=== PATIENT | female | born 1935 | race Caucasian/White ===

== ENCOUNTER → 2016-08-12 | Outpatient (CLI) | payer MEDICARE, MEDICAID ==
[2016-08-12 11:06] LABS: PROTHROMBIN TIME 38.2 SEC (11.4-15.4)
== END ==
LOC: OD 10:07
PROVIDERS: ATTEND Specialist
DX: I48.0 Paroxysmal atrial fibrillation (principal); Z79.01 Long term (current) use of anticoagulants
CPT/HCPCS: 36415; 85610

== ENCOUNTER → 2016-09-17 | Outpatient (CLI) | payer MEDICARE, MEDICAID ==
[2016-09-17 17:21] LABS: PROTHROMBIN TIME 18.2 SEC (11.4-15.4)
== END ==
LOC: OD 15:59
PROVIDERS: ATTEND Specialist
DX: I48.0 Paroxysmal atrial fibrillation (principal); Z79.01 Long term (current) use of anticoagulants
CPT/HCPCS: 36415; 85610

== ENCOUNTER → 2016-09-23 | Outpatient (CLI) | payer MEDICARE, MEDICAID ==
[2016-09-23 12:07] LABS: PROTHROMBIN TIME 26.5 SEC (11.4-15.4)
== END ==
LOC: OD 10:38
PROVIDERS: ATTEND Specialist
DX: I48.0 Paroxysmal atrial fibrillation (principal); Z79.01 Long term (current) use of anticoagulants
CPT/HCPCS: 36415; 85610

== ENCOUNTER 2016-10-10 10:32 | Emergency (ER) | payer MEDICARE, MEDICAID ==
--- NOTE | 2016-10-10 11:19 | ER Document Report ---
ED Medical Screen (RME) - General Chief Complaint: Pain All Over Stated Complaint: FLU SYMPTOMS Mode of Arrival: Wheelchair Information source: Patient Notes: Patient presents complaining of flulike symptoms with nasal congestion. Patient also complains of abdominal pain for the past week. Nausea with no vomiting or diarrhea. No cough, no fever. Pt does complain of chills hx; pacemaker, hypertension I have greeted and performed a rapid initial assessment of this patient. A comprehensive ED assessment and evaluation of the patient, analysis of test results and completion of the medical decision making process will be conducted by additional ED providers. TRAVEL OUTSIDE OF THE [place] IN LAST 30 DAYS: No - Related Data Allergies/Adverse Reactions: Penicillins Allergy (Mild, Verified 10/10/16 11:09) Hives Past Medical History - Social History Chew tobacco use (# tins/day): No Frequency of alcohol use: None Drug Abuse: None - Past Medical History Cardiac Medical History: Reports: Hx Coronary Artery Disease, Hx Hypertension Denies: Hx Heart Attack Pulmonary Medical History: Reports: Hx Asthma, Hx COPD Denies: Hx Bronchitis, Hx Pneumonia Neurological Medical History: Denies: Hx Cerebrovascular Accident, Hx Seizures Renal/ Medical History: Denies: Hx Peritoneal Dialysis Musculoskeltal Medical History: Reports Hx Arthritis Past Surgical History: Reports: Hx Cardiac Surgery - paced, Hx Orthopedic Surgery - cervical fusion, Hx Pacemaker - Immunizations Hx Diphtheria, Pertussis, Tetanus Vaccination: No Physical Exam - Vital signs Vitals: Temp Pulse Resp BP Pulse Ox 98.2 F 63 18 145/59 H 98 10/10/16 10:38 10/10/16 10:38 10/10/16 10:38 10/10/16 10:38 10/10/16 10:38 - Abdominal Tenderness: Tender - Upper abdomen Course - Vital Signs Vital signs: Temp Pulse Resp BP Pulse Ox 98.2 F 63 18 145/59 H 98 10/10/16 10:38 10/10/16 10:38 10/10/16 10:38 10/10/16 10:38 10/10/16 10:38
[2016-10-10 11:45] LABS: ABSOLUTE EOSINOPHILS # (AUTO) 0.1 10^3/uL (0.0-0.6); ABSOLUTE MONOCYTES (AUTO) 0.6 10^3/uL (0.1-1.4); ABSOLUTE NEUT (AUTO) 4.8 10^3/uL (1.7-8.2); BASOPHILS % (AUTO) 0.5 % (0-2); EOSINOPHILS % (AUTO) 1.4 % (0-6); HEMATOCRIT 38.6 % (36.0-47.0); HEMOGLOBIN 12.7 g/dL (12.0-15.5); HGB HCT DIFFERENCE -0.5; LYMPHOCYTES % (AUTO) 26.1 % (13-45); MEAN CORPUSCULAR HEMOGLOBIN 27.2 pg (27.0-33.4); MEAN CORPUSCULAR HGB CONC 32.9 g/dL (32.0-36.0); MEAN CORPUSCULAR VOLUME 83 fl (80-97); MONOCYTES % (AUTO) 7.6 % (3-13); RED BLOOD COUNT 4.67 10^6/uL (3.72-5.28); RED CELL DISTRIBUTION WIDTH 16.1 % (11.5-14.0); SEGMENTED NEUTROPHILS % (AUTO) 64.4 % (42-78); WHITE BLOOD COUNT 7.5 10^3/uL (4.0-10.5)
[2016-10-10 12:14] LABS: ALANINE AMINOTRANSFERASE 37 U/L (9-52); ALBUMIN 4.4 g/dL (3.5-5.0); ALKALINE PHOSPHATASE 102 U/L (38-126); ANION GAP 14 (5-19); ASPARTATE AMINO TRANSFERASE 24 U/L (14-36); BILIRUBIN,DIRECT 0.1 mg/dL (0.0-0.4); BILIRUBIN,TOTAL 0.6 mg/dL (0.2-1.3); BLOOD UREA NITROGEN 20 mg/dL (7-20); CALCIUM 10.4 mg/dL (8.4-10.2); CARBON DIOXIDE 28 mmol/L (22-30); CHLORIDE 100 mmol/L (98-107); CREATINE KINASE 89 U/L (30-135); CREATININE RESULT 0.84 mg/dL (0.52-1.25); GLUCOSE 118 mg/dL (75-110); LIPASE 51.6 U/L (23-300); POTASSIUM 4.4 mmol/L (3.6-5.0); SODIUM 141.7 mmol/L (137-145); TOTAL PROTEIN 7.4 g/dL (6.3-8.2)
[2016-10-10 12:24] LABS: APPEARANCE,URINE SLIGHTLY-CLOUDY; BILIRUBIN,URINE NEGATIVE (NEGATIVE); GLUCOSE, URINE NEGATIVE (NEGATIVE); KETONES,URINE NEGATIVE (NEGATIVE); LEUKOCYTE ESTERASE,URINE SMALL (NEGATIVE); NITRITE,URINE NEGATIVE (NEGATIVE); PROTEIN,URINE 30 mg/dL (NEGATIVE); URINE SPECIFIC GRAVITY 1.013; UROBILINOGEN,URINE NEGATIVE mg/dL (<2.0)
[2016-10-10 12:33] LABS: TROPONIN I < 0.012 ng/mL
--- NOTE | 2016-10-10 13:17 | EKG REPORT ---
SEVERITY:- ABNORMAL ECG - ATRIAL-PACED RHYTHM ABNORMAL S T, CONSIDER ISCHEMIA, DIFFUSE LEADS : Confirmed by: Ari Garcia MD 10-Oct-2016 13:17:15
[2016-10-10] MEDS ORDERED: NORMAL SALINE 1000 ML 1,000 ML IV ONE (14:46)
[2016-10-10] MEDS ORDERED: MAG HYDROX/AL HYDROX/SIMETH SUSP 30 ML UDCUP PO ONE (14:46)
[2016-10-10] MEDS ORDERED: LIDOCAINE 2% VISCOUS SOLN 20 ML UDCUP PO ONE (14:46)
[2016-10-10] MEDS ORDERED: METOCLOPRAMIDE HCL ORAL SOLN 10 MG/10 ML UDCUP PO ONE (14:46)
--- NOTE | 2016-10-10 14:58 | ER Document Report ---
ED GI/ - General Chief Complaint: Pain All Over Stated Complaint: FLU SYMPTOMS Mode of Arrival: Wheelchair Notes: Patient is an 81-year-old female, past medical history hypertension, GERD, presents with 3 days of epigastric pain, nausea and body aches. She is drinking , but not eating as much as normal. She got her flu shot this year. She denies vomiting, chest pain, shortness of breath, back pain, urinary symptoms, diarrhea, constipation, headache or neurologic symptoms. TRAVEL OUTSIDE OF THE [place] IN LAST 30 DAYS: No - Related Data Allergies/Adverse Reactions: Penicillins Allergy (Mild, Verified 10/10/16 11:09) Hives Past Medical History - General Information source: Patient - Social History Smoking Status: Never Smoker Chew tobacco use (# tins/day): No Frequency of alcohol use: None Drug Abuse: None Family History: Reviewed & Not Pertinent Patient has suicidal ideation: No Patient has homicidal ideation: No - Past Medical History Cardiac Medical History: Reports: Hx Coronary Artery Disease, Hx Hypertension Denies: Hx Heart Attack Pulmonary Medical History: Reports: Hx Asthma, Hx COPD Denies: Hx Bronchitis, Hx Pneumonia Neurological Medical History: Denies: Hx Cerebrovascular Accident, Hx Seizures Renal/ Medical History: Denies: Hx Peritoneal Dialysis Musculoskeltal Medical History: Reports Hx Arthritis Past Surgical History: Reports: Hx Cardiac Surgery - paced, Hx Orthopedic Surgery - cervical fusion, Hx Pacemaker - Immunizations Hx Diphtheria, Pertussis, Tetanus Vaccination: No Hx Pneumococcal Vaccination: 07/21/07 Review of Systems - Review of Systems Notes: REVIEW OF SYSTEMS: CONSTITUTIONAL: -fevers, -chills EENT: -eye pain, -difficulty swallowing, -nasal congestion CARDIOVASCULAR:-chest pain, -syncope. RESPIRATORY: -cough, -SOB GASTROINTESTINAL: +epigastric abdominal pain, +nausea, -vomiting, -diarrhea GENITOURINARY: -dysuria, -hematuria MUSCULOSKELETAL: -back pain, -neck pain SKIN: -rash or skin lesions. HEMATOLOGIC: -easy bruising or bleeding. LYMPHATIC: -swollen, enlarged glands. NEUROLOGICAL: -altered mental status or loss of consciousness, -headache, - neurologic symptoms PSYCHIATRIC: -anxiety, -depression. ALL OTHER SYSTEMS REVIEWED AND NEGATIVE. Physical Exam - Vital signs Vitals: Temp Pulse Resp BP Pulse Ox 98.2 F 63 18 145/59 H 98 10/10/16 10:38 10/10/16 10:38 10/10/16 10:38 10/10/16 10:38 10/10/16 10:38 - Notes Notes: PHYSICAL EXAMINATION: GENERAL: Well-appearing, well-nourished and in no acute distress. HEAD: Atraumatic, normocephalic. EYES: Pupils equal round and reactive to light, extraocular movements intact, sclera anicteric, conjunctiva are normal. ENT: nares patent, oropharynx clear without exudates. Moist mucous membranes. NECK: Normal range of motion, supple without lymphadenopathy LUNGS: Breath sounds clear to auscultation bilaterally and equal. No wheezes rales or rhonchi. HEART: Regular rate and rhythm without murmurs ABDOMEN: Mild epigastric tenderness, Soft, normoactive bowel sounds. No guarding, no rebound. No masses appreciated. EXTREMITIES: Normal range of motion, no pitting or edema. No cyanosis. NEUROLOGICAL: Cranial nerves grossly intact. Normal speech, normal gait. Normal sensory, motor, and reflex exams. PSYCH: Normal mood, normal affect. SKIN: Warm, Dry, normal turgor, no rashes or lesions noted. Course - Re-evaluation Re-evalutation: Patient appears very well. Mild epigastric tenderness, but labs are unremarkable, including normal lipase and troponin. EKG is unchanged. Considered AAA and mesenteric ischemia, but patient is very well-appearing and blood pressures are normal. After GI cocktail, patient is drinking water without any nausea, vomiting or abdominal pain. Instructed her to drink plenty of fluid and follow-up with her primary care physician. Given strict return precautions and she understands. - Vital Signs Vital signs: Temp Pulse Resp BP Pulse Ox 98.2 F 63 18 145/59 H 98 10/10/16 10:38 10/10/16 10:38 10/10/16 10:38 10/10/16 10:38 10/10/16 10:38 - Laboratory Result Diagrams: 10/10/16 11:20 10/10/16 11:20 Laboratory results interpreted by me: 10/10/16 10/10/16 10/10/16 11:20 11:20 12:05 RDW 16.1 H Glucose 118 H Calcium 10.4 H Urine Protein 30 H Ur Leukocyte Esterase SMALL H Urine Ascorbic Acid 40 H - Diagnostic Test Radiology reviewed: Image reviewed, Reports reviewed Radiology results interpreted by me: Acute abdominal series: NAD - EKG Interpretation by Me EKG shows normal: Sinus rhythm, [place], Intervals, QRS Complexes, ST-T Waves When compared to previous EKG there are: No significant change Additional EKG results interpreted by me: Inferior T-wave changes, similar to prior EKG Discharge - Discharge Clinical Impression: Epigastric pain Condition: Stable Disposition: HOME, SELF-CARE Additional Instructions: ABDOMINAL PAIN: There are many causes of abdominal pain. Pain can mean a serious problem requiring surgery (such as appendicitis). It can also be an innocent problem that goes away on its own (such as a viral infection). Often, time must pass to determine the cause of pain. The physician does not feel that hospitalization is necessary, at present. Things may change within the next 24 hours. Call the doctor or come back for re- examination if any problems occur, such as: (1) Pain that becomes more severe, steady, or becomes concentrated in one specific area. Also, pain that is more severe with movement or coughing. (2) Vomiting that persists or becomes more frequent. (3) Blood in the vomitus, urine, or bowel movements. Blood in the stool may have a tarry or black appearance. (4) Shaking chills or fever greater than 100 degrees F. (5) The abdomen becomes more distended or swollen. (6) Bowel movements cease. (7) Failure to improve as expected. NORMAL EXAM AND WORKUP: At this time, your examination and workup show no significant abnormality. No significant abnormal physical findings are noted. All laboratory, EKG, and imaging (x-ray, CT scans, ultrasound) studies that were ordered show no significant abnormality. Although your examination and all studies that were ordered showed no significant abnormal finding, there are no examinations and no studies that are 100% accurate. There is always the possibility that some abnormality could exist and not be detected with physical examination or within the limits and capabilities of laboratory and other studies. You should return or follow up as you were instructed on your visit today for further evaluation if your symptoms do not resolve. ANTINAUSEA MEDICATION: You have been given a medication to suppress nausea and vomiting. This type of medication can be given as a shot, pill, or suppository. It will usually last for many hours. Pills and shots usually last six to eight hours, suppositories last about 12 hours. For the typical illness, only one or two doses of the medication may be necessary. Mild lightheadedness may occur. This type of medicine can cause drowsiness. Do not drive or operate dangerous machinery while under its influence. Do not mix with alcohol. See your doctor at once if you have muscle spasms or tightness, or uncontrollable motions (particularly of the neck, mouth, or jaw). Persistent vomiting or severe lightheadedness should also be evaluated by the physician. FOLLOW-UP CARE: If you have been referred to a physician for follow-up care, call the physician s office for an appointment as you were instructed or within the next two days. If you experience worsening or a significant change in your symptoms, notify the physician immediately or return to the Emergency Department at any time for re-evaluation. Gastritis You have an inflammation of the stomach called gastritis. This commonly causes upper abdominal pain, nausea, and vomiting. In severe cases, bleeding of the stomach lining can occur. Gastritis can be caused by bacteria or viruses , alcohol, or stomach-irritating drugs. Begin with sips of clear liquids. Take increasing amounts of fluid over the first 24 hours. Then start small amounts of bland foods (such as dry toast , applesauce, mashed potato). Gradually resume your usual diet. You should take antacids every two hours until the pain has subsided. Acid -suppressing drugs may be prescribed as well. Avoid aspirin, caffeine, tobacco , and alcohol. If the abdominal pain worsens, or there is evidence of major bleeding in the stomach (such as black, tarry stool, bloody or black vomit, or lightheadedness), you should return immediately. Call the doctor if you aren't improved in 24 to 36 hours. Prescriptions: Famotidine [Pepcid 20 mg Tablet] 20 mg PO BID #20 tablet
[2016-10-10 15:50] VITALS: BP 164/72
== END 2016-10-10 15:30 | disposition home or self-care (01) ==
LOC: ER 10:32
DX: R10.13 Epigastric pain (principal); I10 Essential (primary) hypertension; R11.0 Nausea; I25.10 Atherosclerotic heart disease of native coronary artery without angina pectoris; J44.9 Chronic obstructive pulmonary disease, unspecified; Z88.0 Allergy status to penicillin; Z87.19 Personal history of other diseases of the digestive system; Z95.0 Presence of cardiac pacemaker
CPT/HCPCS: 93005; 99284; 36415; 82553; 82550; 83690; 85025; 80053; 81001; 84484; 74022; 93010; J3490; A9270

== ENCOUNTER 2016-10-17 16:22 | Emergency (ER) | payer MEDICARE, MEDICAID ==
[2016-10-17 18:32] LABS: APPEARANCE,URINE CLEAR; BILIRUBIN,URINE NEGATIVE (NEGATIVE); GLUCOSE, URINE NEGATIVE (NEGATIVE); KETONES,URINE NEGATIVE (NEGATIVE); LEUKOCYTE ESTERASE,URINE NEGATIVE (NEGATIVE); NITRITE,URINE NEGATIVE (NEGATIVE); PROTEIN,URINE NEGATIVE (NEGATIVE); URINE SPECIFIC GRAVITY 1.009; UROBILINOGEN,URINE NEGATIVE mg/dL (<2.0)
[2016-10-17 18:48] LABS: ABSOLUTE EOSINOPHILS # (AUTO) 0.1 10^3/uL (0.0-0.6); ABSOLUTE LYMPHOCYTES (AUTO) 1.4 10^3/uL (0.5-4.7); ABSOLUTE MONOCYTES (AUTO) 0.5 10^3/uL (0.1-1.4); ABSOLUTE NEUT (AUTO) 3.4 10^3/uL (1.7-8.2); BASOPHILS % (AUTO) 0.6 % (0-2); EOSINOPHILS % (AUTO) 1.7 % (0-6); HEMATOCRIT 37.7 % (36.0-47.0); HEMOGLOBIN 12.5 g/dL (12.0-15.5); HGB HCT DIFFERENCE -0.2; LYMPHOCYTES % (AUTO) 26.4 % (13-45); MEAN CORPUSCULAR HEMOGLOBIN 27.4 pg (27.0-33.4); MEAN CORPUSCULAR HGB CONC 33.2 g/dL (32.0-36.0); MEAN CORPUSCULAR VOLUME 83 fl (80-97); RED BLOOD COUNT 4.56 10^6/uL (3.72-5.28); SEGMENTED NEUTROPHILS % (AUTO) 62.3 % (42-78); WHITE BLOOD COUNT 5.5 10^3/uL (4.0-10.5)
[2016-10-17] MEDS ORDERED: METOCLOPRAMIDE HCL ORAL SOLN 10 MG/10 ML UDCUP PO ONE (18:49)
[2016-10-17] MEDS ORDERED: LIDOCAINE 2% VISCOUS SOLN 20 ML UDCUP PO ONE (18:49)
[2016-10-17] MEDS ORDERED: MAG HYDROX/AL HYDROX/SIMETH SUSP 30 ML UDCUP PO ONE (18:49)
--- NOTE | 2016-10-17 18:50 | ER Document Report ---
ED General - General Chief Complaint: Abdominal Pain Stated Complaint: ABDOMINAL PAIN Notes: Patient is an 81-year-old female who presents with 3 weeks of epigastric abdominal pain. Pain is described as a constant, burning, aching pain. Eating seems to worsen the pain. Nothing improves the pain. She was seen approximately one week ago in the emergency department for the same complaint and has seen her primary care doctor. She was referred back to the emergency department by her primary care physician today due to becoming lightheaded when standing although vitals sent with the patient did not indicate true orthostasis that she had a consistent heart rate in all positions. Patient denies any history of similar symptoms in the past. She denies any melena, hematochezia, vomiting or hemoptysis. TRAVEL OUTSIDE OF THE [place] IN LAST 30 DAYS: No - Related Data Allergies/Adverse Reactions: Penicillins Allergy (Mild, Verified 10/17/16 18:21) Hives celecoxib Allergy (Verified 10/17/16 18:21) Past Medical History - General Information source: Patient - Social History Smoking Status: Never Smoker Frequency of alcohol use: None Drug Abuse: None Lives with: Family Family History: Reviewed & Not Pertinent - Past Medical History Cardiac Medical History: Reports: Hx Coronary Artery Disease, Hx Hypertension Denies: Hx Heart Attack Pulmonary Medical History: Reports: Hx Asthma, Hx COPD Denies: Hx Bronchitis, Hx Pneumonia Neurological Medical History: Denies: Hx Cerebrovascular Accident, Hx Seizures Renal/ Medical History: Denies: Hx Peritoneal Dialysis Musculoskeltal Medical History: Reports Hx Arthritis Past Surgical History: Reports: Hx Cardiac Surgery - paced, Hx Orthopedic Surgery - cervical fusion, Hx Pacemaker - Immunizations Hx Diphtheria, Pertussis, Tetanus Vaccination: No Hx Pneumococcal Vaccination: 07/21/07 Review of Systems - Review of Systems Notes: Constitutional: Negative for fever. HENT: Negative for sore throat. Eyes: Negative for visual changes. Cardiovascular: Negative for chest pain. Respiratory: Negative for shortness of breath. Gastrointestinal: Positive for abdominal pain, negative for vomiting or diarrhea. Genitourinary: Negative for dysuria. Musculoskeletal: Negative for back pain. Skin: Negative for rash. Neurological: Negative for headaches, weakness or numbness. 10 point ROS negative except as marked above and in HPI. Physical Exam - Vital signs Vitals: Resp Pulse Ox 13 97 10/17/16 17:06 10/17/16 17:06 Interpretation: Normal Notes: PHYSICAL EXAMINATION: GENERAL: Well-appearing, well-nourished and in no acute distress. HEAD: Atraumatic, normocephalic. EYES: Pupils equal round and reactive to light, extraocular movements intact, sclera anicteric, conjunctiva are normal. ENT: nares patent, oropharynx clear without exudates. Moist mucous membranes. NECK: Normal range of motion, supple without lymphadenopathy LUNGS: Breath sounds clear to auscultation bilaterally and equal. No wheezes rales or rhonchi. HEART: Regular rate and rhythm without murmurs ABDOMEN: Soft, mild epigastric pain on palpation, normoactive bowel sounds. No guarding, no rebound. No masses appreciated. EXTREMITIES: Normal range of motion, no pitting or edema. No cyanosis. NEUROLOGICAL: No focal neurological deficits. Moves all extremities spontaneously and on command. PSYCH: Normal mood, normal affect. SKIN: Warm, Dry, normal turgor, no rashes or lesions noted. Course - Re-evaluation Re-evalutation: 10/17/16 18:49 Patient presents with intermittent epigastric abdominal pain for the past several weeks. She continues to have symptomatic orthostasis when standing likely secondary to decreased oral intake in the setting of epigastric discomfort. She has no focal right upper quadrant tenderness or clinical history to suggest acute biliary pathology, hepatitis or acute pancreatitis. On exam she is focally tender only in the epigastrium I believe her presentation is likely most consistent with ongoing gastric or duodenal irritation given her clinical history. A CT scan of the abdomen and pelvis which will be obtained to exclude a more concerning alternative pathology including ileus, bowel obstruction, less likely mesenteric ischemia given clinical history is normal, will plan for discharge with GI follow-up for formal endoscopy and H. pylori testing 10/17/16 21:09 CT scan of the abdomen and pelvis is unremarkable. Patient's pain is overall improved at this time.At this time will discharge with return precautions and follow-up recommendations. Verbal discharge instructions given a the bedside and opportunity for questions given. Medication warnings reviewed. Patient is in agreement with this plan and has verbalized understanding of return precautions and the need for primary care follow-up in the next 24-72 hours. - Vital Signs Vital signs: Temp Pulse Resp BP Pulse Ox 18 156/56 H 94 10/17/16 21:12 10/17/16 21:12 10/17/16 21:12 - Laboratory Result Diagrams: 10/17/16 17:15 10/17/16 17:15 Laboratory results interpreted by me: 10/17/16 10/17/16 10/17/16 17:15 17:15 18:19 RDW 16.0 H BUN 22 H Glucose 155 H Urine Ascorbic Acid 40 H Discharge - Discharge Clinical Impression: Epigastric pain Condition: Good Disposition: HOME, SELF-CARE Additional Instructions: You will need to follow-up with a GI specialist for your complaints and likely have an endoscopy done to better evaluate the cause of your pain which I believe is likely coming from your stomach or upper intestine. Your primary care doctor should also consider testing for H. pylori infection. Your CT scan and labs are all normal here today. Return if you worsening pain, chest pain, shortness of breath, persistent vomiting, or pass out. Please also return if you have any additional symptoms that are concerning to you. Referrals: CHANTELL HUNTER MD [Primary Care Provider] - Follow up tomorrow ORESTES ROME MD [ACTIVE STAFF] - Follow up in 3-5 days
[2016-10-17 18:56] LABS: ALANINE AMINOTRANSFERASE 32 U/L (9-52); ALBUMIN 4.3 g/dL (3.5-5.0); ALKALINE PHOSPHATASE 97 U/L (38-126); ANION GAP 13 (5-19); ASPARTATE AMINO TRANSFERASE 30 U/L (14-36); BILIRUBIN,DIRECT 0.3 mg/dL (0.0-0.4); BILIRUBIN,TOTAL 0.5 mg/dL (0.2-1.3); BLOOD UREA NITROGEN 22 mg/dL (7-20); CALCIUM 9.7 mg/dL (8.4-10.2); CARBON DIOXIDE 27 mmol/L (22-30); CHLORIDE 98 mmol/L (98-107); CREATININE RESULT 0.76 mg/dL (0.52-1.25); GLUCOSE 155 mg/dL (75-110); LIPASE 49.9 U/L (23-300); POTASSIUM 4.6 mmol/L (3.6-5.0); SODIUM 137.8 mmol/L (137-145); TOTAL PROTEIN 7.4 g/dL (6.3-8.2)
[2016-10-17 21:20] VITALS: BP 156/56
== END 2016-10-17 21:21 | disposition home or self-care (01) ==
LOC: ER 16:22
DX: R10.13 Epigastric pain (principal)
CPT/HCPCS: 99284; 36415; 83690; 85025; 80053; 81001; 74177; J3490; A9270

== ENCOUNTER → 2016-10-18 | Outpatient (CLI) | payer MEDICARE, MEDICAID | LOC: OD 09:28 | PROVIDERS: ATTEND Family Medicine | DX: R10.816 Epigastric abdominal tenderness (principal) | CPT/HCPCS: 36415; 86677 ==

== ENCOUNTER → 2016-10-30 | Outpatient (CLI) | payer MEDICARE, MEDICAID ==
[2016-10-30 10:09] LABS: PROTHROMBIN TIME 43.7 SEC (11.4-15.4)
[2016-10-30 10:38] LABS: ALANINE AMINOTRANSFERASE 28 U/L (9-52); ALBUMIN 4.3 g/dL (3.5-5.0); ALKALINE PHOSPHATASE 90 U/L (38-126); ANION GAP 14 (5-19); ASPARTATE AMINO TRANSFERASE 21 U/L (14-36); BILIRUBIN,DIRECT 0.2 mg/dL (0.0-0.4); BILIRUBIN,TOTAL 0.7 mg/dL (0.2-1.3); BLOOD UREA NITROGEN 20 mg/dL (7-20); CALCIUM 9.8 mg/dL (8.4-10.2); CARBON DIOXIDE 26 mmol/L (22-30); CHLORIDE 101 mmol/L (98-107); GLUCOSE 106 mg/dL (75-110); POTASSIUM 4.8 mmol/L (3.6-5.0); SODIUM 141.2 mmol/L (137-145); TOTAL PROTEIN 7.1 g/dL (6.3-8.2)
== END ==
LOC: OD 08:46
PROVIDERS: ATTEND Internal Medicine
DX: Z79.01 Long term (current) use of anticoagulants (principal); I48.0 Paroxysmal atrial fibrillation; E53.9 Vitamin B deficiency, unspecified; M19.90 Unspecified osteoarthritis, unspecified site; J44.9 Chronic obstructive pulmonary disease, unspecified; I27.2 Other secondary pulmonary hypertension; I36.9 Nonrheumatic tricuspid valve disorder, unspecified; E66.3 Overweight; Z01.810 Encounter for preprocedural cardiovascular examination
CPT/HCPCS: 36415; 80053; 85610

== ENCOUNTER → 2016-11-29 | Outpatient (CLI) | payer MEDICARE, MEDICAID ==
[2016-11-29 16:46] LABS: PROTHROMBIN TIME 42.3 SEC (11.4-15.4)
== END ==
LOC: OD 15:03
PROVIDERS: ATTEND Specialist
DX: Z79.01 Long term (current) use of anticoagulants (principal); I48.0 Paroxysmal atrial fibrillation
CPT/HCPCS: 36415; 85610

== ENCOUNTER → 2016-12-09 | Outpatient (CLI) | payer MEDICARE, MEDICAID ==
[2016-12-09 11:32] LABS: PROTHROMBIN TIME 16.7 SEC (11.4-15.4)
== END ==
LOC: OD 10:32
PROVIDERS: ATTEND Specialist
DX: I48.0 Paroxysmal atrial fibrillation (principal); Z79.01 Long term (current) use of anticoagulants
CPT/HCPCS: 36415; 85610

== ENCOUNTER → 2016-12-24 | Outpatient (CLI) | payer MEDICARE, MEDICAID ==
[2016-12-24 11:22] LABS: PARTIAL THROMBOPLASTIN TIME 27.3 SEC (23.5-35.8); PROTHROMBIN TIME 13.1 SEC (11.4-15.4)
== END ==
LOC: OD 10:03
PROVIDERS: ATTEND Physician Assistant
DX: Z79.01 Long term (current) use of anticoagulants (principal); Z79.02 Long term (current) use of antithrombotics/antiplatelets
CPT/HCPCS: 36415; 85610; 85730

== ENCOUNTER → 2017-01-01 | Outpatient (CLI) | payer MEDICARE, MEDICAID ==
[2017-01-01 10:29] LABS: ABSOLUTE EOSINOPHILS # (AUTO) 0.2 10^3/uL (0.0-0.6); ABSOLUTE LYMPHOCYTES (AUTO) 1.6 10^3/uL (0.5-4.7); ABSOLUTE MONOCYTES (AUTO) 0.5 10^3/uL (0.1-1.4); ABSOLUTE NEUT (AUTO) 2.6 10^3/uL (1.7-8.2); BASOPHILS % (AUTO) 0.5 % (0-2); EOSINOPHILS % (AUTO) 3.6 % (0-6); HEMATOCRIT 34.7 % (36.0-47.0); HEMOGLOBIN 11.2 g/dL (12.0-15.5); HGB HCT DIFFERENCE -1.1; LYMPHOCYTES % (AUTO) 31.9 % (13-45); MEAN CORPUSCULAR HEMOGLOBIN 28.3 pg (27.0-33.4); MEAN CORPUSCULAR HGB CONC 32.2 g/dL (32.0-36.0); MEAN CORPUSCULAR VOLUME 88 fl (80-97); MONOCYTES % (AUTO) 10.2 % (3-13); RED BLOOD COUNT 3.94 10^6/uL (3.72-5.28); RED CELL DISTRIBUTION WIDTH 16.4 % (11.5-14.0); SEGMENTED NEUTROPHILS % (AUTO) 53.8 % (42-78); WHITE BLOOD COUNT 4.9 10^3/uL (4.0-10.5)
[2017-01-01 10:31] LABS: PROTHROMBIN TIME 15.4 SEC (11.4-15.4)
[2017-01-01 11:03] LABS: ALANINE AMINOTRANSFERASE 25 U/L (9-52); ALBUMIN 4.1 g/dL (3.5-5.0); ALKALINE PHOSPHATASE 98 U/L (38-126); ANION GAP 10 (5-19); ASPARTATE AMINO TRANSFERASE 20 U/L (14-36); BILIRUBIN,DIRECT 0.2 mg/dL (0.0-0.4); BILIRUBIN,TOTAL 0.5 mg/dL (0.2-1.3); BLOOD UREA NITROGEN 21 mg/dL (7-20); CALCIUM 9.2 mg/dL (8.4-10.2); CARBON DIOXIDE 27 mmol/L (22-30); CHLORIDE 102 mmol/L (98-107); CREATININE RESULT 0.75 mg/dL (0.52-1.25); GLUCOSE 91 mg/dL (75-110); POTASSIUM 4.7 mmol/L (3.6-5.0); SODIUM 138.9 mmol/L (137-145); TOTAL PROTEIN 7.2 g/dL (6.3-8.2)
== END ==
LOC: OD 09:09
PROVIDERS: ATTEND Family Medicine
DX: I48.0 Paroxysmal atrial fibrillation (principal); R73.01 Impaired fasting glucose; Z79.01 Long term (current) use of anticoagulants; Z79.899 Other long term (current) drug therapy
CPT/HCPCS: 36415; 80048; 80076; 83036; 85025; 85610

== ENCOUNTER → 2017-01-08 | Outpatient (CLI) | payer MEDICARE, MEDICAID ==
--- NOTE | 2017-01-08 12:24 | RADIOLOGY REPORT (SQ) ---
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 Images revi ewed with lung, soft tissue and bone windows. Reconstructed coronal and sagittal MPR images reviewed . All images stored on PACS. All CT scanners at this facility use dose modulation, iterative reconstruction, and/or weight based d osing when appropriate to reduce radiation dose to as low as reasonably achievable (ALARA). [facility]: Dose Right [facility]: CareDose [facility]: Dose Right [facility]: Teradose 4D [facility]: [employer] RADIATION DOSE: Up-to-date CT equipment and radiation dose reduction techniques were employed. CTDIv ol: 14.1 mGy. DLP: 392 mGy-cm. mGy. LIMITATIONS: None. FINDINGS: SEGMENTATION: Normal. No transitional anatomy. ALIGNMENT: Normal. VERTEBRAL BODIES: There is a chronic L1 upper endplate depression with about 25% loss of height. Bon e cement post kyphoplasty. This is similar compared to CT exam 05/28/2016. DISCS: Study performed without intrathecal contrast. T11-12 is unremarkable. Minimal posterior disc bulging at T12-L1 without central or foraminal encroachment. Minimal posterior disc bulging and facet and ligament hypertrophy at L1-2 without significant central or foraminal encroachment. Minimal posterior disc bulging at L2-3 without significant central or foraminal encroachment. Mild diffuse posterior disc bulging is present at L3-4 with moderate bilateral facet and ligament hyp ertrophy. No central stenosis. Mild right foraminal narrowing, moderate left foraminal narrowing At L4-5, patient is post bilateral laminectomy with bone graft material. Slight asymmetric rightward thecal sac flattening from posterior granulation tissue. There is moderate to high-grade right fora brady narrowing similar compared to myelogram 05/28/2016. Mild left foraminal narrowing without exiti ng left L4 nerve root impingement. At L5-S1, no significant central or foraminal encroachment is present. PEDICLES, TRANSVERSE PROCESSES: No fractures. No dislocation. No acute findings. FACETS, POSTERIOR ELEMENTS: Post bilateral laminectomy at L4-5 with bone graft material. Asymmetric rightward posterior granulation soft tissue mildly flattens the posterior rightward thecal sac, simil ar compared to myelogram 05/28/2016 HARDWARE: None in the spine. VISUALIZED RIBS: No fractures. SOFT TISSUES: No significant or acute finding in adjacent soft tissues. OTHER: No other significant finding. IMPRESSION: Similar appearance of the lumbar spine compared to prior post myelogram images 6. Right-sided L4-5 foraminal stenosis is present. Prior kyphoplasty with bone cement at L1. TECHNICAL DOCUMENTATION: JOB ID: [id number] Quality ID # [id number]: Final reports with documentation of one or more dose reduction techniques (e.g., Au tomated exposure control, adjustment of the mA and/or kV according to patient size, use of iterative reconstruction technique) 2010 [employer]- All Rights Reserved
== END ==
LOC: RAD 09:59
PROVIDERS: ATTEND Physician Assistant
DX: M51.37 Other intervertebral disc degeneration, lumbosacral region (principal); M51.26 Other intervertebral disc displacement, lumbar region
CPT/HCPCS: 72131

== ENCOUNTER → 2017-01-14 | Outpatient (CLI) | payer MEDICARE, MEDICAID ==
--- NOTE | 2017-01-14 09:43 | RADIOLOGY REPORT (SQ) ---
EXAM DESCRIPTION: TIBIA FIBULA RIGHT COMPLETED DATE/TIME: 01/14/2017 9:14 am REASON FOR STUDY: PAIN IN RT FOOT AND RT LOWER LEG M79.671 PAIN IN RIGHT FOOT M79.661 PAIN IN RIGH T LOWER LEG COMPARISON: 03/29/2013 NUMBER OF VIEWS: Two views. TECHNIQUE: Two radiographic images acquired of the right tibia and fibula to include the knee and an kle in at least one projection. LIMITATIONS: None. FINDINGS: MINERALIZATION: Osteopenic BONES: No acute fracture or dislocation. No worrisome bone lesions. SOFT TISSUES: No obvious swelling or foreign body. OTHER: No other significant finding. IMPRESSION: NEGATIVE STUDY OF THE RIGHT TIBIA AND FIBULA. NO RADIOGRAPHIC EVIDENCE OF ACUTE INJURY. TECHNICAL DOCUMENTATION: JOB ID: [id number] [employer]- All Rights Reserved
--- NOTE | 2017-01-14 09:44 | RADIOLOGY REPORT (SQ) ---
EXAM DESCRIPTION: FOOT RIGHT COMPLETE COMPLETED DATE/TIME: 01/14/2017 9:14 am REASON FOR STUDY: PAIN IN RT FOOT AND RT LOWER LEG M79.671 PAIN IN RIGHT FOOT M79.661 PAIN IN RIGH T LOWER LEG COMPARISON: 03/29/2013, 06/01/2010, 10/22/2007 NUMBER OF VIEWS: Three views. TECHNIQUE: AP, lateral and oblique radiographic images acquired of the right foot. LIMITATIONS: None. FINDINGS: MINERALIZATION: Osteopenic BONES: No acute fracture or dislocation. No worrisome bone lesions. Small dorsal and plantar calcan eal spurs JOINTS: No effusions. SOFT TISSUES: No soft tissue swelling. No foreign body. OTHER: No other significant finding. IMPRESSION: NEGATIVE STUDY OF THE RIGHT FOOT. NO RADIOGRAPHIC EVIDENCE OF ACUTE INJURY. TECHNICAL DOCUMENTATION: JOB ID: [id number] [email or web address]- All Rights Reserved
== END ==
LOC: OD 08:29
PROVIDERS: ATTEND Family Medicine
DX: M79.671 Pain in right foot (principal); M79.661 Pain in right lower leg

== ENCOUNTER → 2017-01-16 | Outpatient (CLI) | payer MEDICARE, MEDICAID ==
[2017-01-16 09:56] LABS: PROTHROMBIN TIME 17.8 SEC (11.4-15.4)
== END ==
LOC: OD 08:36
PROVIDERS: ATTEND Specialist
DX: I48.0 Paroxysmal atrial fibrillation (principal); Z79.01 Long term (current) use of anticoagulants
CPT/HCPCS: 36415; 85610

== ENCOUNTER → 2017-01-27 | Outpatient (CLI) | payer MEDICARE, MEDICAID ==
[2017-01-27 12:49] LABS: PARTIAL THROMBOPLASTIN TIME 30.4 SEC (23.5-35.8); PROTHROMBIN TIME 13.7 SEC (11.4-15.4)
== END ==
LOC: OD 10:40
PROVIDERS: ATTEND Physician Assistant Medical
DX: Z79.01 Long term (current) use of anticoagulants (principal); Z51.81 Encounter for therapeutic drug level monitoring
CPT/HCPCS: 36415; 85610; 85730

== ENCOUNTER → 2017-02-11 | Outpatient (CLI) | payer MEDICARE, MEDICAID ==
--- NOTE | 2017-02-11 12:38 | RADIOLOGY REPORT (SQ) ---
EXAM DESCRIPTION: CHEST PA/LATERAL COMPLETED DATE/TIME: 02/11/2017 12:30 pm REASON FOR STUDY: ACUTE BRONCHITIS, UNSPECIFIED J20.9 ACUTE BRONCHITIS, UNSPECIFIED COMPARISON: 01/12/2016. NUMBER OF VIEWS: Two view. TECHNIQUE: Frontal and lateral radiographic views of the chest acquired. LIMITATIONS: None. FINDINGS: LUNGS AND PLEURA: Stable mild chronic pleural and parenchymal scarring. No infiltrates, m asses or pneumothorax. No pleural effusion. Attenuated blood vessels and flattened jaron-diaphragms. MEDIASTINUM AND HILAR STRUCTURES: No masses. No contour abnormalities. HEART AND VASCULAR STRUCTURES: Heart normal in size and contour. No evidence for failure. BONES: No acute findings. Previous kyphoplasty. HARDWARE: Pacemaker. Hardware in the cervical spine. OTHER: No other significant finding. IMPRESSION: COPD. MILD CHRONIC SCARRING. NO ACUTE RADIOGRAPHIC FINDING IN THE CHEST. TECHNICAL DOCUMENTATION: JOB ID: [id number] [employer]- All Rights Reserved
== END ==
LOC: OD 12:16
PROVIDERS: ATTEND Family Medicine
DX: J20.9 Acute bronchitis, unspecified (principal)
CPT/HCPCS: 71020

== ENCOUNTER → 2017-02-11 | Outpatient (CLI) | payer MEDICARE, MEDICAID ==
[2017-02-11 12:40] LABS: ABSOLUTE EOSINOPHILS # (AUTO) 0.1 10^3/uL (0.0-0.6); ABSOLUTE LYMPHOCYTES (AUTO) 1.8 10^3/uL (0.5-4.7); ABSOLUTE MONOCYTES (AUTO) 0.8 10^3/uL (0.1-1.4); ABSOLUTE NEUT (AUTO) 3.5 10^3/uL (1.7-8.2); BASOPHILS % (AUTO) 0.7 % (0-2); EOSINOPHILS % (AUTO) 2.3 % (0-6); HEMATOCRIT 33.6 % (36.0-47.0); HEMOGLOBIN 11.3 g/dL (12.0-15.5); HGB HCT DIFFERENCE 0.3; LYMPHOCYTES % (AUTO) 29.1 % (13-45); MEAN CORPUSCULAR HEMOGLOBIN 29.2 pg (27.0-33.4); MEAN CORPUSCULAR HGB CONC 33.7 g/dL (32.0-36.0); MEAN CORPUSCULAR VOLUME 87 fl (80-97); MONOCYTES % (AUTO) 12.1 % (3-13); RED BLOOD COUNT 3.88 10^6/uL (3.72-5.28); RED CELL DISTRIBUTION WIDTH 15.1 % (11.5-14.0); SEGMENTED NEUTROPHILS % (AUTO) 55.8 % (42-78); WHITE BLOOD COUNT 6.2 10^3/uL (4.0-10.5)
[2017-02-11 12:45] LABS: PROTHROMBIN TIME 13.1 SEC (11.4-15.4)
== END ==
LOC: OD 11:57
PROVIDERS: ATTEND Specialist
DX: Z79.01 Long term (current) use of anticoagulants (principal); I48.0 Paroxysmal atrial fibrillation; J20.9 Acute bronchitis, unspecified
CPT/HCPCS: 36415; 71020; 85025; 85610; 87070; 87077; 87186; 87205

== ENCOUNTER → 2017-03-06 | Outpatient (CLI) | payer MEDICARE, MEDICAID ==
[2017-03-06 12:04] LABS: PROTHROMBIN TIME 30.1 SEC (11.4-15.4)
== END ==
LOC: OD 10:35
PROVIDERS: ATTEND Specialist
DX: Z79.01 Long term (current) use of anticoagulants (principal); I48.0 Paroxysmal atrial fibrillation
CPT/HCPCS: 36415; 85610

== ENCOUNTER → 2017-04-10 | Outpatient (CLI) | payer MEDICARE, MEDICAID ==
[2017-04-10 16:01] LABS: PROTHROMBIN TIME 33.3 SEC (11.4-15.4)
== END ==
LOC: OD 14:48
PROVIDERS: ATTEND Specialist
DX: I48.0 Paroxysmal atrial fibrillation (principal); Z79.01 Long term (current) use of anticoagulants
CPT/HCPCS: 36415; 85610

== ENCOUNTER → 2017-04-25 | Outpatient (CLI) | payer MEDICARE, MEDICAID | LOC: OD 15:58 | PROVIDERS: ATTEND Specialist | DX: I48.0 Paroxysmal atrial fibrillation (principal); Z79.01 Long term (current) use of anticoagulants | CPT/HCPCS: 36415; 85610 ==

== ENCOUNTER → 2017-05-13 | Outpatient (CLI) | payer MEDICARE, MEDICAID ==
[2017-05-13 17:01] LABS: PROTHROMBIN TIME 15.2 SEC (11.4-15.4)
== END ==
LOC: OD 15:29
PROVIDERS: ATTEND Physician Assistant
DX: Z51.81 Encounter for therapeutic drug level monitoring (principal); Z79.01 Long term (current) use of anticoagulants
CPT/HCPCS: 36415; 85610; 85730

== ENCOUNTER → 2017-06-30 | Outpatient (CLI) | payer MEDICARE, MEDICAID ==
[2017-06-30 10:09] LABS: PROTHROMBIN TIME 29.5 SEC (11.4-15.4)
[2017-06-30 10:27] LABS: ALANINE AMINOTRANSFERASE 31 U/L (9-52); ALBUMIN 3.8 g/dL (3.5-5.0); ALKALINE PHOSPHATASE 77 U/L (38-126); ASPARTATE AMINO TRANSFERASE 20 U/L (14-36); BILIRUBIN,DIRECT 0.2 mg/dL (0.0-0.4); BILIRUBIN,TOTAL 0.4 mg/dL (0.2-1.3); CHOLESTEROL 170.16 mg/dL (0-200); Direct HDL 57 mg/dL (>40); TOTAL PROTEIN 6.2 g/dL (6.3-8.2); TRIGLYCERIDES 143 mg/dL (<150)
[2017-06-30 10:38] LABS: DIRECT LDL 76 mg/dL (<100)
== END ==
LOC: OD 09:33
PROVIDERS: ATTEND Specialist
DX: Z79.01 Long term (current) use of anticoagulants (principal); I48.0 Paroxysmal atrial fibrillation; E78.5 Hyperlipidemia, unspecified; Z95.0 Presence of cardiac pacemaker; I36.9 Nonrheumatic tricuspid valve disorder, unspecified; E53.9 Vitamin B deficiency, unspecified; E66.3 Overweight; I27.20 Pulmonary hypertension, unspecified; J44.9 Chronic obstructive pulmonary disease, unspecified; J45.909 Unspecified asthma, uncomplicated; M19.90 Unspecified osteoarthritis, unspecified site
CPT/HCPCS: 36415; 80061; 80076; 85610

== ENCOUNTER → 2017-07-09 | Outpatient (CLI) | payer MEDICARE, MEDICAID ==
--- NOTE | 2017-07-09 18:42 | WOMENS IMAGING REPORT ---
EXAM DESCRIPTION: 3D SCREENING MAMMO BILAT COMPLETED DATE/TIME: 07/09/2017 9:53 am REASON FOR STUDY: ROUTINE SCREENING; Z12.31 Z12.31 ENCNTR SCREEN MAMMOGRAM FOR MALIGNANT NEOPLASM O F AKIKO COMPARISON: Multiple since 2009 TECHNIQUE: Standard craniocaudal and mediolateral oblique views of each breast recorded using digita l acquisition and breast tomosynthesis. LIMITATIONS: None. FINDINGS: Findings present which are benign by mammographic criteria. No suspicious masses, calcifi cations or architectural distortion. Pertinent benign findings: Stable benign bilateral breast parenchymal and vascular calcifications. Read with the assistance of CAD. .[facility] - R2 Cenova Version 1.3 .[facility] Imaging - R2 Cenova Version 1.3 .[facility] Imaging - R2 Cenova Version 2.4 .[facility] [place]2 Cenova Version 2.4 .[facility] - R2 Tie Presser Version 9.2 Benign mammographic findings may include one or more of the following: Smooth masses, popcorn/rim/co arse calcifications, asymmetries, post-procedure changes, and lesions with long-standing stability. IMPRESSION: BENIGN MAMMOGRAPHIC FINDINGS. BIRADS 2 BREAST DENSITY: c. The breasts are heterogeneously dense, which may obscure small masses. BIRAD: 2 BENIGN FINDING(S) RECOMMENDATION: RECOMMENDATION: ROUTINE SCREENING Please continue yearly bilateral screening tomosynthesis in June 2018 COMMENT: The patient has been notified of the results by letter per SA requirements. Additional no tification policies are in place for contacting patient with suspicious or incomplete findings. Quality ID #[id number]: The [employer] recommends an annual screening mammogram for women aged 40 years or over. This facility utilizes a reminder system to ensure that all patients receive reminder letters, and/or direct phone calls for appointments. This includes reminders for routine scr eening mammograms, diagnostic mammograms, or other Breast Imaging Interventions when appropriate. Th is patient will be placed in the appropriate reminder system. The [employer] (ACR) has developed recommendations for screening MRI of the breast s in certain patient populations, to be used in conjunction with mammography. Breast MRI surveillanc e may be appropriate for women with more than 20% lifetime risk of developing breast cancer as deter mined by genetic testing, significant family history of the disease, or history of mantle radiation f or Hodgkins Disease. ACR Practice Guidelines 2008. DBT Technology DBT is a type of tomographic mammography. With conventional mammography, overlapping breast tissue ma y make lesions difficult to detect, even with good compression. DBT uses an x-ray tube that rotates a round the breast, taking images at different angles. These images are then combined to create thin sl ices of the breast that the radiologist can view as a 3D reconstruction. The Hologic unit can perform full-field digital mammograms (2D imaging); or DBT (3D imaging); or both, in a combination mode that quickly performs both the mammogram and the tomosynthesis scan while the breast is still compressed. PQRS 6045F: Fluoroscopic imaging is not utilized for breast tomosynthesis. TECHNICAL DOCUMENTATION: FINDING NUMBER: (1) ASSESSMENT: (1) JOB ID: [id number] [employer]- All Rights Reserved
== END ==
LOC: WI 09:32
PROVIDERS: ATTEND Family Medicine
DX: Z12.31 Encounter for screening mammogram for malignant neoplasm of breast (principal); M81.0 Age-related osteoporosis without current pathological fracture
CPT/HCPCS: 77063; G0202; 77067

== ENCOUNTER → 2017-07-28 | Outpatient (CLI) | payer MEDICARE, MEDICAID ==
[2017-07-28 15:15] LABS: PROTHROMBIN TIME 13.9 SEC (11.4-15.4)
[2017-07-28 15:16] LABS: PARTIAL THROMBOPLASTIN TIME 33.1 SEC (23.5-35.8)
== END ==
LOC: OD 14:33
PROVIDERS: ATTEND Physician Assistant
DX: Z51.81 Encounter for therapeutic drug level monitoring (principal); Z79.01 Long term (current) use of anticoagulants
CPT/HCPCS: 36415; 85610; 85730

== ENCOUNTER → 2017-08-25 | Outpatient (CLI) | payer MEDICARE, MEDICAID ==
[2017-08-25 14:04] LABS: ABSOLUTE EOSINOPHILS # (AUTO) 0.2 10^3/uL (0.0-0.6); ABSOLUTE LYMPHOCYTES (AUTO) 1.9 10^3/uL (0.5-4.7); ABSOLUTE MONOCYTES (AUTO) 0.5 10^3/uL (0.1-1.4); ABSOLUTE NEUT (AUTO) 2.7 10^3/uL (1.7-8.2); BASOPHILS % (AUTO) 0.5 % (0-2); EOSINOPHILS % (AUTO) 3.6 % (0-6); HEMATOCRIT 33.6 % (36.0-47.0); HEMOGLOBIN 11.3 g/dL (12.0-15.5); LYMPHOCYTES % (AUTO) 36.3 % (13-45); MEAN CORPUSCULAR HEMOGLOBIN 27.6 pg (27.0-33.4); MEAN CORPUSCULAR HGB CONC 33.5 g/dL (32.0-36.0); MEAN CORPUSCULAR VOLUME 83 fl (80-97); MONOCYTES % (AUTO) 8.7 % (3-13); PLATELET COUNT 202 10^3/uL (150-450); RED BLOOD COUNT 4.08 10^6/uL (3.72-5.28); SEGMENTED NEUTROPHILS % (AUTO) 50.9 % (42-78); TOTAL CELLS COUNTED % (AUTO) 100 %; WHITE BLOOD COUNT 5.3 10^3/uL (4.0-10.5)
[2017-08-25 14:11] LABS: INTERNATIONAL RATION (INR) 2.63; PROTHROMBIN TIME 29.4 SEC (11.4-15.4)
[2017-08-25 14:16] LABS: ALANINE AMINOTRANSFERASE 31 U/L (9-52); ALBUMIN 3.7 g/dL (3.5-5.0); ALKALINE PHOSPHATASE 63 U/L (38-126); ANION GAP 9 (5-19); ASPARTATE AMINO TRANSFERASE 20 U/L (14-36); BILIRUBIN,DIRECT 0.3 mg/dL (0.0-0.4); BILIRUBIN,TOTAL 0.4 mg/dL (0.2-1.3); BLOOD UREA NITROGEN 22 mg/dL (7-20); CALCIUM 9.7 mg/dL (8.4-10.2); CARBON DIOXIDE 27 mmol/L (22-30); CHLORIDE 101 mmol/L (98-107); GLUCOSE 120 mg/dL (75-110); POTASSIUM 4.3 mmol/L (3.6-5.0); SODIUM 136.8 mmol/L (137-145); TOTAL PROTEIN 5.9 g/dL (6.3-8.2)
== END ==
LOC: OD 12:47
PROVIDERS: ATTEND Family Medicine
DX: I48.0 Paroxysmal atrial fibrillation (principal); Z79.01 Long term (current) use of anticoagulants; R73.01 Impaired fasting glucose; Z79.899 Other long term (current) drug therapy
CPT/HCPCS: 36415; 80053; 83036; 85025; 85610

== ENCOUNTER → 2017-09-22 | Outpatient (CLI) | payer MEDICARE, MEDICAID ==
[2017-09-22 15:40] LABS: INTERNATIONAL RATION (INR) 1.05; PARTIAL THROMBOPLASTIN TIME 28.9 SEC (23.5-35.8); PROTHROMBIN TIME 14.4 SEC (11.4-15.4)
== END ==
LOC: OD 14:59
PROVIDERS: ATTEND Pain Medicine Interventional Pain Medicine
DX: R79.1 Abnormal coagulation profile (principal); Z79.01 Long term (current) use of anticoagulants
CPT/HCPCS: 36415; 85610; 85730

== ENCOUNTER → 2017-10-13 | Outpatient (CLI) | payer MEDICARE, MEDICAID ==
[2017-10-13 15:21] LABS: INTERNATIONAL RATION (INR) 1.87; PROTHROMBIN TIME 22.6 SEC (11.4-15.4)
== END ==
LOC: OD 14:27
PROVIDERS: ATTEND Specialist
DX: I48.0 Paroxysmal atrial fibrillation (principal); Z79.01 Long term (current) use of anticoagulants
CPT/HCPCS: 36415; 85610

== ENCOUNTER → 2017-10-21 | Outpatient (CLI) | payer MEDICARE, MEDICAID ==
[2017-10-21 14:48] LABS: INTERNATIONAL RATION (INR) 2.75; PROTHROMBIN TIME 30.5 SEC (11.4-15.4)
== END ==
LOC: OD 13:27
PROVIDERS: ATTEND Specialist
DX: I48.0 Paroxysmal atrial fibrillation (principal); Z79.01 Long term (current) use of anticoagulants
CPT/HCPCS: 36415; 85610

== ENCOUNTER 2017-11-03 21:07 | Inpatient (IN) | payer MEDICARE, MEDICAID ==
[2017-11-03] MEDS ORDERED: ONDANSETRON HCL INJ/PF 4 MG/2 ML SDV IV ONE (21:37)
[2017-11-03] MEDS ORDERED: NORMAL SALINE 1000 ML 500 ML IV ONE (21:37)
[2017-11-03] MEDS ORDERED: ALBUTEROL SULFATE 0.083% NEB 2.5 MG/3 ML AMPUL NEB ONE (21:37)
[2017-11-03 21:42] LABS: ABSOLUTE LYMPHOCYTES (AUTO) 2.1 10^3/uL (0.5-4.7); ABSOLUTE MONOCYTES (AUTO) 0.9 10^3/uL (0.1-1.4); ABSOLUTE NEUT (AUTO) 8.7 10^3/uL (1.7-8.2); BASOPHILS % (AUTO) 0.3 % (0-2); EOSINOPHILS % (AUTO) 0.1 % (0-6); HEMATOCRIT 37.4 % (36.0-47.0); HEMOGLOBIN 12.4 g/dL (12.0-15.5); LYMPHOCYTES % (AUTO) 17.9 % (13-45); MEAN CORPUSCULAR HGB CONC 33.2 g/dL (32.0-36.0); MEAN CORPUSCULAR VOLUME 85 fl (80-97); MONOCYTES % (AUTO) 7.3 % (3-13); PLATELET COUNT 252 10^3/uL (150-450); RED BLOOD COUNT 4.42 10^6/uL (3.72-5.28); RED CELL DISTRIBUTION WIDTH 17.2 % (11.5-14.0); SEGMENTED NEUTROPHILS % (AUTO) 74.4 % (42-78); TOTAL CELLS COUNTED % (AUTO) 100 %; WHITE BLOOD COUNT 11.7 10^3/uL (4.0-10.5)
--- NOTE | 2017-11-03 21:44 | ER Document Report ---
ED General - General Chief Complaint: Respiratory Distress Stated Complaint: RESPIRATORY DISTRESS Time Seen by Provider: 11/03/17 21:35 Cannot obtain history due to: Unstable vital signs Notes: Patient is an 82 year old female with a past medical history of COPD and CHF who presents in acute respiratory distress. History is somewhat limited secondary to the patient's work of breathing as well as somnolence. Per EMS the patient was found to be saturating 71% on room air when they first arrived. She had coarse wheezing in all lung finley and was in overt respiratory distress. She was placed on CPAP with continuous in-line nebulizers and transported to the hospital. Patient herself has difficulty providing any additional meaningful history at time of initial assessment. Family that arrives to the bedside does state the patient has been sick for the past 24 hours with associated nausea, vomiting and diarrhea as well as cough and apparent shortness of breath. They state that the patient did not want EMS to be contacted but she appeared to be coming increasingly lethargic and garcia so they contacted EMS. TRAVEL OUTSIDE OF THE [place] IN LAST 30 DAYS: No - Related Data Allergies/Adverse Reactions: Penicillins Allergy (Mild, Verified 11/03/17 21:59) Hives celecoxib Allergy (Verified 11/03/17 21:59) Past Medical History - General Information source: Patient, Relative, Emergency Med Personnel Cannot obtain history due to: Unstable vital signs - Social History Smoking Status: Former Smoker Frequency of alcohol use: None Drug Abuse: None Lives with: Family Family History: Reviewed & Not Pertinent - Past Medical History Cardiac Medical History: Reports: Hx Coronary Artery Disease, Hx Hypertension Denies: Hx Heart Attack Pulmonary Medical History: Reports: Hx Asthma, Hx COPD Denies: Hx Bronchitis, Hx Pneumonia Neurological Medical History: Denies: Hx Cerebrovascular Accident, Hx Seizures Renal/ Medical History: Denies: Hx Peritoneal Dialysis Musculoskeltal Medical History: Reports Hx Arthritis Past Surgical History: Reports: Hx Cardiac Surgery - paced, Hx Orthopedic Surgery - cervical fusion, Hx Pacemaker - Immunizations Hx Diphtheria, Pertussis, Tetanus Vaccination: No Hx Pneumococcal Vaccination: 07/21/07 Review of Systems - Review of Systems Notes: Constitutional: Positive for fever. HENT: Negative for sore throat. Eyes: Negative for visual changes. Cardiovascular: Negative for chest pain. Respiratory: Positive for shortness of breath. Gastrointestinal: Positive for vomiting and diarrhea Genitourinary: Negative for dysuria. Musculoskeletal: Negative for back pain. Skin: Negative for rash. Neurological: Negative for headaches, weakness or numbness. 10 point ROS negative except as marked above and in HPI. Physical Exam - Vital signs Vitals: Temp Pulse Ox 99.7 F 92 11/03/17 21:10 11/03/17 21:10 Interpretation: Hypoxic, Tachypneic Notes: PHYSICAL EXAMINATION: GENERAL: Appears unwell, in moderate respiratory distress, somewhat somnolent HEAD: Atraumatic, normocephalic. EYES: Pupils equal round and reactive to light, extraocular movements intact, sclera anicteric, conjunctiva are normal. ENT: nares patent, oropharynx clear without exudates. Moderately dry mucous membranes. NECK: Normal range of motion, supple without lymphadenopathy LUNGS: Breathing approximately 28 times per minute, scattered wheezing in all lung finley, good air movement on BiPAP. HEART: Regular rate and rhythm without murmurs ABDOMEN: Soft, nontender, normoactive bowel sounds. No guarding, no rebound. No masses appreciated. EXTREMITIES: Normal range of motion, trace edema in the bilateral lower extremities that is equal and symmetric NEUROLOGICAL: No focal neurological deficits. Moves all extremities spontaneously and on command. PSYCH: Somewhat somnolent SKIN: Warm, Dry, normal turgor, no rashes or lesions noted. Course - Re-evaluation Re-evalutation: 11/03/17 21:42 Please note initial documentation is delayed secondary to the acuity of this patient's presentation. In summary, patient presents in respiratory distress, tachypnea, somewhat lethargic but does awaken and answer questions appropriately. Patient was apparently saturating 71% on room air when she was found by EMS and does not usually use supplemental oxygenation. Upon arrival a pleural ultrasound was performed that did not show any evidence of pulmonary edema. IVC is collapsible. No evidence of a pericardial effusion. Stat portable chest x-ray was obtained. 2 points of IV access were established. Patient has received 125 mgof Solu-Medrol prior to arrival. She has also been on continuous nebulizers via bipap and we will continue here. Patient has also had nausea, vomiting, and diarrhea for the past 1 week. She does appear clinically dehydrated on examination. No evidence of volume overload. Will provide 500 cc of fluid IV. Will also begin 2 g magnesium rapidly infused over 20 minutes for respiratory protocol. Will reassess recently. 11/03/17 21:51 Chest x-ray does show a right middle and lower lobe pneumonia. IV levofloxacin has been started. Blood cultures will likewise be obtained. Patient's work of breathing remains much improved on BiPAP. Will continue to reassess frequently. 11/03/17 22:14 Patient continues to be overall much improved on BiPAP, heart rate has stabilized into the low 60s paced rhythm, saturating 96-97% on 60% FiO2 on BiPAP. Continues him on nebulizers are ongoing. I have discussed the results of her studies with the patient and her family at length and they are agreeable to admission. I will contact Dr. Jean 11/03/17 23:21 Patient's work of breathing continues to be improved. Dr. Jean has accepted the patient for admission. - Vital Signs Vital signs: Temp Pulse Resp BP Pulse Ox 98.2 F 64 18 145/54 H 98 11/04/17 01:22 11/04/17 02:27 11/04/17 02:27 11/04/17 01:22 11/04/17 02:27 - Laboratory Result Diagrams: 11/03/17 21:14 11/03/17 21:14 Laboratory results interpreted by me: 11/03/17 11/03/17 11/03/17 21:14 21:14 21:14 WBC 11.7 H RDW 17.2 H Absolute Neutrophils 8.7 H Sodium 135.2 L Glucose 176 H NT-Pro-B Natriuret Pep 6390 H - Diagnostic Test Radiology reviewed: Image reviewed, Reports reviewed Radiology results interpreted by me: 11/03/17 23:22 Chest x-ray: Right lower lobe pneumonia - EKG Interpretation by Me Additional EKG results interpreted by me: 11/03/17 23:22 Atrially p[address] rhythm. No ST elevations or depressions. QTC 420. Rate 60. Critical Care Note - Critical Care Note Total time excluding time spent on procedures (mins): 45 Comments: Critical care time spent obtaining history from patient or surrogate, discussions with consultants, development of treatment plan with patient or surrogate, evaluation of patient's response to treatment, examination of patient , ordering and performing treatments and interventions, ordering and review of laboratory studies, re-evaluation of patient's condition, ordering and review of radiographic studies and review of old charts Discharge - Discharge Clinical Impression: Respiratory distress, COPD exacerbation Right lower lobe pneumonia Qualifiers: Pneumonia type: due to unspecified organism Qualified Code(s): J18.1 - Lobar pneumonia, unspecified organism Sepsis Qualifiers: Sepsis type: sepsis due to unspecified organism Qualified Code(s): A41.9 - Sepsis, unspecified organism Condition: Fair Disposition: ADMITTED INPATIENT Admitting Provider: Hospitalist Unit Admitted: [facility]
--- NOTE | 2017-11-03 21:45 | RADIOLOGY REPORT (SQ) ---
EXAM DESCRIPTION: CHEST SINGLE VIEW COMPLETED DATE/TIME: 11/03/2017 9:28 pm REASON FOR STUDY: Shortness of breath COMPARISON: 02/11/2017 EXAM PARAMETERS: NUMBER OF VIEWS: One view. TECHNIQUE: Single frontal radiographic view of the chest acquired. RADIATION DOSE: NA LIMITATIONS: None. FINDINGS: LUNGS AND PLEURA: Fairly dense opacification is present in the right mid and lower lung. MEDIASTINUM AND HILAR STRUCTURES: No masses. Contour normal. HEART AND VASCULAR STRUCTURES: Heart normal in size. Normal vasculature. BONES: No acute findings. HARDWARE: Pacemaker. OTHER: No other significant finding. IMPRESSION: Right lower lobe or middle lobe pneumonia. TECHNICAL DOCUMENTATION: JOB ID: [id number] [employer]- All Rights Reserved Reading location - IP/workstation name: [email or web address]
[2017-11-03 21:46] LABS: VENOUS BLOOD HCO3 25.2 mmol/L (20-32); VENOUS BLOOD PCO2 42.8 mmHg (35-63); VENOUS BLOOD PH 7.39 (7.30-7.42)
[2017-11-03] MEDS: MAGNESIUM SULFATE/D5W 1 GM/100 ML RTUPB IV SCH ×2 (21:47→22:17)
[2017-11-03] MEDS ORDERED: LEVOFLOXACIN 750 MG/D5W RTU 750 MG/150 ML RTUPB IV ONE (21:50)
[2017-11-03 21:51] LABS: ALANINE AMINOTRANSFERASE 32 U/L (9-52); ALBUMIN 3.9 g/dL (3.5-5.0); ALKALINE PHOSPHATASE 81 U/L (38-126); ANION GAP 9 (5-19); ASPARTATE AMINO TRANSFERASE 22 U/L (14-36); BILIRUBIN,DIRECT 0.1 mg/dL (0.0-0.4); BILIRUBIN,TOTAL 1.1 mg/dL (0.2-1.3); BLOOD UREA NITROGEN 20 mg/dL (7-20); CALCIUM 9.3 mg/dL (8.4-10.2); CARBON DIOXIDE 28 mmol/L (22-30); CHLORIDE 98 mmol/L (98-107); GLUCOSE 176 mg/dL (75-110); LIPASE 27.2 U/L (23-300); POTASSIUM 4.1 mmol/L (3.6-5.0); SODIUM 135.2 mmol/L (137-145); TOTAL PROTEIN 6.6 g/dL (6.3-8.2)
[2017-11-03 22:03] LABS: TROPONIN I 0.023 ng/mL
[2017-11-03] MEDS ORDERED: DEXTROSE 50%-WATER 25 GM/50 ML DISP.SYRIN IV PRN ×2 (23:47)
[2017-11-03] MEDS ORDERED: INSULIN LISPRO 100 UNIT/ML 3 ML VIAL SUBCUT PRN (23:47)
[2017-11-03] MEDS ORDERED: DEXTROSE 40% GEL 15 GM TUBE PO PRN ×2 (23:47)
[2017-11-03] MEDS ORDERED: GLUCAGON,HUMAN RECOMB 1 MG INJ IM PRN (23:47)
[2017-11-04] MEDS ORDERED: METOPROLOL TARTRATE 100 MG TABLET PO ONE (00:15)
[2017-11-04] MEDS: LEVALBUTEROL HCL NEB 1.25 MG/3 ML AMPUL NEB SCH ×4 (02:09→20:02)
[2017-11-04] MEDS: IPRATROPIUM BROMIDE 0.02% NEB 0.5 MG/2.5 ML AMPUL NEB SCH ×4 (02:10→20:02)
--- NOTE | 2017-11-04 06:03 | PDOC H&P ---
History of Present Illness Admission Date/PCP: 11/03/17 23:50 Patient complains of: Shortness of breath History of Present Illness: SULLY ESCALANTE is a 82 year old female with a past medical history of COPD, chronic bronchitis, coronary artery disease status post permanent pacemaker, congestive heart failure and an ejection fraction. Patient presents with 7 days of nausea vomiting diarrhea, and nonproductive cough. Family calls EMS for exceptional shortness of breath 24 hours ago but patient declined EMS services. Patient progressive symptoms with lethargy and oxygen saturations in the 70s she was brought to the emergency room where she receives continuous albuterol and Atrovent, ketamine and BiPAP. Workup reveals leukocytosis, BNP of 6000, chest x-ray with right middle lobe infiltrate. She started on empiric antibiotics and for the hospitalist for admission. Patient remains in respiratory distress on BiPAP unable to provide history denies pain. Past Medical History Cardiac Medical History: Reports: Coronary Artery Disease, Hyperlipidema, Hypertension Denies: Myocardial Infarction Pulmonary Medical History: Reports: Asthma, Chronic Obstructive Pulmonary Disease (COPD) Denies: Bronchitis, Pneumonia Neurological Medical History: Denies: Seizures GI Medical History: Reports: Gastroesophageal Reflux Disease Musculoskeltal Medical History: Reports: Arthritis Hematology: Denies: Anemia Past Surgical History Past Surgical History: Reports: Orthopedic Surgery - cervical fusion, Pacemaker Social History Information Source: Emergency Med Personnel, [facility] Records Lives with: Family Smoking Status: Former Smoker Frequency of Alcohol Use: None - Advance Directive Resuscitation Status: Full Code Family History Family History: Other - Unobtainable Parental Family History Reviewed: Yes - Unobtainable Children Family History Reviewed: Yes - Unobtainable Sibling(s) Family History Reviewed.: Yes - Unobtainable Medication/Allergy Home Medications: Amlodipine Besylate [Norvasc 10 mg Tablet] 10 mg PO DAILY 08/05/12 Aspirin [Aspirin 81 mg Chewable Tablet] 81 mg PO DAILY 08/05/12 Atorvastatin Calcium [Lipitor 40 mg Tablet] 40 mg PO QHS 08/05/12 Cholecalciferol (Vitamin D3) [Vitamin D3] 1,000 unit PO DAILY 08/05/12 Clonidine HCl [Catapres 0.1 mg Tablet] 0.1 mg PO TID 08/05/12 Cyanocobalamin (Vitamin B-12) [Vitamin B-12] 2,000 mcg PO DAILY 08/05/12 Docusate Sodium [Colace 100 mg Capsule] 100 mg PO DAILY 08/05/12 Lisinopril [Prinivil 40 mg Tablet] 40 mg PO BID 08/05/12 Metoprolol Tartrate [Lopressor 100 Mg Tablet] 100 mg PO BID 08/05/12 Cameron-3 Fatty Acids [Fish Oil] 300 mg PO BID 08/05/12 Omeprazole [Prilosec 40 mg Capsule] 40 mg PO DAILY 08/05/12 Sotalol HCl [Betapace] 120 mg PO BID 08/05/12 Tiotropium [place] [Spiriva Handihaler 18 mcg/dose (30 Dose)] 1 cap IH DAILY Valsartan [Diovan] 320 mg PO DAILY 08/05/12 Warfarin Sodium [Coumadin 2 Mg Tablet] 2 mg PO DAILY 08/05/12 Diphenhydramine HCl [Benadryl 50 mg Capsule] 1 cap PO Q6 PRN 5 Days capsule Epinephrine [Epipen 2-James] 0.3 mg IM ASDIR PRN #1 pkg 11/06/14 Famotidine [Pepcid 20 mg Tablet] 20 mg PO DAILY 5 Days tablet 11/06/14 Pregabalin [Lyrica 75 mg Capsule] 1 tab PO TID 05/28/16 Famotidine [Pepcid 20 mg Tablet] 20 mg PO BID #20 tablet 10/10/16 Allergies/Adverse Reactions: Penicillins Allergy (Mild, Verified 11/03/17 21:59) Hives celecoxib Allergy (Verified 11/03/17 21:59) Review of Systems ROS unobtainable: Due to mental status - Respiratory distress on BiPAP Physical Exam Vital Signs: Temp Pulse Resp BP Pulse Ox 98.3 F 66 15 158/55 H 97 11/04/17 03:53 11/04/17 03:53 11/04/17 04:20 11/04/17 03:53 11/04/17 04:20 Intake & Output 11/02/17 11/03/17 11/04/17 11:59 11:59 11:59 Weight 76.6 kg General appearance: PRESENT: hard of hearing, severe distress, well-developed, well-nourished. ABSENT: no acute distress Head exam: PRESENT: atraumatic, normocephalic Eye exam: PRESENT: conjunctiva pink, EOMI, PERRLA. ABSENT: scleral icterus Ear exam: PRESENT: normal external ear exam Mouth exam: PRESENT: dry mucosa, tongue midline Neck exam: ABSENT: carotid bruit, JVD, lymphadenopathy, thyromegaly Respiratory exam: PRESENT: accessory muscle use, crackles, decreased breath sounds, prolonged expiratory phas, retraction, symmetrical, tachypnea. ABSENT: chest wall tenderness, clear to auscultation [place], stridor Cardiovascular exam: PRESENT: RRR. ABSENT: diastolic murmur, rubs, systolic murmur Pulses: PRESENT: normal dorsalis pedis pul Vascular exam: PRESENT: normal capillary refill GI/Abdominal exam: PRESENT: normal bowel sounds, soft. ABSENT: distended, guarding, mass, organolmegaly, rebound, tenderness Rectal exam: PRESENT: deferred Extremities exam: PRESENT: full ROM. ABSENT: calf tenderness, clubbing, pedal edema Neurological exam: PRESENT: alert, awake, oriented to person, CN II-XII grossly intact Psychiatric exam: PRESENT: appropriate affect, normal mood. ABSENT: homicidal ideation, suicidal ideation Skin exam: PRESENT: dry, intact, warm. ABSENT: cyanosis, rash Results Impressions: Chest X-Ray 11/03/17 21:15 IMPRESSION: Right lower lobe or middle lobe pneumonia. Assessment & Plan - Diagnosis (1) COPD exacerbation Is this a current diagnosis for this admission?: Yes Plan: Telemetry bed admission, flutter valve, incentive spirometry, albuterol and Atrovent, steroids. Supplemental oxygen (2) Respiratory distress Is this a current diagnosis for this admission?: Yes Plan: Secondary to pneumonia, follow-up imaging as needed, continue BiPAP in addition to #1 (3) Right lower lobe pneumonia Qualifiers: Pneumonia type: due to unspecified organism Qualified Code(s): J18.1 - Lobar pneumonia, unspecified organism Is this a current diagnosis for this admission?: Yes Plan: No history of aspiration, follow-up pneumonia care set, follow-up CBC and blood culture (4) Sepsis Qualifiers: Sepsis type: sepsis due to unspecified organism Qualified Code(s): A41.9 - Sepsis, unspecified organism Is this a current diagnosis for this admission?: Yes Plan: Secondary to pneumonia, follow-up CBC blood culture, supportive care pressors as needed - Time Time Spent: 50 to 70 Minutes - Inpatient Certification Medical Necessity: Need Close Monitoring Due to Risk of Patient Decompensation
[2017-11-04 06:30] LABS: ABSOLUTE LYMPHOCYTES (AUTO) 0.7 10^3/uL (0.5-4.7); ABSOLUTE MONOCYTES (AUTO) 0.2 10^3/uL (0.1-1.4); ABSOLUTE NEUT (AUTO) 6.5 10^3/uL (1.7-8.2); HEMATOCRIT 32.3 % (36.0-47.0); HEMOGLOBIN 10.8 g/dL (12.0-15.5); LYMPHOCYTES % (AUTO) 9.9 % (13-45); MEAN CORPUSCULAR HGB CONC 33.3 g/dL (32.0-36.0); MEAN CORPUSCULAR VOLUME 84 fl (80-97); MONOCYTES % (AUTO) 2.2 % (3-13); PLATELET COUNT 180 10^3/uL (150-450); RED BLOOD COUNT 3.84 10^6/uL (3.72-5.28); RED CELL DISTRIBUTION WIDTH 17.2 % (11.5-14.0); SEGMENTED NEUTROPHILS % (AUTO) 87.9 % (42-78); TOTAL CELLS COUNTED % (AUTO) 100 %; WHITE BLOOD COUNT 7.4 10^3/uL (4.0-10.5)
[2017-11-04 06:39] LABS: INTERNATIONAL RATION (INR) 2.34; PROTHROMBIN TIME 26.8 SEC (11.4-15.4)
[2017-11-04 06:51] LABS: ANION GAP 9 (5-19); BLOOD UREA NITROGEN 23 mg/dL (7-20); CALCIUM 8.7 mg/dL (8.4-10.2); CARBON DIOXIDE 27 mmol/L (22-30); CHLORIDE 102 mmol/L (98-107); GLUCOSE 148 mg/dL (75-110); POTASSIUM 4.2 mmol/L (3.6-5.0); SODIUM 137.9 mmol/L (137-145)
--- NOTE | 2017-11-04 09:25 | EKG REPORT ---
SEVERITY:- ABNORMAL ECG - ATRIAL-PACED RHYTHM MINIMAL ST DEPRESSION, LATERAL LEADS : Confirmed by: Carter Rodriguez 04-Nov-2017 09:24:26
[2017-11-04] MEDS ORDERED: CLONIDINE HCL 0.1 MG TABLET PO SCH (10:00)
[2017-11-04] MEDS ORDERED: METOPROLOL TARTRATE 100 MG TABLET PO SCH (10:00)
[2017-11-04] MEDS ORDERED: COPPER PO SCH (11:45)
[2017-11-04] MEDS ORDERED: (PENDING PHARMACY ID) (Valsartan [Diovan] 320 MG) PO SCH (11:45)
[2017-11-04] MEDS ORDERED: SOTALOL HCL 120 MG PO SCH (11:45)
[2017-11-04] MEDS ORDERED: ZINC PO SCH (11:45)
[2017-11-04] MEDS ORDERED: LUT PO SCH (11:45)
[2017-11-04] MEDS ORDERED: VIT C PO SCH (11:45)
[2017-11-04] MEDS ORDERED: VIT E AC PO SCH (11:45)
[2017-11-04] MEDS ORDERED: [UNRECOGNIZED DRUG - OTHER] PO SCH (11:45)
[2017-11-04] MEDS: AMLODIPINE BESYLATE 10 MG TABLET PO SCH (11:50)
[2017-11-04] MEDS: DOCUSATE SODIUM 100 MG CAPSULE PO SCH (11:50)
[2017-11-04] MEDS: ASPIRIN 81 MG TABLET, CHEWABLE PO SCH (11:50)
[2017-11-04] MEDS: FAMOTIDINE 20 MG TABLET PO SCH ×2 (11:51→17:30)
[2017-11-04] MEDS ORDERED: LISINOPRIL 10 MG TABLET PO ONE (14:00)
[2017-11-04] MEDS ORDERED: GABAPENTIN 300 MG CAPSULE PO ONE (14:00)
[2017-11-04] MEDS ORDERED: CHOLECALCIFEROL (D3) 1,000 UNIT TABLET PO ONE (14:00)
[2017-11-04] MEDS ORDERED: VALSARTAN 160 MG TABLET PO ONE (14:00)
[2017-11-04] MEDS ORDERED: TIOTROPIUM BROMIDE DPI 5 CAP/KIT (18 MCG/CAP) IH ONE (14:00)
[2017-11-04] MEDS ORDERED: OMEGA-3 ACID ETHYL ESTERS 1 GM CAPSULE PO ONE (14:00)
[2017-11-04] MEDS ORDERED: CYANOCOBALAMIN (VITAMIN B-12) 1,000 MCG TABLET PO ONE (14:00)
--- NOTE | 2017-11-04 16:06 | PDOC PROGRESS REPORT ---
Subjective Progress Note for:: 11/04/17 Subjective:: Patient is an 82-year-old female with a known history of COPD, CHF unknown ejection fraction was admitted with acute hypoxemic respiratory failure Patient was diagnosed of pneumonia and COPD acute exacerbation on admission She was placed on BiPAP support antibiotics , nebs were initiated Overnight patient's condition improved greatly; this morning she was found extremely comfortable and could be taken off BiPAP and placed on nasal cannula Reason For Visit: CHF COPD AND EXACERBATION, PNEUMONIA Physical Exam Vital Signs: Temp Pulse Resp BP Pulse Ox 97.7 F 60 19 148/53 H 98 11/04/17 11:35 11/04/17 14:15 11/04/17 14:15 11/04/17 11:35 11/04/17 14:15 Intake & Output 11/03/17 11/04/17 11/05/17 00:59 00:59 00:59 Intake Total 210 Balance 210 Weight 76.6 kg General appearance: PRESENT: no acute distress, well-developed, well-nourished Head exam: PRESENT: atraumatic, normocephalic Eye exam: PRESENT: conjunctiva pink, EOMI, PERRLA. ABSENT: scleral icterus Neck exam: ABSENT: carotid bruit, JVD, lymphadenopathy, thyromegaly Respiratory exam: PRESENT: decreased breath sounds. ABSENT: accessory muscle use, rales, wheezes Cardiovascular exam: PRESENT: systolic murmur - 3/6, other - Regular rhythm. ABSENT: gallop, rubs Pulses: PRESENT: normal dorsalis pedis pul Vascular exam: PRESENT: normal capillary refill GI/Abdominal exam: PRESENT: normal bowel sounds, soft. ABSENT: distended, guarding, mass, organolmegaly, rebound, tenderness Musculoskeletal exam: ABSENT: ambulatory, deformity, dislocation, full ROM, normal inspection, tenderness, other Neurological exam: PRESENT: alert, awake, oriented to person, oriented to place , oriented to time, oriented to situation, CN II-XII grossly intact. ABSENT: motor sensory deficit Psychiatric exam: PRESENT: appropriate affect, normal mood Results Laboratory Results: 11/04/17 05:39 11/04/17 05:39 11/04/17 11/04/17 05:39 05:39 WBC 7.4 RBC 3.84 Hgb 10.8 L Hct 32.3 L MCV 84 MCH 28.0 MCHC 33.3 RDW 17.2 H Plt Count 180 Seg Neutrophils % 87.9 H Lymphocytes % 9.9 L Monocytes % 2.2 L Eosinophils % 0.0 Basophils % 0.0 Absolute Neutrophils 6.5 Absolute Lymphocytes 0.7 Absolute Monocytes 0.2 Absolute Eosinophils 0.0 Absolute Basophils 0.0 Sodium 137.9 Potassium 4.2 Chloride 102 Carbon Dioxide 27 Anion Gap 9 BUN 23 H Creatinine 0.69 Est GFR ( Amer) > 60 Est GFR (Non-Af Amer) > 60 Glucose 148 H Calcium 8.7 11/04/17 14:36 Troponin I 0.016 Impressions: Chest X-Ray 11/03/17 21:15 IMPRESSION: Right lower lobe or middle lobe pneumonia. Assessment & Plan - Diagnosis (1) COPD exacerbation Is this a current diagnosis for this admission?: Yes Plan: continue nebs , O2 supplementation (2) Right lower lobe pneumonia Qualifiers: Pneumonia type: due to unspecified organism Qualified Code(s): J18.1 - Lobar pneumonia, unspecified organism Is this a current diagnosis for this admission?: Yes Plan: Chest x-ray shows a very dense infiltrate in the right middle lung right lower lobe CT of the chest will be performed to evaluate further The patient's antibiotics were switched to doxycycline and ceftriaxone as Levaquin interferes with both Coumadin and sotalol (3) History of CHF (congestive heart failure) Is this a current diagnosis for this admission?: Yes Plan: BNP is elevated but there is no suggestion by on the chest x-ray of fluid overload We will obtain an echocardiogram reevaluate patient's needs (4) Chronic anticoagulation Is this a current diagnosis for this admission?: Yes Plan: With Coumadin Patient is adequately anticoagulated with an INR over 2 Continue her present management - Time Time Spent with patient: 25-34 minutes
[2017-11-04] MEDS: DOXYCYCLINE HYCLATE 100 MG TABLET PO SCH (17:29)
[2017-11-04] MEDS: WARFARIN SODIUM 2 MG TABLET PO SCH (17:30)
[2017-11-04] MEDS ORDERED: (PENDING PHARMACY ID) (Warfarin Sodium 2 MG) PO SCH (18:00)
[2017-11-04] MEDS: CEFTRIAXONE SODIUM 1,000 MG in NORMAL SALINE 100 ML IV SCH (18:42)
[2017-11-04] MEDS: METOPROLOL TARTRATE 100 MG TABLET PO SCH (21:29)
[2017-11-04] MEDS: ATORVASTATIN CALCIUM 40 MG TABLET PO SCH (21:30)
[2017-11-04] MEDS: HEPARIN SOD (PORCINE) 5,000 UNIT/ML 1 ML SYRINGE SUBCUT SCH (21:31)
--- NOTE | 2017-11-04 21:58 | RADIOLOGY REPORT (SQ) ---
EXAM DESCRIPTION: CT CHEST WITHOUT COMPLETED DATE/TIME: 11/04/2017 8:00 pm REASON FOR STUDY: dense infiltrate rt lung ? mass COMPARISON: Chest x-ray 11/03/2017 TECHNIQUE: CT scan performed of the chest without intravenous contrast. Images reviewed with lung, soft tissue and bone windows. Reconstructed coronal and sagittal MPR images reviewed. All images st ored on PACS. All CT scanners at this facility use dose modulation, iterative reconstruction, and/or weight based d osing when appropriate to reduce radiation dose to as low as reasonably achievable (ALARA). [facility]: Dose Right [facility]: CareDose [facility]: Dose Right [facility]: Teradose 4D [facility]: Smart Technologies RADIATION DOSE: CT Rad equipment meets quality standard of care and radiation dose reduction techniq ues were employed. CTDIvol: 9.1 mGy. DLP: 361 mGy-cm. mGy. LIMITATIONS: No technical limitations. FINDINGS: LUNGS AND PLEURA: The pleural/parenchymal scarring in the apices. Moderate right pleural effusion. Atelectasis in the right lower lobe. Masslike opacification in the right lower lobe with a questionable 15 mm nodule on image 31 with 2 adjacent smaller nodules. . HILAR AND MEDIASTINAL STRUCTURES: There is the appearance of soft tissue around the right hilum that becomes confluent with the lower lobe opacification. Tracheal and bronchial calcifications are exten sive. HEART AND VASCULAR STRUCTURES: No aneurysm. No pericardial effusion. UPPER ABDOMEN: No significant findings. Limited exam. THYROID AND OTHER SOFT TISSUES: No masses. No adenopathy. BONES: Kyphoplasty changes are present in the upper lumbar spine. HARDWARE: None in the chest. OTHER: No other significant findings. IMPRESSION: 1. Right hilar mass with the appearance of a 15 mm right lower lobe mass and 2 adjacent smaller nodules. There is some degree of atelectasis in the right lower lobe. There is a moderate right pleural effusion. 2. Tracheobronchial calcifications. These can be seen with long-term warfarin therapy. TECHNICAL DOCUMENTATION: JOB ID: [id number] Quality ID # [id number]: Final reports with documentation of one or more dose reduction techniques (e.g., Au tomated exposure control, adjustment of the mA and/or kV according to patient size, use of iterative reconstruction technique) 2010 [employer]- All Rights Reserved Reading location - IP/workstation name: [email or web address]
[2017-11-04] MEDS ORDERED: LEVOFLOXACIN 750 MG/D5W RTU 750 MG/150 ML RTUPB IV SCH (22:00)
[2017-11-05] MEDS: LEVALBUTEROL HCL NEB 1.25 MG/3 ML AMPUL NEB SCH ×4 (01:46→19:40)
[2017-11-05] MEDS: IPRATROPIUM BROMIDE 0.02% NEB 0.5 MG/2.5 ML AMPUL NEB SCH ×4 (01:47→19:40)
[2017-11-05 03:16] LABS: INTERNATIONAL RATION (INR) 2.33; PROTHROMBIN TIME 26.6 SEC (11.4-15.4)
[2017-11-05 03:17] LABS: ANION GAP 9 (5-19); BLOOD UREA NITROGEN 33 mg/dL (7-20); CALCIUM 8.7 mg/dL (8.4-10.2); CARBON DIOXIDE 25 mmol/L (22-30); CHLORIDE 100 mmol/L (98-107); GLUCOSE 136 mg/dL (75-110); POTASSIUM 4.1 mmol/L (3.6-5.0); SODIUM 133.9 mmol/L (137-145)
[2017-11-05] MEDS: LANSOPRAZOLE 30 MG TAB.RAP.DR PO SCH (05:33)
[2017-11-05] MEDS: DOXYCYCLINE HYCLATE 100 MG TABLET PO SCH ×2 (05:34→17:49)
[2017-11-05] MEDS: HEPARIN SOD (PORCINE) 5,000 UNIT/ML 1 ML SYRINGE SUBCUT SCH ×2 (05:35→14:06)
[2017-11-05] MEDS: METOPROLOL TARTRATE 100 MG TABLET PO SCH ×2 (07:49→22:26)
[2017-11-05] MEDS: AMLODIPINE BESYLATE 10 MG TABLET PO SCH (07:50)
[2017-11-05] MEDS ORDERED: LISINOPRIL 10 MG TABLET PO SCH ×2 (08:00→10:00)
[2017-11-05] MEDS ORDERED: VALSARTAN 160 MG TABLET PO SCH ×2 (08:00→10:00)
[2017-11-05] MEDS ORDERED: CLONIDINE HCL 0.1 MG TABLET PO SCH ×2 (08:00→10:00)
[2017-11-05] MEDS ORDERED: AMLODIPINE BESYLATE 10 MG TABLET PO ONE (08:15)
[2017-11-05] MEDS ORDERED: METOPROLOL TARTRATE 100 MG TABLET PO ONE (08:15)
[2017-11-05] MEDS: CHOLECALCIFEROL (D3) 1,000 UNIT TABLET PO SCH (09:18)
[2017-11-05] MEDS: OMEGA-3 ACID ETHYL ESTERS 1 GM CAPSULE PO SCH (09:18)
[2017-11-05] MEDS: CYANOCOBALAMIN (VITAMIN B-12) 1,000 MCG TABLET PO SCH (09:18)
[2017-11-05] MEDS: DOCUSATE SODIUM 100 MG CAPSULE PO SCH (09:18)
[2017-11-05] MEDS: ASPIRIN 81 MG TABLET, CHEWABLE PO SCH (09:18)
[2017-11-05] MEDS: FAMOTIDINE 20 MG TABLET PO SCH ×2 (09:18→17:49)
[2017-11-05] MEDS: TIOTROPIUM BROMIDE DPI 5 CAP/KIT (18 MCG/CAP) IH SCH (09:19)
--- NOTE | 2017-11-05 09:44 | EKG REPORT ---
SEVERITY:- NORMAL ECG - SINUS RHYTHM : Confirmed by: Carter Rodriguez 05-Nov-2017 09:44:07
[2017-11-05] MEDS ORDERED: CEFTRIAXONE 1 GM/D5W RTU 1 GM/50 ML RTUPB IV SCH (10:00)
[2017-11-05] MEDS ORDERED: (PENDING PHARMACY ID) (Cholecalciferol (Vitamin D3) [Vitamin D3] 2,000 UNIT) PO SCH (10:00)
[2017-11-05] MEDS ORDERED: (PENDING PHARMACY ID) (Omega-3 Fatty Acids/Fish Oil [Fish Oil 1,000 Mg Capsule] 1,000 MG) PO SCH (10:00)
[2017-11-05] MEDS ORDERED: GABAPENTIN 300 MG CAPSULE PO SCH (10:00)
[2017-11-05] MEDS ORDERED: ASPIRIN 81 MG TABLET, ENT COATED PO SCH (10:00)
--- NOTE | 2017-11-05 17:04 | CONSULTATION REPORT E ---
Consultation Report NAME: SULLY ESCALANTE : 1935 AGE: 82Y DATE: 11/05/2017 ROOM: 330 A TO: DEJUAN RODNEY M.D. FROM: DEIRDRE MATHEWS M.D. Requesting Physician REFERRING PHYSICIAN: Melody Nolasco M.D. REASON FOR REFERRAL: Lung mass. HISTORY OF PRESENT ILLNESS: The patient is an 82-year-old who was admitted into the hospital with complaints of cough, chest pain. She states she was doing well until about a week ago when she developed right-sided chest pain with cough productive of yellowish phlegm. PAST MEDICAL HISTORY: She has a past medical history of COPD. She was being followed by a conduit installer in [place]. History of CHF. FAMILY HISTORY: Father had prostate cancer. She had a sister with lymphoma. SOCIAL HISTORY: She smoked cigarettes for about 2 or 3 years in her 40s. REVIEW OF SYSTEMS: Her weight has been stable. No significant weight loss. She thinks she is actually gaining weight. No abdominal pain. No blood in her stools. PHYSICAL EXAMINATION: GENERAL: On exam she is an elderly woman. She is not acutely ill looking and she actually looks younger than her stated age. NECK: No supraclavicular adenopathy. CHEST: Good air entry bilaterally. Slightly reduced on the right lower lung zone. ABDOMEN: Soft, liver and spleen not palpably enlarged. EXTREMITIES: No edema. LABORATORY DATA: White count is 11.7, hemoglobin 12.4, platelet count 252. PT 26.6, INR of 2.3. Sodium 137, calcium 8.7. IMAGING STUDIES: Chest x-ray; right lower lobe or middle lobe pneumonia. CT scan of the lungs; right hilar mass with appearance of a 15 mm right lower lobe mass and 2 adjacent smaller nodules, some degree of atelectasis right lower lobe, moderate right pleural effusion. IMPRESSION AND PLAN: The patient is an 82-year-old who was admitted into the hospital with possible pneumonia. Her CT scan of the chest done without contrast shows a right hilar mass with additional confluence 2 additional small nodules with right pleural effusion. I explained to her that this was suspicious for malignancy, however, a biopsy is needed to help confirm the diagnosis and also to the type, if it is indeed cancer. I will await findings from her bronchoscopy. Interventional radiology will be asked to see if this is amenable to CT guided biopsy as well. I explained that after the diagnosis has been established I will be able to explain further to her the treatment options and overall prognosis. I thank you for this consultation and allowing me to be a part of her care. DICTATING PHYSICIAN: DEJUAN RODNEY M.D. [id number] PHY#: [id number] ID: [id number] JOB#: [id number] ACCT: [id number] cc:DEJUAN RODNEY M.D. >
[2017-11-05] MEDS: CEFTRIAXONE SODIUM 1,000 MG in NORMAL SALINE 100 ML IV SCH (17:49)
[2017-11-05] MEDS: ACETAMINOPHEN 325 MG TABLET PO PRN (17:51)
--- NOTE | 2017-11-05 18:37 | PDOC PROGRESS REPORT ---
Subjective Progress Note for:: 11/05/17 Subjective:: Patient is clinically improved Still complaining of some discomfort in the chest which is oxygenating adequately with nasal cannula No fever no chills CT of the chest was performed and is suspicious for mass in the right lower lobe and right hilum There is a small right pleural effusion Reason For Visit: CHF COPD AND EXACERBATION, PNEUMONIA Physical Exam Vital Signs: Temp Pulse Resp BP Pulse Ox 98.6 F 72 16 147/58 H 96 11/05/17 15:51 11/05/17 15:51 11/05/17 15:51 11/05/17 15:51 11/05/17 15:51 Intake & Output 11/04/17 11/05/17 11/06/17 00:59 00:59 00:59 Intake Total 1885 1174 Output Total 800 1200 Balance 1085 -26 Weight 76.6 kg 77.2 kg General appearance: PRESENT: no acute distress, well-developed, well-nourished Head exam: PRESENT: atraumatic, normocephalic Eye exam: PRESENT: conjunctiva pink, EOMI, PERRLA. ABSENT: scleral icterus Neck exam: ABSENT: carotid bruit, JVD, lymphadenopathy, thyromegaly Respiratory exam: PRESENT: decreased breath sounds. ABSENT: accessory muscle use, rales, wheezes Cardiovascular exam: PRESENT: systolic murmur - 3/6, other - Regular rhythm. ABSENT: gallop, rubs Pulses: PRESENT: normal dorsalis pedis pul Vascular exam: PRESENT: normal capillary refill GI/Abdominal exam: PRESENT: normal bowel sounds, soft. ABSENT: distended, guarding, mass, organolmegaly, rebound, tenderness Musculoskeletal exam: ABSENT: ambulatory, deformity, dislocation, full ROM, normal inspection, tenderness, other Neurological exam: PRESENT: alert, awake, oriented to person, oriented to place , oriented to time, oriented to situation, CN II-XII grossly intact. ABSENT: motor sensory deficit Results Laboratory Results: 11/04/17 05:39 11/05/17 02:44 11/05/17 02:44 Sodium 133.9 L Potassium 4.1 Chloride 100 Carbon Dioxide 25 Anion Gap 9 BUN 33 H Creatinine 0.98 Est GFR ( Amer) > 60 Est GFR (Non-Af Amer) 54 L Glucose 136 H Calcium 8.7 04/11/04/17 11/05/17 14:36 20:35 02:44 Troponin I 0.016 0.012 < 0.012 Impressions: Chest X-Ray 11/03/17 21:15 IMPRESSION: Right lower lobe or middle lobe pneumonia. Chest CT 11/04/17 16:16 IMPRESSION: 1. Right hilar mass with the appearance of a 15 mm right lower lobe mass and 2 adjacent smaller nodules. There is some degree of atelectasis in the right lower lobe. There is a moderate right pleural effusion. 2. Tracheobronchial calcifications. These can be seen with long-term warfarin therapy. Assessment & Plan - Diagnosis (1) COPD exacerbation Is this a current diagnosis for this admission?: Yes (2) Right lower lobe pneumonia Qualifiers: Pneumonia type: due to unspecified organism Qualified Code(s): J18.1 - Lobar pneumonia, unspecified organism Is this a current diagnosis for this admission?: Yes Plan: Continue present antibiotic coverage (3) History of CHF (congestive heart failure) Is this a current diagnosis for this admission?: Yes (4) Chronic anticoagulation Is this a current diagnosis for this admission?: Yes Plan: We will hold Coumadin (5) Mass of right lung Is this a current diagnosis for this admission?: Yes Plan: Discussed case with Dr. Solo and Dr. Vazquez who will consult Informed patient of necessity for her to undergo further testing. - Time Time Spent with patient: 25-34 minutes
--- NOTE | 2017-11-05 19:42 | XCELERA REPORT ---
[address] [address] Transthoracic Echocardiogram Report Name: SULLY ESCALANTE Age: 82 yrs Gender: Female : 1935 Patient Status: Inpatient Patient Location: [address] [place] [address] Study Date: 11/05/2017 11:23 AM Height: 61 in Weight: 168 lb BSA: 1.8 m2 Procedure: A complete two-dimensional transthoracic echocardiogram was performed (2D, M-mode, spectral and color flow Doppler). The study was technically difficult with many images being suboptimal in quality. Reason For Study: CHF Ordering Physician: ELIJAH ENG Performed By: Debbie Chery Interpretation Summary The study was technically difficult with many images being suboptimal in quality. The left ventricular ejection fraction is normal. There is mild concentric left ventricular hypertrophy. Doppler measurements suggest pseudonormalized left ventricular relaxation, which is associated with grade II/IV or mild to moderate diastolic dysfunction The left ventricle is grossly normal size. Wall motion cannot be accurately commented on, but no definite regional wall motion abnormalities noted. The right ventricular systolic function is normal. The right ventricle is mildly dilated. The right atrium is borderline dilated. Borderline left atrial enlargement. There is a mild amount of mitral regurgitation There is no mitral valve stenosis. There is mild to moderate aortic stenosis There is a peak gradient of 27, mean 15 mm of Hg. No aortic regurgitation is present. There is a mild amount of tricuspid regurgitation There is moderate pulmonary hypertension by echo Right ventricular systolic pressure is estimated to be elevated at 40- 50mmHg. The aortic root is not well visualized but is probably normal size. The inferior vena cava was not well visualized Minimal pericardial effusion. MMode/2D Measurements & Calculations RVDd: 3.2 cm LVIDd: 4.2 cm FS: 32.1 % Ao root diam: 2.2 cm IVSd: 1.0 cm LVIDs: 2.8 cm EDV(Teich): 76.9 ml LVPWd: 1.1 cm ESV(Teich): 30.2 ml Ao root area: 3.8 cm2 EF(Teich): 60.7 % LA dimension: 3.5 cm LVOT diam: 1.9 cm LVOT area: 2.8 cm2 Doppler Measurements & Calculations MV E max matthew: MV P1/2t max matthew: Ao V2 max: LV V1 max P.8 cm/sec 134.3 cm/sec 260.6 cm/sec 6.0 mmHg MV A max matthew: MV P1/2t: 64.7 msec Ao max PG: LV V1 mean P.4 cm/sec MVA(P1/2t): 3.4 cm2 27.2 mmHg 3.0 mmHg MV E/A: 1.6 MV dec slope: Ao V2 mean: LV V1 max: 608.2 cm/sec2 177.0 cm/sec 122.9 cm/sec MV dec time: 0.21 secAo mean PG: LV V1 mean: 14.9 mmHg 78.2 cm/sec Ao V2 VTI: LV V1 VTI: 59.1 cm 30.8 cm GIL(I,D): 1.4 cm2 GIL(V,D): 1.3 cm2 SV(LVOT): 84.9 ml PA V2 max: TR max matthew: 51.7 cm/sec 332.6 cm/sec PA max P.1 mmHg TR max P.2 mmHg Left Ventricle The left ventricle is grossly normal size. There is mild concentric left ventricular hypertrophy. The left ventricular ejection fraction is normal. Doppler measurements suggest pseudonormalized left ventricular relaxation, which is associated with grade II/IV or mild to moderate diastolic dysfunction. Wall motion cannot be accurately commented on, but no definite regional wall motion abnormalities noted. Right Ventricle The right ventricle is mildly dilated. There is normal right ventricular wall thickness. The right ventricular systolic function is normal. Atria The right atrium is borderline dilated. Borderline left atrial enlargement. Interarterial septum not well visualized and not well dopplered. Cannot comment on ASD/PFO presence. Mitral Valve There is moderate mitral annular calcification. There is no mitral valve stenosis. There is a mild amount of mitral regurgitation. Aortic Valve The aortic valve is moderately calcified. There is mild to moderate aortic stenosis. There is a peak gradient of 27, mean 15 mm of Hg. No aortic regurgitation is present. Tricuspid Valve The tricuspid valve is not well visualized, but is grossly normal. There is no tricuspid stenosis. There is a mild amount of tricuspid regurgitation. There is moderate pulmonary hypertension by echo. Right ventricular systolic pressure is estimated to be elevated at 40-50mmHg. Pulmonic Valve The pulmonic valve is not well visualized. Great Vessels The aortic root is not well visualized but is probably normal size. The inferior vena cava was not well visualized. Effusions Minimal pericardial effusion. : ELIJAH ENG > Carter Rodriguez
[2017-11-05] MEDS: ATORVASTATIN CALCIUM 40 MG TABLET PO SCH (22:26)
[2017-11-05] MEDS: SOTALOL HCL 120 MG PO SCH (22:27)
[2017-11-06] MEDS: LEVALBUTEROL HCL NEB 1.25 MG/3 ML AMPUL NEB SCH ×4 (01:34→20:21)
[2017-11-06] MEDS: IPRATROPIUM BROMIDE 0.02% NEB 0.5 MG/2.5 ML AMPUL NEB SCH ×4 (01:34→20:21)
[2017-11-06] MEDS: GUAIFENESIN SYRP 200 MG/10 ML UDC PO PRN (05:12)
[2017-11-06] MEDS: LANSOPRAZOLE 30 MG TAB.RAP.DR PO SCH (05:13)
[2017-11-06] MEDS: PREGABALIN 100 MG CAPSULE PO SCH ×3 (05:13→22:06)
[2017-11-06] MEDS: DOXYCYCLINE HYCLATE 100 MG TABLET PO SCH ×2 (05:13→17:39)
[2017-11-06] MEDS ORDERED: PROMETHAZINE HCL INJ 25 MG/1 ML VIAL ONE (06:32)
[2017-11-06] MEDS: PROMETHAZINE HCL INJ 25 MG/1 ML VIAL IV PRN (06:40)
[2017-11-06 06:54] LABS: ANION GAP 9 (5-19); BLOOD UREA NITROGEN 20 mg/dL (7-20); CALCIUM 8.8 mg/dL (8.4-10.2); CARBON DIOXIDE 29 mmol/L (22-30); CHLORIDE 102 mmol/L (98-107); GLUCOSE 112 mg/dL (75-110); POTASSIUM 3.8 mmol/L (3.6-5.0); SODIUM 139.9 mmol/L (137-145)
[2017-11-06] MEDS: LISINOPRIL 10 MG TABLET PO SCH (09:37)
[2017-11-06] MEDS: OMEGA-3 ACID ETHYL ESTERS 1 GM CAPSULE PO SCH (09:38)
[2017-11-06] MEDS: FAMOTIDINE 20 MG TABLET PO SCH ×2 (09:38→17:39)
[2017-11-06] MEDS: VALSARTAN 160 MG TABLET PO SCH (09:38)
[2017-11-06] MEDS: CHOLECALCIFEROL (D3) 1,000 UNIT TABLET PO SCH (09:38)
[2017-11-06] MEDS: DOCUSATE SODIUM 100 MG CAPSULE PO SCH (09:39)
[2017-11-06] MEDS: METOPROLOL TARTRATE 100 MG TABLET PO SCH ×2 (09:39→22:07)
[2017-11-06] MEDS: AMLODIPINE BESYLATE 10 MG TABLET PO SCH (09:39)
[2017-11-06] MEDS: HYDRALAZINE HCL 25 MG TABLET PO SCH ×2 (09:39→14:29)
[2017-11-06] MEDS: CYANOCOBALAMIN (VITAMIN B-12) 1,000 MCG TABLET PO SCH (09:39)
[2017-11-06] MEDS: TIOTROPIUM BROMIDE DPI 5 CAP/KIT (18 MCG/CAP) IH SCH (09:40)
[2017-11-06] MEDS: SOTALOL HCL 120 MG PO SCH ×2 (09:40→23:06)
--- NOTE | 2017-11-06 15:34 | PDOC PROGRESS REPORT ---
Subjective Progress Note for:: 11/06/17 Subjective:: Patient is somewhat anxious and her blood pressures been elevated but she has had no respiratory distress no fever no chills She is alert awake Reason For Visit: CHF COPD AND EXACERBATION, PNEUMONIA Physical Exam Vital Signs: Temp Pulse Resp BP Pulse Ox 99.2 F 72 16 181/54 H 97 11/06/17 07:52 11/06/17 14:06 11/06/17 14:06 11/06/17 07:52 11/06/17 14:06 Intake & Output 11/05/17 11/06/17 11/07/17 00:59 00:59 00:59 Intake Total 1885 1174 5 Output Total 800 1200 Balance 1085 -26 5 Weight 76.6 kg 77.2 kg General appearance: PRESENT: no acute distress, well-developed, well-nourished Head exam: PRESENT: atraumatic, normocephalic Eye exam: PRESENT: conjunctiva pink, EOMI, PERRLA. ABSENT: scleral icterus Neck exam: ABSENT: carotid bruit, JVD, lymphadenopathy, thyromegaly Respiratory exam: PRESENT: decreased breath sounds. ABSENT: accessory muscle use, rales, wheezes Cardiovascular exam: PRESENT: systolic murmur - 3/6, other - Regular rhythm. ABSENT: gallop, rubs Pulses: PRESENT: normal dorsalis pedis pul Vascular exam: PRESENT: normal capillary refill GI/Abdominal exam: PRESENT: normal bowel sounds, soft. ABSENT: distended, guarding, mass, organolmegaly, rebound, tenderness Musculoskeletal exam: ABSENT: ambulatory, deformity, dislocation, full ROM, normal inspection, tenderness, other Neurological exam: PRESENT: alert, awake, oriented to person, oriented to place , oriented to time, oriented to situation, CN II-XII grossly intact. ABSENT: motor sensory deficit Results Laboratory Results: 11/04/17 05:39 11/06/17 06:30 11/05/17 11/06/17 18:36 06:30 Sodium 139.9 Potassium 3.8 Chloride 102 Carbon Dioxide 29 Anion Gap 9 BUN 20 Creatinine 0.63 Est GFR ( Amer) > 60 Est GFR (Non-Af Amer) > 60 Glucose 112 H Calcium 8.8 Stool for White Cells NO WBCs SEEN 11/04/17 11/04/17 11/05/17 14:36 20:35 02:44 Troponin I 0.016 0.012 < 0.012 Impressions: Chest X-Ray 11/03/17 21:15 IMPRESSION: Right lower lobe or middle lobe pneumonia. Chest CT 11/04/17 16:16 IMPRESSION: 1. Right hilar mass with the appearance of a 15 mm right lower lobe mass and 2 adjacent smaller nodules. There is some degree of atelectasis in the right lower lobe. There is a moderate right pleural effusion. 2. Tracheobronchial calcifications. These can be seen with long-term warfarin therapy. Assessment & Plan - Diagnosis (1) COPD exacerbation Is this a current diagnosis for this admission?: Yes Plan: Continue the present management Continue nebs (2) Right lower lobe pneumonia Qualifiers: Pneumonia type: due to unspecified organism Qualified Code(s): J18.1 - Lobar pneumonia, unspecified organism Is this a current diagnosis for this admission?: Yes Plan: Likely postobstructive pneumonia Continue antibiotics White blood count has improved Patient's oxygenation is adequate (3) History of CHF (congestive heart failure) Is this a current diagnosis for this admission?: Yes Plan: Acute on chronic diastolic CHF with preserved left ventricular function Echocardiogram was performed on 11/05/2017 Showing normal left ventricular function Moderate diastolic dysfunction Moderate moderate pulmonary Hypertension BNP was elevated over 6000 We will give patient 20 mg of IV Lasix (4) Chronic anticoagulation Is this a current diagnosis for this admission?: Yes Plan: Coumadin is on hold We will administer FFP in a.m. if needed prior to thoracentesis (5) Mass of right lung Is this a current diagnosis for this admission?: Yes Plan: 15 mm right hilar mass with [address] Solo was consulted and Bronchoscopy will be performed on Friday for tissue diagnosis (6) Pleural effusion, right Is this a current diagnosis for this admission?: Yes Plan: For thoracentesis in a.m. by Dr. Solo We will recheck PT/INR in a.m. FFP if needed (7) Uncontrolled hypertension Is this a current diagnosis for this admission?: Yes Plan: Increase hydralazine Lasix IV - Time Time Spent with patient: 25-34 minutes
[2017-11-06] MEDS ORDERED: FUROSEMIDE INJ/PF 20 MG/2 ML SDV IV ONE (16:15)
[2017-11-06] MEDS: HYDRALAZINE HCL 50 MG TABLET PO SCH (17:40)
[2017-11-06] MEDS: CEFTRIAXONE SODIUM 1,000 MG in NORMAL SALINE 100 ML IV SCH (17:40)
[2017-11-06] MEDS ORDERED: ZOLPIDEM TARTRATE 5 MG TABLET PO PRN (18:55)
[2017-11-06] MEDS: ATORVASTATIN CALCIUM 40 MG TABLET PO SCH (22:06)
[2017-11-06] MEDS: ACETAMINOPHEN 325 MG TABLET PO PRN (22:08)
[2017-11-07] MEDS: IPRATROPIUM BROMIDE 0.02% NEB 0.5 MG/2.5 ML AMPUL NEB SCH ×4 (01:46→20:35)
[2017-11-07] MEDS: LEVALBUTEROL HCL NEB 1.25 MG/3 ML AMPUL NEB SCH ×4 (01:46→20:35)
[2017-11-07] MEDS: PREGABALIN 100 MG CAPSULE PO SCH ×3 (05:48→21:44)
[2017-11-07] MEDS: LANSOPRAZOLE 30 MG TAB.RAP.DR PO SCH (05:49)
[2017-11-07] MEDS: DOXYCYCLINE HYCLATE 100 MG TABLET PO SCH ×2 (05:49→18:56)
[2017-11-07 06:24] LABS: INTERNATIONAL RATION (INR) 1.44; PROTHROMBIN TIME 18.3 SEC (11.4-15.4)
[2017-11-07] MEDS ORDERED: PHYTONADIONE INJ 10 MG/1 ML AMPULE SUBCUT ONE (09:01)
[2017-11-07] MEDS: CHOLECALCIFEROL (D3) 1,000 UNIT TABLET PO SCH (09:43)
[2017-11-07] MEDS: FAMOTIDINE 20 MG TABLET PO SCH ×2 (09:43→18:55)
[2017-11-07] MEDS: OMEGA-3 ACID ETHYL ESTERS 1 GM CAPSULE PO SCH (09:43)
[2017-11-07] MEDS: DOCUSATE SODIUM 100 MG CAPSULE PO SCH (09:43)
[2017-11-07] MEDS: CYANOCOBALAMIN (VITAMIN B-12) 1,000 MCG TABLET PO SCH (09:43)
[2017-11-07] MEDS: AMLODIPINE BESYLATE 10 MG TABLET PO SCH (09:45)
[2017-11-07] MEDS: METOPROLOL TARTRATE 100 MG TABLET PO SCH ×2 (09:45→21:34)
[2017-11-07] MEDS: LISINOPRIL 10 MG TABLET PO SCH (09:45)
[2017-11-07] MEDS: HYDRALAZINE HCL 50 MG TABLET PO SCH ×2 (09:46→15:24)
[2017-11-07] MEDS: VALSARTAN 160 MG TABLET PO SCH (09:46)
[2017-11-07] MEDS: SOTALOL HCL 120 MG PO SCH ×2 (09:48→21:44)
[2017-11-07] MEDS: TIOTROPIUM BROMIDE DPI 5 CAP/KIT (18 MCG/CAP) IH SCH (09:49)
[2017-11-07] MEDS: PROMETHAZINE HCL INJ 25 MG/1 ML VIAL IV PRN (09:59)
[2017-11-07] MEDS ORDERED: LIDOCAINE 1% INJ-PF (10 MG/ML) 30 ML SDV ONE (10:36)
--- NOTE | 2017-11-07 11:35 | RADIOLOGY REPORT (SQ) ---
EXAM DESCRIPTION: CHEST SINGLE VIEW COMPLETED DATE/TIME: 11/07/2017 11:23 am REASON FOR STUDY: S/P RT THORACENTESIS COMPARISON: 11/03/2017. EXAM PARAMETERS: NUMBER OF VIEWS: One view. TECHNIQUE: Single frontal radiographic view of the chest acquired. RADIATION DOSE: NA LIMITATIONS: None. FINDINGS: LUNGS AND PLEURA: No pneumothorax following thoracentesis. Improved aeration in the right lung. MEDIASTINUM AND HILAR STRUCTURES: No masses. Contour normal. HEART AND VASCULAR STRUCTURES: Heart normal in size. Normal vasculature. BONES: No acute findings. HARDWARE: Pacemaker. Hardware in the cervical spine. OTHER: No other significant finding. IMPRESSION: NO PNEUMOTHORAX FOLLOWING THORACENTESIS. IMPROVED AERATION IN THE RIGHT LUNG. TECHNICAL DOCUMENTATION: JOB ID: [id number] [employer]- All Rights Reserved Reading location - IP/workstation name: [email or web address]
--- NOTE | 2017-11-07 11:51 | RADIOLOGY REPORT (SQ) ---
EXAM DESCRIPTION: U/S THORACENTESIS WITH IMAGING COMPLETED DATE/TIME: 11/07/2017 11:33 am REASON FOR STUDY: r pleural effusion COMPARISON: None. LIMITATIONS: None. PROCEDURE: Procedure, risks, benefit, and alternative explained to patient who then gave written con sent. The posterior right chest wall was marked using ultrasound guidance. A time-out was called fo r correct marking verification. Chest prepped and draped using sterile technique. Local anesthesia a chieved using 10 ml of 1% lidocaine injection. A 5fr needle/catheter set was introduced into the rig ht pleural space. Fluid was aspirated. The catheter was removed and the entry site was covered with sterile bandage. No immediate complications noted. Images acquired during the procedure were stored on PACS. FINDINGS: ENTRY SITE: Posterior right chest. FLUID VOLUME: 85 mL. FLUID ANALYSIS: Shirley colored. OTHER: Fluid sent to the lab for testing. IMPRESSION: SUCCESSFUL THORACENTESIS USING ULTRASOUND GUIDANCE. COMMENT: Patient medication list reviewed: Yes- Quality ID# [id number]:Eligible professional attests to doc umenting in the medical record they obtained, updated, or reviewed the patient's current medications. TECHNICAL DOCUMENTATION: JOB ID: [id number] [employer]- All Rights Reserved Reading location - IP/workstation name: [email or web address]
[2017-11-07 12:36] LABS: TOTAL PROTEIN 5.8 g/dL (6.3-8.2)
[2017-11-07 12:55] LABS: FLUID APPEARANCE CLOUDY; FLUID COLOR AMBER; FLUID TYPE PLEURAL
[2017-11-07 12:56] LABS: FLUID VISCOSITY LIQUID
--- NOTE | 2017-11-07 13:51 | RADIOLOGY REPORT (SQ) ---
EXAM DESCRIPTION: CHEST SINGLE VIEW COMPLETED DATE/TIME: 11/07/2017 1:35 pm REASON FOR STUDY: 2 HOURS S/P RT THORACENTESIS COMPARISON: 11/07/2017 EXAM PARAMETERS: NUMBER OF VIEWS: One view. TECHNIQUE: Single frontal radiographic view of the chest acquired. RADIATION DOSE: NA LIMITATIONS: None. FINDINGS: LUNGS AND PLEURA: There is no pneumothorax. No infiltrate or effusion is present. MEDIASTINUM AND HILAR STRUCTURES: No masses. Contour normal. HEART AND VASCULAR STRUCTURES: Heart normal in size. Normal vasculature. BONES: No acute findings. HARDWARE: None in the chest. OTHER: No other significant finding. IMPRESSION: No pneumothorax status post thoracentesis. TECHNICAL DOCUMENTATION: JOB ID: [id number] [employer]- All Rights Reserved Reading location - IP/workstation name: [email or web address]
--- NOTE | 2017-11-07 16:08 | RADIOLOGY REPORT (SQ) ---
EXAM DESCRIPTION: CHEST SINGLE VIEW COMPLETED DATE/TIME: 11/07/2017 4:00 pm REASON FOR STUDY: increased chest pain with cough COMPARISON: X-rays done earlier in the day, 11/07/2017. EXAM PARAMETERS: NUMBER OF VIEWS: One view. TECHNIQUE: Single frontal radiographic view of the chest acquired. RADIATION DOSE: NA LIMITATIONS: None. FINDINGS: LUNGS AND PLEURA: No opacities, masses or pneumothorax. No pleural effusion. MEDIASTINUM AND HILAR STRUCTURES: No masses. Contour normal. HEART AND VASCULAR STRUCTURES: Mild cardiomegaly. Normal vasculature. BONES: No acute findings. HARDWARE: Pacemaker. Hardware in the cervical spine. OTHER: No other significant finding. IMPRESSION: STABLE APPEARANCE. NO PNEUMOTHORAX OR OTHER ACUTE RADIOGRAPHIC FINDING IN THE CHEST. TECHNICAL DOCUMENTATION: JOB ID: [id number] [employer]- All Rights Reserved Reading location - IP/workstation name: [email or web address]
[2017-11-07] MEDS: MORPHINE SULFATE 10 MG/ML INJ IV PRN ×2 (16:27→21:44)
--- NOTE | 2017-11-07 17:44 | PDOC PROGRESS REPORT ---
Subjective Progress Note for:: 11/07/17 Subjective:: Patient underwent thoracentesis today She is quite anxious when evaluated she is complaining of pleuritic chest pain She has no fever no chills No palpitations She does not appear in distress except for the anxiety Reason For Visit: CHF COPD AND EXACERBATION, PNEUMONIA Physical Exam Vital Signs: Temp Pulse Resp BP Pulse Ox 99.0 F 63 18 146/53 H 99 11/07/17 15:57 11/07/17 15:57 11/07/17 15:57 11/07/17 15:57 11/07/17 15:57 Intake & Output 11/06/17 11/07/17 11/08/17 00:59 00:59 00:59 Intake Total 1174 1801 360 Output Total 1200 Balance -26 1801 360 Weight 77.2 kg 75.7 kg Looks extremely anxious a little pale Pupils are PERRLA extraocular motor intact Neck supple Heart regular rhythm no murmur no gallop Lungs diminished breath sounds bilaterally no rales no rhonchi Abdomen soft nontender Extremities intact Results Laboratory Results: 11/04/17 05:39 11/06/17 06:30 11/07/17 11/07/17 11/07/17 11:12 11:12 11:58 Total Protein Cancelled 5.8 L Fluid Type PLEURAL Fluid Source Fluid Color DALILA Fluid Appearance CLOUDY Fluid Viscosity LIQUID Fluid WBC 5430 Fluid RBC 52062 11/05/17 18:36 Stool - Stool - Final 11/04/17 11/04/17 11/05/17 14:36 20:35 02:44 Troponin I 0.016 0.012 < 0.012 Impressions: Chest CT 11/04/17 16:16 IMPRESSION: 1. Right hilar mass with the appearance of a 15 mm right lower lobe mass and 2 adjacent smaller nodules. There is some degree of atelectasis in the right lower lobe. There is a moderate right pleural effusion. 2. Tracheobronchial calcifications. These can be seen with long-term warfarin therapy. Chest X-Ray 11/07/17 00:00 IMPRESSION: STABLE APPEARANCE. NO PNEUMOTHORAX OR OTHER ACUTE RADIOGRAPHIC FINDING IN THE CHEST. Thoracentesis Ultrasound 11/07/17 08:58 IMPRESSION: SUCCESSFUL THORACENTESIS USING ULTRASOUND GUIDANCE. Assessment & Plan - Diagnosis (1) COPD exacerbation Is this a current diagnosis for this admission?: Yes (2) Right lower lobe pneumonia Qualifiers: Pneumonia type: due to unspecified organism Qualified Code(s): J18.1 - Lobar pneumonia, unspecified organism Is this a current diagnosis for this admission?: Yes (3) History of CHF (congestive heart failure) Is this a current diagnosis for this admission?: Yes (4) Chronic anticoagulation Is this a current diagnosis for this admission?: Yes (5) Mass of right lung Is this a current diagnosis for this admission?: Yes (6) Pleural effusion, right Is this a current diagnosis for this admission?: Yes Plan: Thoracentesis what was performed today It was a bloody effusion that is an exudate Likely malignant effusion 11/07/17 11:12 Fluid Type PLEURAL Fluid Color DALILA Fluid Appearance CLOUDY Fluid Viscosity LIQUID Fluid WBC 5430 Fluid RBC 14618 Fluid Seg Neutrophils 41 Fluid Lymphocytes 58 Fluid Monocytes 1 Cytology and cultures are pending (7) Uncontrolled hypertension Is this a current diagnosis for this admission?: Yes - Time Time Spent with patient: We ordered a repeat chest x-ray and an EKG as patient was having pleuritic chest pain We do believe that there is a component of anxiety Repeat chest x-ray does not show any pneumothorax An EKG is unchanged Reevaluate patient in a.m. Reassured patient at this time Time Spent with patient: 25-34 minutes
[2017-11-07] MEDS: WARFARIN SODIUM 2 MG TABLET PO SCH (18:44)
[2017-11-07] MEDS: CEFTRIAXONE SODIUM 1,000 MG in DEXTROSE 5%-WATER 50 ML IV SCH (18:57)
--- NOTE | 2017-11-07 21:25 | EKG REPORT ---
SEVERITY:- ABNORMAL ECG - ATRIAL-PACED RHYTHM : Confirmed by: Carter Rodriguez 07-Nov-2017 21:23:58
[2017-11-07] MEDS: ATORVASTATIN CALCIUM 40 MG TABLET PO SCH (21:44)
[2017-11-07] MEDS: GUAIFENESIN SYRP 200 MG/10 ML UDC PO PRN (21:45)
[2017-11-07] MEDS ORDERED: HYDRALAZINE HCL 50 MG TABLET PO SCH (22:00)
[2017-11-08] MEDS: IPRATROPIUM BROMIDE 0.02% NEB 0.5 MG/2.5 ML AMPUL NEB SCH ×4 (02:05→20:42)
[2017-11-08] MEDS: LEVALBUTEROL HCL NEB 1.25 MG/3 ML AMPUL NEB SCH ×4 (02:05→20:42)
[2017-11-08] MEDS: DOXYCYCLINE HYCLATE 100 MG TABLET PO SCH ×2 (05:09→18:24)
[2017-11-08] MEDS: MORPHINE SULFATE 10 MG/ML INJ IV PRN ×4 (05:09→18:22)
[2017-11-08] MEDS: LANSOPRAZOLE 30 MG TAB.RAP.DR PO SCH (05:09)
[2017-11-08] MEDS: GUAIFENESIN SYRP 200 MG/10 ML UDC PO PRN (05:09)
[2017-11-08] MEDS: PREGABALIN 100 MG CAPSULE PO SCH ×3 (05:09→21:38)
[2017-11-08 06:37] LABS: INTERNATIONAL RATION (INR) 1.02; PROTHROMBIN TIME 13.9 SEC (11.4-15.4)
[2017-11-08] MEDS: PROMETHAZINE HCL INJ 25 MG/1 ML VIAL IV PRN ×3 (06:54→21:38)
[2017-11-08] MEDS: OMEGA-3 ACID ETHYL ESTERS 1 GM CAPSULE PO SCH (09:15)
[2017-11-08] MEDS: FAMOTIDINE 20 MG TABLET PO SCH ×2 (09:16→18:24)
[2017-11-08] MEDS: DOCUSATE SODIUM 100 MG CAPSULE PO SCH (09:17)
[2017-11-08] MEDS: CYANOCOBALAMIN (VITAMIN B-12) 1,000 MCG TABLET PO SCH (09:17)
[2017-11-08] MEDS: CHOLECALCIFEROL (D3) 1,000 UNIT TABLET PO SCH (09:19)
[2017-11-08] MEDS: AMLODIPINE BESYLATE 10 MG TABLET PO SCH (09:20)
[2017-11-08] MEDS: METOPROLOL TARTRATE 100 MG TABLET PO SCH (09:20)
[2017-11-08] MEDS: LISINOPRIL 10 MG TABLET PO SCH (09:20)
[2017-11-08] MEDS: VALSARTAN 160 MG TABLET PO SCH (09:20)
[2017-11-08] MEDS: SOTALOL HCL 120 MG PO SCH ×2 (09:24→21:38)
[2017-11-08] MEDS: TIOTROPIUM BROMIDE DPI 5 CAP/KIT (18 MCG/CAP) IH SCH (09:24)
[2017-11-08] MEDS: ASPIRIN 81 MG TABLET, CHEWABLE PO SCH (09:28)
[2017-11-08] MEDS ORDERED: HYDRALAZINE HCL 50 MG TABLET PO SCH (10:00)
--- NOTE | 2017-11-08 14:02 | PDOC PROGRESS REPORT ---
Subjective Progress Note for:: 11/08/17 Subjective:: SULLY ESCALANTE is a 82 year old female with a past medical history of COPD, chronic bronchitis, coronary artery disease status post permanent pacemaker, congestive heart failure and an ejection fraction. Patient presented with 7 days of nausea vomiting diarrhea, and nonproductive cough. Upon evaluation in the ED patient was diagnosed of pneumonia COPD exacerbation and sepsis Ceftriaxone and doxycycline were initiated Chest x-ray performed on admission showed a right middle lobe and right lower lobe pneumonia Patient did not have fever or leukocytosis She had a remote history of cigarette smoking Chest CT performed following day showed right hilar mass and small right pleural effusion Oncology and pulmonary consult were obtained Patient underwent thoracentesis on 11/07; the fluid was bloody suggestive of an exudate Cytology and cultures are pending Echocardiogram was performed; it showed preserved left ventricular function and moderate diastolic dysfunction Patient's course has been uncomplicated; she was continued on IV antibiotics She is scheduled for bronchoscopy on Friday-Dr. Solo- Patient was chronically anticoagulated on Coumadin; it has been held as well as aspirin Reason For Visit: CHF COPD AND EXACERBATION, PNEUMONIA Physical Exam Vital Signs: Temp Pulse Resp BP Pulse Ox 97.3 F 65 16 132/44 H 95 11/08/17 12:18 11/08/17 12:18 11/08/17 12:18 11/08/17 12:18 11/08/17 12:18 Intake & Output 11/07/17 11/08/17 11/09/17 00:59 00:59 00:59 Intake Total 1801 790 244 Balance 1801 790 244 Weight 75.7 kg 72.3 kg Does not appear in any distress less anxious than yesterday Pupils are PERRLA extraoccular motor intact Neck supple Heart regular rhythm no murmur no gallop Lungs diminished breath sounds bilaterally no rales no rhonchi Abdomen soft nontender Extremities intact Results Laboratory Results: 11/04/17 05:39 11/06/17 06:30 11/05/17 18:36 Stool - Stool - Final 11/05/17 18:36 Stool - Stool Stool Culture - Final NO SALMONELLA, SHIGELLA, CAMPYLOBACTER, OR E.COLI 0157 RECOVERED. NEGATIVE FOR SHIGA TOXINS 1&2. 11/04/17 11/04/17 11/05/17 14:36 20:35 02:44 Troponin I 0.016 0.012 < 0.012 Impressions: Chest CT 11/04/17 16:16 IMPRESSION: 1. Right hilar mass with the appearance of a 15 mm right lower lobe mass and 2 adjacent smaller nodules. There is some degree of atelectasis in the right lower lobe. There is a moderate right pleural effusion. 2. Tracheobronchial calcifications. These can be seen with long-term warfarin therapy. Chest X-Ray 11/07/17 00:00 IMPRESSION: STABLE APPEARANCE. NO PNEUMOTHORAX OR OTHER ACUTE RADIOGRAPHIC FINDING IN THE CHEST. Thoracentesis Ultrasound 11/07/17 08:58 IMPRESSION: SUCCESSFUL THORACENTESIS USING ULTRASOUND GUIDANCE. Assessment & Plan - Diagnosis (1) COPD exacerbation Is this a current diagnosis for this admission?: Yes (2) Right lower lobe pneumonia Qualifiers: Pneumonia type: due to unspecified organism Qualified Code(s): J18.1 - Lobar pneumonia, unspecified organism Is this a current diagnosis for this admission?: Yes (3) History of CHF (congestive heart failure) Is this a current diagnosis for this admission?: Yes Plan: Chronic diastolic CHF well compensated at this time (4) Chronic anticoagulation Is this a current diagnosis for this admission?: Yes (5) Mass of right lung Is this a current diagnosis for this admission?: Yes (6) Pleural effusion, right Is this a current diagnosis for this admission?: Yes (7) Uncontrolled hypertension Is this a current diagnosis for this admission?: Yes Plan: Blood pressure is stable - Time Time Spent with patient: Continue present management Patient may be switched to doxycycline p.o. at this time Bronchoscopy to be scheduled on Friday Patient likely will be discharged after procedure if stable Time Spent with patient: 25-34 minutes
[2017-11-08] MEDS: CEFTRIAXONE SODIUM 1,000 MG in DEXTROSE 5%-WATER 50 ML IV SCH (18:26)
[2017-11-08] MEDS: ATORVASTATIN CALCIUM 40 MG TABLET PO SCH (21:38)
[2017-11-09] MEDS: LEVALBUTEROL HCL NEB 1.25 MG/3 ML AMPUL NEB SCH ×3 (02:19→13:46)
[2017-11-09] MEDS: IPRATROPIUM BROMIDE 0.02% NEB 0.5 MG/2.5 ML AMPUL NEB SCH ×3 (02:19→13:46)
[2017-11-09] MEDS: LANSOPRAZOLE 30 MG TAB.RAP.DR PO SCH (05:32)
[2017-11-09] MEDS: DOXYCYCLINE HYCLATE 100 MG TABLET PO SCH ×2 (05:32→17:18)
[2017-11-09] MEDS: PREGABALIN 100 MG CAPSULE PO SCH ×3 (05:32→22:38)
[2017-11-09] MEDS: MORPHINE SULFATE 10 MG/ML INJ IV PRN (05:32)
[2017-11-09] MEDS: PROMETHAZINE HCL INJ 25 MG/1 ML VIAL IV PRN (05:42)
[2017-11-09 05:59] LABS: PROTHROMBIN TIME 13.7 SEC (11.4-15.4)
[2017-11-09 07:16] LABS: GLUCOSE BODY FLUID 142 mg/dL (.); LDH BODY FLUID 285 IU/L (.)
[2017-11-09] MEDS: SOTALOL HCL 120 MG PO SCH ×2 (09:42→22:38)
[2017-11-09] MEDS: TIOTROPIUM BROMIDE DPI 5 CAP/KIT (18 MCG/CAP) IH SCH (09:43)
[2017-11-09] MEDS: OMEGA-3 ACID ETHYL ESTERS 1 GM CAPSULE PO SCH (09:44)
[2017-11-09] MEDS: VALSARTAN 160 MG TABLET PO SCH (09:44)
[2017-11-09] MEDS: CHOLECALCIFEROL (D3) 1,000 UNIT TABLET PO SCH (09:44)
[2017-11-09] MEDS: CYANOCOBALAMIN (VITAMIN B-12) 1,000 MCG TABLET PO SCH (09:44)
[2017-11-09] MEDS: AMLODIPINE BESYLATE 10 MG TABLET PO SCH (09:44)
[2017-11-09] MEDS: LISINOPRIL 10 MG TABLET PO SCH (09:44)
[2017-11-09] MEDS: DOCUSATE SODIUM 100 MG CAPSULE PO SCH (09:45)
[2017-11-09] MEDS: FAMOTIDINE 20 MG TABLET PO SCH ×2 (09:45→17:19)
[2017-11-09] MEDS: HYDRALAZINE HCL 25 MG TABLET PO SCH ×2 (09:46→22:38)
[2017-11-09] MEDS ORDERED: METOPROLOL TARTRATE 50 MG TABLET PO SCH (10:00)
[2017-11-09] MEDS ORDERED: BENZONATATE 100 MG CAPSULE PO PRN (14:25)
--- NOTE | 2017-11-09 16:14 | PROGRESS NOTE E ---
Progress Note NAME: SULLY ESCALANTE : 1935 AGE: 82Y DATE: 11/09/2017 ROOM: 330 SUBJECTIVE: The patient is currently lying in bed. She states that she feels overall better today. The patient denies any nausea, vomiting, diarrhea. No shortness of breath, dizziness, chest pain. No fevers, chills. The patient has been afebrile. Her blood pressures have been in the good range and the patient did not voice any other concerns at this time. REVIEW OF SYSTEMS: The rest of the review of systems negative. MEDICATIONS: Have been reviewed. OBJECTIVE: GENERAL: The patient is an 82-year-old female who is awake, alert. She oriented to person, time, place, situation. She is verbal, conversational. Does not appear to be in any acute distress. VITAL SIGNS: Temperature is 98.5, pulse 64, respirations 16, blood pressure is 134/47, oxygen saturation is 96% on room air. SKIN: Warm and dry. No rash. She is not diaphoretic. HEENT: Pupils equal, round and reactive to light and accommodation. Conjunctivae are pink. NECK: There is no evidence of JVP. CARDIOVASCULAR: Heart is regular. There is no rub. CHEST: Clear, symmetrical, unlabored. ABDOMEN: Soft, nontender, nondistended. BACK: No CVA tenderness, sacral edema. EXTREMITIES: No clubbing, cyanosis, edema. PSYCHIATRIC: Appropriate affect, pleasant mood. DIAGNOSTICS: Lab values are as follows. Hematology obtained on 11/04/2017; WBC is 7.4, hemoglobin is 10.8, hematocrit is 32.3, platelet count is 180,000. Chemistry obtained on 11/06/2017; sodium is 139, potassium 2.8, chloride is 102, carbon dioxide 29, BUN 20, creatinine 0.63, glucose 112, calcium is 8.8. LDH is 485. Total protein is 5.8. IMPRESSION AND PLAN: 1. CHRONIC OBSTRUCTIVE PULMONARY DISEASE EXACERBATION. This is resolved. 2. RIGHT LOWER LOBE PNEUMONIA. The patient continues on antibiotics, will transition to p.o. 3. CHRONIC DIASTOLIC DYSFUNCTION. The patient has no evidence of failure at this time. 4. CHRONIC ANTICOAGULATION. This is on hold for patient's bronchoscopy in the a.m. 5. RIGHT LUNG MASS. The patient is to have bronchoscopy in the a.m. 6. RIGHT PLEURAL EFFUSION. This was a small effusion that was found to be exudative. The patient is being seen by oncology as well. 7. UNCONTROLLED HYPERTENSION. Blood pressures are overall much stable. Will resume home dosage of Lopressor and eliminate TYLOR since the patient is taking an ARB. CODE STATUS: The patient is a full code. DISPOSITION: Depending on the patient's symptomatology and diagnostic findings will reevaluate in the a.m. The patient can be downgraded to a medical bed. TIME SPENT: On this follow up, including assessment and plan, physical examination, patient education, review of records, family meeting is 25 minutes. DICTATING PHYSICIAN: MARION TRAN NP [id number] PHY#: [id number] ID: [id number] JOB#: [id number] ACCT: [id number] cc: >
[2017-11-09] MEDS: CEFUROXIME 500 MG TABLET PO SCH (17:18)
[2017-11-09] MEDS: ACETAMINOPHEN 325 MG TABLET PO PRN (19:54)
[2017-11-09] MEDS ORDERED: METOPROLOL TARTRATE 100 MG TABLET PO SCH (22:00)
[2017-11-09] MEDS: METOPROLOL TARTRATE 50 MG TABLET PO SCH (22:38)
[2017-11-09] MEDS: ATORVASTATIN CALCIUM 40 MG TABLET PO SCH (22:38)
[2017-11-10] MEDS: LANSOPRAZOLE 30 MG TAB.RAP.DR PO SCH (06:47)
[2017-11-10] MEDS: PREGABALIN 100 MG CAPSULE PO SCH ×3 (06:47→21:02)
[2017-11-10] MEDS: DOXYCYCLINE HYCLATE 100 MG TABLET PO SCH ×2 (06:51→18:34)
[2017-11-10] MEDS: CEFUROXIME 500 MG TABLET PO SCH ×2 (06:51→18:34)
[2017-11-10] MEDS: SOTALOL HCL 120 MG PO SCH ×2 (10:38→21:02)
[2017-11-10] MEDS: TIOTROPIUM BROMIDE DPI 5 CAP/KIT (18 MCG/CAP) IH SCH (10:39)
[2017-11-10] MEDS ORDERED: DEXTROSE 40% GEL 15 GM TUBE PO PRN ×2 (10:40)
[2017-11-10] MEDS ORDERED: GLUCAGON,HUMAN RECOMB 1 MG INJ SUBCUT PRN (10:40)
[2017-11-10] MEDS ORDERED: DEXTROSE 50%-WATER 25 GM/50 ML DISP.SYRIN IV PRN ×2 (10:40)
[2017-11-10] MEDS: CYANOCOBALAMIN (VITAMIN B-12) 1,000 MCG TABLET PO SCH (10:44)
[2017-11-10] MEDS: FAMOTIDINE 20 MG TABLET PO SCH ×2 (10:44→18:34)
[2017-11-10] MEDS: OMEGA-3 ACID ETHYL ESTERS 1 GM CAPSULE PO SCH (10:45)
[2017-11-10] MEDS: CHOLECALCIFEROL (D3) 1,000 UNIT TABLET PO SCH (10:45)
[2017-11-10] MEDS: METOPROLOL TARTRATE 50 MG TABLET PO SCH ×2 (10:46→21:01)
[2017-11-10] MEDS: VALSARTAN 160 MG TABLET PO SCH (10:47)
[2017-11-10] MEDS: DOCUSATE SODIUM 100 MG CAPSULE PO SCH (10:47)
[2017-11-10] MEDS ORDERED: MORPHINE SULFATE 10 MG/ML INJ ONE (10:48)
[2017-11-10] MEDS: AMLODIPINE BESYLATE 10 MG TABLET PO SCH (10:48)
[2017-11-10] MEDS: HYDRALAZINE HCL 25 MG TABLET PO SCH ×2 (10:48→21:02)
[2017-11-10] MEDS: MORPHINE SULFATE 10 MG/ML INJ IV PRN ×2 (10:50→14:48)
[2017-11-10] MEDS: LEVALBUTEROL HCL NEB 1.25 MG/3 ML AMPUL NEB PRN (12:56)
--- NOTE | 2017-11-10 13:48 | RADIOLOGY REPORT (SQ) ---
EXAM DESCRIPTION: CT CHEST WITHOUT COMPLETED DATE/TIME: 11/10/2017 1:31 pm REASON FOR STUDY: f/u abnormal ct lung masses COMPARISON: 11/04/2017 TECHNIQUE: CT scan performed of the chest without intravenous contrast. Images reviewed with lung, soft tissue and bone windows. Reconstructed coronal and sagittal MPR images reviewed. All images st ored on PACS. All CT scanners at this facility use dose modulation, iterative reconstruction, and/or weight based d osing when appropriate to reduce radiation dose to as low as reasonably achievable (ALARA). [facility]: Dose Right [facility]: CareDose [facility]: Dose Right [facility]: Teradose 4D [facility]: Tiqets RADIATION DOSE: CT Rad equipment meets quality standard of care and radiation dose reduction techniq ues were employed. CTDIvol: 7.8 mGy. DLP: 272 mGy-cm. mGy. LIMITATIONS: No technical limitations. FINDINGS: LUNGS AND PLEURA: There has been improved aeration in the right lung with a residual small pleural effusion and associated bandlike parenchymal density most consistent with atelectasis. Righ t upper lobe bronchiectasis. Trace left pleural effusion. HILAR AND MEDIASTINAL STRUCTURES: 2.4 x 1.5 cm right hilar node. Slightly smaller left hilar node. HEART AND VASCULAR STRUCTURES: Cardiomegaly. Dense mitral annular calcifications. No pericardial ef fusion. Pacemaker. UPPER ABDOMEN: No significant findings. Limited exam. THYROID AND OTHER SOFT TISSUES: No masses. No adenopathy. BONES: No acute findings. HARDWARE: None in the chest. OTHER: No other significant findings. IMPRESSION: Overall improved appearance of the right lung. Residual trace bilateral pleural effusio ns and bilateral hilar adenopathy. TECHNICAL DOCUMENTATION: JOB ID: [id number] Quality ID # [id number]: Final reports with documentation of one or more dose reduction techniques (e.g., Au tomated exposure control, adjustment of the mA and/or kV according to patient size, use of iterative reconstruction technique) 2010 [employer]- All Rights Reserved Reading location - IP/workstation name: [email or web address]
[2017-11-10] MEDS ORDERED: HYDROMORPHONE HCL INJ/PF 2 MG/ML AMPULE IV PRN (16:46)
[2017-11-10] MEDS ORDERED: PROMETHAZINE HCL INJ 25 MG/1 ML VIAL IV PRN (16:47)
[2017-11-10] MEDS ORDERED: PROMETHAZINE HCL 25 MG TABLET PO PRN (17:36)
[2017-11-10] MEDS: ATORVASTATIN CALCIUM 40 MG TABLET PO SCH (21:01)
--- NOTE | 2017-11-10 21:22 | PDOC PROGRESS REPORT ---
Subjective Progress Note for:: 11/10/17 Subjective:: SULLY ESCALANTE is a 82 year old female with a past medical history of COPD, chronic bronchitis, coronary artery disease status post permanent pacemaker, congestive heart failure and an ejection fraction. Patient presented with 7 days of nausea vomiting diarrhea, and nonproductive cough. Upon evaluation in the ED patient was diagnosed of pneumonia COPD exacerbation and sepsis Ceftriaxone and doxycycline were initiated Chest x-ray performed on admission showed a right middle lobe and right lower lobe pneumonia Patient did not have fever or leukocytosis She had a remote history of cigarette smoking Chest CT performed following day showed right hilar mass and small right pleural effusion Oncology and pulmonary consult were obtained Patient underwent thoracentesis on 11/07; the fluid was bloody suggestive of an exudate Cytology and cultures are pending Echocardiogram was performed; it showed preserved left ventricular function and moderate diastolic dysfunction Patient's course has been uncomplicated; she was continued on IV antibiotics She is scheduled for bronchoscopy on Friday-Dr. Solo- Patient was chronically anticoagulated on Coumadin; it has been held as well as aspirin 11/10 Patient is still complaining at times of chest pains But in general she is she is clinically stable She has no fever no chills No wheezes CT of the chest was performed today showing improvement of the chest and bilateral hilar adenopathies Patient is scheduled for bronchoscopy tomorrow Reason For Visit: CHF COPD AND EXACERBATION, PNEUMONIA Physical Exam Vital Signs: Temp Pulse Resp BP Pulse Ox 98.3 F 64 20 167/43 H 95 11/10/17 20:02 11/10/17 20:46 11/10/17 20:02 11/10/17 20:02 11/10/17 20:02 Intake & Output 11/09/17 11/10/17 11/11/17 00:59 00:59 00:59 Intake Total 1670 1124 996 Output Total 200 Balance 1470 1124 996 Weight 72.3 kg 73.2 kg Results Laboratory Results: 11/04/17 05:39 11/06/17 06:30 11/04/17 11/04/17 11/05/17 14:36 20:35 02:44 Troponin I 0.016 0.012 < 0.012 Impressions: Chest X-Ray 11/07/17 00:00 IMPRESSION: STABLE APPEARANCE. NO PNEUMOTHORAX OR OTHER ACUTE RADIOGRAPHIC FINDING IN THE CHEST. Thoracentesis Ultrasound 11/07/17 08:58 IMPRESSION: SUCCESSFUL THORACENTESIS USING ULTRASOUND GUIDANCE. Chest CT 11/10/17 00:00 IMPRESSION: Overall improved appearance of the right lung. Residual trace bilateral pleural effusions and bilateral hilar adenopathy. Assessment & Plan - Diagnosis (1) COPD exacerbation Is this a current diagnosis for this admission?: Yes (2) Right lower lobe pneumonia Qualifiers: Pneumonia type: due to unspecified organism Qualified Code(s): J18.1 - Lobar pneumonia, unspecified organism Is this a current diagnosis for this admission?: Yes (3) History of CHF (congestive heart failure) Is this a current diagnosis for this admission?: Yes (4) Chronic anticoagulation Is this a current diagnosis for this admission?: Yes (5) Mass of right lung Is this a current diagnosis for this admission?: Yes (6) Pleural effusion, right Is this a current diagnosis for this admission?: Yes (7) Uncontrolled hypertension Is this a current diagnosis for this admission?: Yes - Time Time Spent with patient: continue present management as per Dr. Solo Patient will undergo bronchoscopy Patient may be discharged home after procedure pending pathology reports if stable resume anticoagulation after discharge Time Spent with patient: 25-34 minutes
[2017-11-11] MEDS: DOXYCYCLINE HYCLATE 100 MG TABLET PO SCH (05:01)
[2017-11-11] MEDS: LANSOPRAZOLE 30 MG TAB.RAP.DR PO SCH (05:01)
[2017-11-11] MEDS: PREGABALIN 100 MG CAPSULE PO SCH ×3 (05:01→21:28)
[2017-11-11] MEDS: CEFUROXIME 500 MG TABLET PO SCH ×2 (05:01→17:45)
[2017-11-11] MEDS: METOPROLOL TARTRATE 50 MG TABLET PO SCH ×2 (09:10→21:29)
[2017-11-11] MEDS ORDERED: LIDOCAINE 2% JELLY 30 ML TUBE ONE (09:17)
[2017-11-11] MEDS ORDERED: LIDOCAINE 2% INJ (20 MG/ML) 20 ML MDV ONE (09:17)
[2017-11-11] MEDS ORDERED: LIDOCAINE 4% INJ/PF (40 MG/ML) 5 ML AMPUL ONE (09:17)
[2017-11-11] MEDS ORDERED: ALBUTEROL SULFATE 0.083% NEB 2.5 MG/3 ML AMPUL NEB ONE ×2 (09:18→10:23)
[2017-11-11] MEDS ORDERED: NALOXONE HCL INJ/PF 0.4 MG/1 ML SDV ONE (09:18)
[2017-11-11] MEDS ORDERED: FLUMAZENIL INJ 0.5 MG/5 ML VIAL ONE (09:19)
[2017-11-11] MEDS ORDERED: EPINEPHRINE INJ 1 MG/10 ML DISP.SYRIN ONE (09:20)
[2017-11-11] MEDS: LEVALBUTEROL HCL NEB 1.25 MG/3 ML AMPUL NEB PRN (09:48)
[2017-11-11] MEDS: MIDAZOLAM 2 MG/2 ML INJ ONE ×2 (10:45→11:15)
[2017-11-11] MEDS: FENTANYL CITRATE INJ/PF 100 MCG/2 ML AMPUL ONE ×2 (11:00→11:05)
--- NOTE | 2017-11-11 12:55 | RADIOLOGY REPORT (SQ) ---
EXAM DESCRIPTION: CHEST SINGLE VIEW COMPLETED DATE/TIME: 11/11/2017 12:46 pm REASON FOR STUDY: s/p bronch COMPARISON: CT chest 11/10/2017, 11/04/2017 Chest films 11/07/2017, 11/03/2017 EXAM PARAMETERS: NUMBER OF VIEWS: One view. TECHNIQUE: Single frontal radiographic view of the chest acquired. RADIATION DOSE: NA LIMITATIONS: None. FINDINGS: LUNGS AND PLEURA: Airspace disease in the right mid lung has significantly improved compar ed to 11/03/2017. No gross pleural effusions or pneumothorax. No pulmonary edema. MEDIASTINUM AND HILAR STRUCTURES: No masses. Contour normal. HEART AND VASCULAR STRUCTURES: Stable moderate cardiomegaly. BONES: Osteoporotic without acute change HARDWARE: Right-sided pacemaker, lower cervical fusion hardware OTHER: No other significant finding. IMPRESSION: Clearing of the right-sided airspace disease compared to 11/03/2017. Stable cardiomegaly TECHNICAL DOCUMENTATION: JOB ID: [id number] [employer]- All Rights Reserved Reading location - IP/workstation name: [email or web address]
--- NOTE | 2017-11-11 13:07 | RADIOLOGY REPORT (SQ) ---
EXAM DESCRIPTION: NO CHARGE FLUORO COMPLETED DATE/TIME: 11/11/2017 12:46 pm REASON FOR STUDY: S/P BRONCH/LUNG BX COMPARISON: None. FLUOROSCOPY TIME: 1.1 minute. 7 images saved to PACS. TECHNIQUE: Intra-operative images acquired during surgical procedure to evaluate progress. NUMBER OF IMAGES: 7 images. LIMITATIONS: None. FINDINGS: Images of the chest acquired during bronchoscopy and biopsy. IMPRESSION: IMAGE(S) OBTAINED DURING PROCEDURE. COMMENT: Quality ID [id number]: Final reports for procedures using fluoroscopy that document radiation exposure indices, or exposure time and number of fluorographic images (if radiation exposure indices are not available) Please consult full operative report of the attending physician for description of the procedure. TECHNICAL DOCUMENTATION: JOB ID: [id number] [employer]- All Rights Reserved Reading location - IP/workstation name: [email or web address] <Electronically signed by ABE ORTIZ MD in [place]> 11/11/17 [id number] MTDD
--- NOTE | 2017-11-11 14:01 | PDOC PROGRESS REPORT ---
Subjective Progress Note for:: 11/11/17 Subjective:: Patient was admitted with nausea vomiting diarrhea as well as nonproductive cough and she was found to have pneumonia as well as COPD exacerbation and sepsis. Chest x-ray revealed a right middle lobe and right lower lobe pneumonia and a CT scan of the chest revealed a right hilar mass and small right pleural effusion. She is currently scheduled for a biopsy today. She also had thoracentesis done on November 07 with aspiration of bloody fluid. She has been on IV antibiotics since admission is chronically anticoagulated which is currently being held due to the dimensions. She had no complaints on my evaluation today she was willing to go for her biopsy. Next Reason For Visit: CHF COPD AND EXACERBATION, PNEUMONIA Physical Exam Vital Signs: Temp Pulse Resp BP Pulse Ox 97.7 F 63 20 148/38 H 88 L 11/11/17 12:19 11/11/17 12:19 11/11/17 12:19 11/11/17 12:19 11/11/17 12:19 Intake & Output 11/10/17 11/11/17 11/12/17 06:59 06:59 06:59 Intake Total 779 1296 800 Balance 779 1296 800 General appearance: PRESENT: no acute distress, cooperative Head exam: PRESENT: atraumatic Eye exam: PRESENT: conjunctiva pink, EOMI, PERRLA. ABSENT: scleral icterus Ear exam: PRESENT: normal external ear exam Neck exam: ABSENT: carotid bruit, JVD, lymphadenopathy, thyromegaly Respiratory exam: PRESENT: clear to auscultation [place]. ABSENT: rales, rhonchi, wheezes Pulses: PRESENT: normal dorsalis pedis pul Rectal exam: PRESENT: deferred Extremities exam: PRESENT: full ROM. ABSENT: calf tenderness, clubbing, pedal edema Musculoskeletal exam: PRESENT: ambulatory Neurological exam: PRESENT: alert, awake, oriented to person, oriented to place , oriented to time, oriented to situation, CN II-XII grossly intact. ABSENT: motor sensory deficit Psychiatric exam: PRESENT: appropriate affect, normal mood. ABSENT: homicidal ideation, suicidal ideation Skin exam: PRESENT: dry, intact, warm. ABSENT: cyanosis, rash Results Laboratory Results: 11/04/17 05:39 11/06/17 06:30 11/07/17 11:12 Pleural Fluid Gram Stain - Final 11/07/17 11:12 Pleural Fluid Body Fluid Culture - Final NO AEROBIC OR ANAEROBIC ORGANISMS RECOVERED 11/04/17 11/04/17 11/05/17 14:36 20:35 02:44 Troponin I 0.016 0.012 < 0.012 Impressions: Thoracentesis Ultrasound 11/07/17 08:58 IMPRESSION: SUCCESSFUL THORACENTESIS USING ULTRASOUND GUIDANCE. Chest CT 11/10/17 00:00 IMPRESSION: Overall improved appearance of the right lung. Residual trace bilateral pleural effusions and bilateral hilar adenopathy. Fluoroscopy 11/11/17 00:00 IMPRESSION: IMAGE(S) OBTAINED DURING PROCEDURE. Chest X-Ray 11/11/17 11:31 IMPRESSION: Clearing of the right-sided airspace disease compared to 11/03/2017. Stable cardiomegaly Assessment & Plan - Time Time Spent with patient: 15-24 minutes Medications reviewed and adjusted accordingly: Yes Anticipated discharge: Home Within: within 72 hours - Inpatient Certification Based on my medical assessment, after consideration of the patient's comorbidities, presenting symptoms, or acuity I expect that the services needed warrant INPATIENT care.: Yes Medical Necessity: Need for IV Antibiotics, Need for Surgery - Plan Summary Plan Summary: Right lower lobe pneumonia community-acquired currently on intravenous antibiotics. It is possible she may have a postobstructive pneumonia she was found to have a right hilar mass 2. Right lung mass scheduled for a biopsy today. We will follow-up on results 3. Acute COPD exacerbation currently on bronchodilators 4. Right pleural effusion status post thoracentesis follow-up with resolved 5. Hypertensive urgency. Blood pressure improved 6. Chronic anticoagulation with Coumadin currently on hold 7. History of CHF currently compensated patient is euvolemic
[2017-11-11] MEDS: OMEGA-3 ACID ETHYL ESTERS 1 GM CAPSULE PO SCH (14:14)
[2017-11-11] MEDS: FAMOTIDINE 20 MG TABLET PO SCH ×2 (14:15→17:45)
[2017-11-11] MEDS: CYANOCOBALAMIN (VITAMIN B-12) 1,000 MCG TABLET PO SCH (14:15)
[2017-11-11] MEDS: DOCUSATE SODIUM 100 MG CAPSULE PO SCH (14:15)
[2017-11-11] MEDS: CHOLECALCIFEROL (D3) 1,000 UNIT TABLET PO SCH (14:15)
[2017-11-11] MEDS: AMLODIPINE BESYLATE 10 MG TABLET PO SCH (14:16)
[2017-11-11] MEDS: TIOTROPIUM BROMIDE DPI 5 CAP/KIT (18 MCG/CAP) IH SCH (14:21)
[2017-11-11] MEDS: VALSARTAN 160 MG TABLET PO SCH (14:33)
[2017-11-11] MEDS: SOTALOL HCL 120 MG PO SCH ×2 (14:38→21:30)
[2017-11-11] MEDS: HYDRALAZINE HCL 25 MG TABLET PO SCH ×2 (14:38→21:29)
[2017-11-11 15:19] LABS: FLUID TYPE BRONCHIAL WASH
[2017-11-11 15:22] LABS: FLUID APPEARANCE TURBID; FLUID COLOR RED; FLUID VISCOSITY LIQUID
--- NOTE | 2017-11-11 19:18 | PDOC PROGRESS REPORT ---
Subjective Progress Note for:: 11/11/17 Subjective:: Denies any hemoptysisFeel okay status post bronchoscopy Reason For Visit: CHF COPD AND EXACERBATION, PNEUMONIA Physical Exam Vital Signs: Temp Pulse Resp BP Pulse Ox 98.0 F 62 18 158/49 H 82 L 11/11/17 08:37 11/11/17 11:55 11/11/17 11:55 11/11/17 11:55 11/11/17 11:55 Intake & Output 11/10/17 11/11/17 11/12/17 06:59 06:59 06:59 Intake Total 779 1296 Balance 779 1296 General appearance: PRESENT: no acute distress, cooperative, disheveled, obese, well-developed Head exam: PRESENT: atraumatic, normocephalic Eye exam: PRESENT: conjunctiva pale, EOMI. ABSENT: nystagmus, periorbital swelling, scleral icterus Mouth exam: PRESENT: moist, neck supple, tongue midline Neck exam: ABSENT: carotid bruit, JVD, lymphadenopathy, thyromegaly, tracheal deviation, tracheostomy Respiratory exam: PRESENT: decreased breath sounds, prolonged expiratory phas, rales, rhonchi, unlabored. ABSENT: retraction, stridor, tachypnea Cardiovascular exam: PRESENT: RRR, +S1, +S2. ABSENT: tachycardia Pulses: PRESENT: normal radial pulses GI/Abdominal exam: PRESENT: diminished bowel sounds, soft Extremities exam: ABSENT: calf tenderness, clubbing, full ROM, joint swelling Musculoskeletal exam: ABSENT: deformity, dislocation Neurological exam: PRESENT: alert, awake Skin exam: PRESENT: dry, warm Results Laboratory Results: 11/04/17 05:39 11/06/17 06:30 11/07/17 11:12 Pleural Fluid Gram Stain - Final 11/07/17 11:12 Pleural Fluid Body Fluid Culture - Final NO AEROBIC OR ANAEROBIC ORGANISMS RECOVERED 11/04/17 11/04/17 11/05/17 14:36 20:35 02:44 Troponin I 0.016 0.012 < 0.012 Impressions: Chest X-Ray 11/07/17 00:00 IMPRESSION: STABLE APPEARANCE. NO PNEUMOTHORAX OR OTHER ACUTE RADIOGRAPHIC FINDING IN THE CHEST. Thoracentesis Ultrasound 11/07/17 08:58 IMPRESSION: SUCCESSFUL THORACENTESIS USING ULTRASOUND GUIDANCE. Chest CT 11/10/17 00:00 IMPRESSION: Overall improved appearance of the right lung. Residual trace bilateral pleural effusions and bilateral hilar adenopathy. Assessment & Plan - Diagnosis (1) Chronic anticoagulation Is this a current diagnosis for this admission?: Yes Plan: Status post bronchoscopy resume anticoagulation (2) Mass of right lung Is this a current diagnosis for this admission?: Yes Plan: Some abnormalities noted please see bronchoscopy report (3) Pleural effusion, right Is this a current diagnosis for this admission?: Yes (4) Respiratory distress Is this a current diagnosis for this admission?: Yes Plan: Clinically Without complaints SaO2 88-93% on 2 L nasal cannula
--- NOTE | 2017-11-11 19:23 | PDOC CONSULTATION ---
Consultation Consult Date: 11/05/17 Attending physician:: ELIJAH ENG Consult reason:: Lung mass History of Present Illness Admission Date/PCP: 11/03/17 23:50 History of Present Illness: SULLY ESCALANTE is a 82 year old female Complains increasing shortness of breath and a cough that has persisted over the last 3-4 days cough is usually dry But occasionally productive of some clear phlegm she denies hemoptysis PPD status unknown she has no history of chronic lung disease as a child or adolescent she admits to exposure large amounts of smoke as a child as well as an adult.She has no significant occupational exposure to potential respiratory toxins no pets no recent travel she has occasional tightness in her chest sleeps on 3-4 pillows at 45 angle frequent PND frequent nocturnal cough admits to occasions to the recurring edema admits to snoring restless sleep nocturia 2-3 times per night unrestful sleep and excessive daytime somnolence. Past Medical History Cardiac Medical History: Reports: Coronary Artery Disease, Hyperlipidema, Hypertension Denies: Myocardial Infarction Pulmonary Medical History: Reports: Asthma, Chronic Obstructive Pulmonary Disease (COPD) Denies: Bronchitis, Pneumonia Neurological Medical History: Denies: Seizures GI Medical History: Reports: Gastroesophageal Reflux Disease Musculoskeltal Medical History: Reports: Arthritis Hematology: Denies: Anemia Past Surgical History Past Surgical History: Reports: Orthopedic Surgery - cervical fusion, Pacemaker Social History Lives with: Family Smoking Status: Former Smoker Passive smoke exposure as: Both Frequency of Alcohol Use: None Hx Prescription Drug Abuse: No Do you have pets?: No Have you had any respiratory illnesses as a child?: No Have you been exposed to any sick contacts recently?: No Have you had any recent respiratory illnesses?: No Have you travelled outside of [facility] in the past 12 months?: No - Advance Directive Resuscitation Status: Full Code Family History Family History: Other - Unobtainable Parental Family History Reviewed: Yes Children Family History Reviewed: Yes Sibling(s) Family History Reviewed.: Yes Medication/Allergy Home Medications: Albuterol Sulfate [Ventolin HFA MDI 18 GM] 1 puff IH DAILY 11/04/17 Amlodipine Besylate [Norvasc 10 mg Tablet] 10 mg PO DAILY 11/04/17 Aspirin [Ecotrin 81 mg EC Tablet] 81 mg PO DAILY 11/04/17 Atorvastatin Calcium [Lipitor 40 mg Tablet] 40 mg PO QHS 11/04/17 Docusate Sodium [Colace 100 mg Capsule] 100 mg PO DAILY 11/04/17 Lisinopril [Prinivil 40 mg Tablet] 40 mg PO DAILY 11/04/17 Metoprolol Tartrate [Lopressor 100 mg Tablet] 100 mg PO Q12 11/04/17 Sweeny-3 Fatty Acids/Fish Oil [Fish Oil 1,000 mg Capsule] 1,000 mg PO DAILY 11/04 Omeprazole 40 mg PO DAILY 11/04/17 Sotalol HCl [Sotalol AF] 120 mg PO Q12 11/04/17 Tiotropium [place] [Spiriva Handihaler 5 Cap/Kit (18 Mcg/Cap)] 1 puff IH DAILY 11/04/17 Valsartan [Diovan] 320 mg PO DAILY 11/04/17 Vit C/Vit E AC/Lut/Copper/Zinc [Preservision Lutein Softgel] 1 cap PO TID Warfarin Sodium [Coumadin 2 mg Tablet] 4 mg PO DAILY 11/04/17 Benzonatate [Tessalon Perles 100 mg Capsule] 100 mg PO Q8HP PRN 11/05/17 Cholecalciferol (Vitamin D3) [Vitamin D3 1000 Unit Tablet] 1,000 unit PO DAILY 11/05/17 Cyanocobalamin (Vitamin B-12) [Vitamin B-12] 2,500 mcg SL DAILY 11/05/17 Hydralazine HCl [Apresoline 25 mg Tablet] 25 g PO TID 11/05/17 Pregabalin [Lyrica 100 mg Capsule] 100 mg PO Q8 11/05/17 Raloxifene HCl [Evista 60 mg Tablet] 60 mg PO DAILY 11/05/17 Warfarin Sodium [Coumadin 2 mg Tablet] 6 mg PO MO@1000 11/05/17 Allergies/Adverse Reactions: Penicillins Allergy (Mild, Verified 11/03/17 21:59) Hives celecoxib Allergy (Verified 11/03/17 21:59) Physical Exam Vital Signs: Temp Pulse Resp BP Pulse Ox 98.6 F 72 16 147/58 H 96 11/05/17 15:51 11/05/17 15:51 11/05/17 15:51 11/05/17 15:51 11/05/17 15:51 Intake & Output 11/04/17 11/05/1711/06/18 06:59 06:59 06:59 Intake Total 210 1780 100 Output Total 800 Balance 210 980 100 Weight 76.6 kg 77.2 kg General appearance: PRESENT: no acute distress, cooperative, disheveled, obese Head exam: PRESENT: atraumatic, normocephalic Eye exam: PRESENT: conjunctiva pale, EOMI. ABSENT: nystagmus, periorbital swelling, scleral icterus Mouth exam: PRESENT: dry mucosa, neck supple, tongue midline Neck exam: ABSENT: carotid bruit, JVD, lymphadenopathy, thyromegaly, tracheal deviation, tracheostomy Respiratory exam: PRESENT: decreased breath sounds, prolonged expiratory phas, rales, rhonchi, unlabored. ABSENT: retraction, stridor Cardiovascular exam: PRESENT: RRR, +S1, +S2 Pulses: PRESENT: normal radial pulses GI/Abdominal exam: PRESENT: diminished bowel sounds, soft Extremities exam: ABSENT: calf tenderness, clubbing Musculoskeletal exam: ABSENT: deformity, dislocation Neurological exam: PRESENT: awake Skin exam: PRESENT: dry, warm Results Laboratory Results: 11/04/17 05:39 11/05/17 02:44 11/05/17 02:44 Sodium 133.9 L Potassium 4.1 Chloride 100 Carbon Dioxide 25 Anion Gap 9 BUN 33 H Creatinine 0.98 Est GFR ( Amer) > 60 Est GFR (Non-Af Amer) 54 L Glucose 136 H Calcium 8.7 11/04/17 11/04/17 11/05/17 14:36 20:35 02:44 Troponin I 0.016 0.012 < 0.012 Impressions: Chest X-Ray 11/03/17 21:15 IMPRESSION: Right lower lobe or middle lobe pneumonia. Chest CT 11/04/17 16:16 IMPRESSION: 1. Right hilar mass with the appearance of a 15 mm right lower lobe mass and 2 adjacent smaller nodules. There is some degree of atelectasis in the right lower lobe. There is a moderate right pleural effusion. 2. Tracheobronchial calcifications. These can be seen with long-term warfarin therapy. Assessment & Plan - Diagnosis (1) Chronic anticoagulation Is this a current diagnosis for this admission?: Yes Plan: Hold anticoagulant anticoagulation reversed for thoracentesis (2) Mass of right lung Is this a current diagnosis for this admission?: Yes Plan: Repeat CT scan post thoracentesis if necessary scheduled for fiberoptic (3) Pleural effusion, right Is this a current diagnosis for this admission?: Yes Plan: Thoracentesis (4) Respiratory distress Is this a current diagnosis for this admission?: Yes Plan: Clinically Without complaints SaO2 88-93% on 2 L nasal cannula
--- NOTE | 2017-11-11 19:25 | PDOC PROGRESS REPORT ---
Subjective Progress Note for:: 11/06/17 Subjective:: Feels about the same Reason For Visit: CHF COPD AND EXACERBATION, PNEUMONIA Physical Exam Vital Signs: Temp Pulse Resp BP Pulse Ox 99.8 F 72 20 136/49 H 95 11/06/17 19:47 11/06/17 19:47 11/06/17 19:47 11/06/17 19:47 11/06/17 19:47 Intake & Output 11/05/17 11/06/17 11/07/17 06:59 06:59 06:59 Intake Total 1780 1074 1441 Output Total 800 1200 Balance 980 -126 1441 Weight 77.2 kg General appearance: PRESENT: no acute distress, cooperative, disheveled, obese Head exam: PRESENT: atraumatic, normocephalic Eye exam: PRESENT: conjunctiva pale, EOMI. ABSENT: nystagmus, periorbital swelling, scleral icterus Mouth exam: PRESENT: dry mucosa, neck supple, tongue midline Neck exam: ABSENT: carotid bruit, JVD, lymphadenopathy, thyromegaly, tracheal deviation, tracheostomy Respiratory exam: PRESENT: decreased breath sounds, prolonged expiratory phas, rales, rhonchi, symmetrical, unlabored. ABSENT: retraction, stridor, tachypnea Cardiovascular exam: PRESENT: RRR, +S1 Pulses: PRESENT: normal radial pulses GI/Abdominal exam: PRESENT: diminished bowel sounds, soft Extremities exam: ABSENT: calf tenderness, clubbing, joint swelling Musculoskeletal exam: ABSENT: deformity, dislocation Neurological exam: PRESENT: awake Skin exam: PRESENT: dry, warm Results Laboratory Results: 11/04/17 05:39 11/06/17 06:30 11/06/17 06:30 Sodium 139.9 Potassium 3.8 Chloride 102 Carbon Dioxide 29 Anion Gap 9 BUN 20 Creatinine 0.63 Est GFR ( Amer) > 60 Est GFR (Non-Af Amer) > 60 Glucose 112 H Calcium 8.8 11/04/17 11/04/17 11/05/17 14:36 20:35 02:44 Troponin I 0.016 0.012 < 0.012 Impressions: Chest X-Ray 11/03/17 21:15 IMPRESSION: Right lower lobe or middle lobe pneumonia. Chest CT 11/04/17 16:16 IMPRESSION: 1. Right hilar mass with the appearance of a 15 mm right lower lobe mass and 2 adjacent smaller nodules. There is some degree of atelectasis in the right lower lobe. There is a moderate right pleural effusion. 2. Tracheobronchial calcifications. These can be seen with long-term warfarin therapy. Assessment & Plan - Diagnosis (1) Chronic anticoagulation Is this a current diagnosis for this admission?: Yes (2) Mass of right lung Is this a current diagnosis for this admission?: Yes Plan: Repeat CT scan post thoracentesis if necessary scheduled for fiberoptic (3) Pleural effusion, right Is this a current diagnosis for this admission?: Yes Plan: Thoracentesis (4) Respiratory distress Is this a current diagnosis for this admission?: Yes Plan: Clinically Without complaints SaO2 88-93% on 2 L nasal cannula
--- NOTE | 2017-11-11 19:27 | PDOC PROGRESS REPORT ---
Subjective Progress Note for:: 11/07/17 Reason For Visit: CHF COPD AND EXACERBATION, PNEUMONIA Physical Exam Vital Signs: Temp Pulse Resp BP Pulse Ox 97.3 F 59 L 16 147/41 H 99 11/10/17 07:23 11/10/17 07:23 11/10/17 07:23 11/10/17 07:23 11/10/17 07:23 Intake & Output 11/09/17 11/10/17 11/11/17 06:59 06:59 06:59 Intake Total 1776 779 Output Total 200 Balance 1576 779 Weight 73.2 kg General appearance: PRESENT: no acute distress, cooperative, disheveled Head exam: PRESENT: atraumatic, normocephalic Eye exam: PRESENT: conjunctiva pale, EOMI. ABSENT: nystagmus, periorbital swelling, PERRLA Mouth exam: PRESENT: moist, neck supple, tongue midline Neck exam: ABSENT: carotid bruit, JVD, lymphadenopathy, thyromegaly, tracheal deviation Respiratory exam: PRESENT: decreased breath sounds, prolonged expiratory phas, rales, rhonchi, symmetrical, unlabored. ABSENT: retraction, stridor, tachypnea Cardiovascular exam: PRESENT: RRR, +S1, +S2 Pulses: PRESENT: normal radial pulses GI/Abdominal exam: PRESENT: diminished bowel sounds, soft Extremities exam: ABSENT: calf tenderness, clubbing, joint swelling Musculoskeletal exam: ABSENT: deformity, dislocation Neurological exam: PRESENT: awake Skin exam: PRESENT: dry, warm Results Laboratory Results: 11/04/17 05:39 11/06/17 06:30 11/07/17 11:12 Pleural Fluid AFB Smear Concentration - Final 11/07/17 11:12 Pleural Fluid Acid Fast Bacilli Smear - Final 11/04/17 11/04/17 11/05/17 14:36 20:35 02:44 Troponin I 0.016 0.012 < 0.012 Impressions: Chest CT 11/04/17 16:16 IMPRESSION: 1. Right hilar mass with the appearance of a 15 mm right lower lobe mass and 2 adjacent smaller nodules. There is some degree of atelectasis in the right lower lobe. There is a moderate right pleural effusion. 2. Tracheobronchial calcifications. These can be seen with long-term warfarin therapy. Chest X-Ray 11/07/17 00:00 IMPRESSION: STABLE APPEARANCE. NO PNEUMOTHORAX OR OTHER ACUTE RADIOGRAPHIC FINDING IN THE CHEST. Thoracentesis Ultrasound 11/07/17 08:58 IMPRESSION: SUCCESSFUL THORACENTESIS USING ULTRASOUND GUIDANCE. Assessment & Plan - Diagnosis (1) Chronic anticoagulation Is this a current diagnosis for this admission?: Yes (2) Mass of right lung Is this a current diagnosis for this admission?: Yes Plan: Repeat CT scan post thoracentesis if necessary scheduled for fiberoptic (3) Pleural effusion, right Is this a current diagnosis for this admission?: Yes Plan: Thoracentesis (4) Respiratory distress Is this a current diagnosis for this admission?: Yes Plan: Clinically Without complaints SaO2 88-93% on 2 L nasal cannula
--- NOTE | 2017-11-11 19:29 | PDOC PROGRESS REPORT ---
Subjective Progress Note for:: 11/10/17 Subjective:: Awaiting for procedure Reason For Visit: CHF COPD AND EXACERBATION, PNEUMONIA Physical Exam Vital Signs: Temp Pulse Resp BP Pulse Ox 97.3 F 59 L 16 147/41 H 99 11/10/17 07:23 11/10/17 07:23 11/10/17 07:23 11/10/17 07:23 11/10/17 07:23 Intake & Output 11/09/17 11/10/17 11/11/17 06:59 06:59 06:59 Intake Total 1776 779 Output Total 200 Balance 1576 779 Weight 73.2 kg General appearance: PRESENT: no acute distress, cooperative, disheveled, obese Head exam: PRESENT: atraumatic, normocephalic Eye exam: PRESENT: conjunctiva pale, EOMI. ABSENT: nystagmus, periorbital swelling, scleral icterus Mouth exam: PRESENT: moist, neck supple Neck exam: ABSENT: carotid bruit, JVD, lymphadenopathy, thyromegaly, tracheal deviation, tracheostomy Respiratory exam: PRESENT: decreased breath sounds, prolonged expiratory phas, rales, rhonchi, unlabored. ABSENT: retraction, stridor, tachypnea Cardiovascular exam: PRESENT: RRR, +S1, +S2 Pulses: PRESENT: normal radial pulses GI/Abdominal exam: PRESENT: diminished bowel sounds Extremities exam: ABSENT: calf tenderness, clubbing, joint swelling Musculoskeletal exam: ABSENT: deformity, dislocation Neurological exam: PRESENT: awake Skin exam: PRESENT: dry, warm Results Laboratory Results: 11/04/17 05:39 11/06/17 06:30 11/07/17 11:12 Pleural Fluid AFB Smear Concentration - Final 11/07/17 11:12 Pleural Fluid Acid Fast Bacilli Smear - Final 11/04/17 11/04/17 11/05/17 14:36 20:35 02:44 Troponin I 0.016 0.012 < 0.012 Impressions: Chest CT 11/04/17 16:16 IMPRESSION: 1. Right hilar mass with the appearance of a 15 mm right lower lobe mass and 2 adjacent smaller nodules. There is some degree of atelectasis in the right lower lobe. There is a moderate right pleural effusion. 2. Tracheobronchial calcifications. These can be seen with long-term warfarin therapy. Chest X-Ray 11/07/17 00:00 IMPRESSION: STABLE APPEARANCE. NO PNEUMOTHORAX OR OTHER ACUTE RADIOGRAPHIC FINDING IN THE CHEST. Thoracentesis Ultrasound 11/07/17 08:58 IMPRESSION: SUCCESSFUL THORACENTESIS USING ULTRASOUND GUIDANCE. Assessment & Plan - Diagnosis (1) Chronic anticoagulation Is this a current diagnosis for this admission?: Yes Plan: Hold anticoagulant anticoagulation reversed for thoracentesis (2) Mass of right lung Is this a current diagnosis for this admission?: Yes (3) Pleural effusion, right Is this a current diagnosis for this admission?: Yes Plan: Thoracentesis (4) Respiratory distress Is this a current diagnosis for this admission?: Yes Plan: Clinically Without complaints SaO2 88-93% on 2 L nasal cannula
--- NOTE | 2017-11-11 19:34 | Operative Report ---
Operative Report DATE OF SURGERY: 11/11/17 Operative Report: Patient kept n.p.o. 12 hours prior to procedure taken to the endoscopy suite where she was given a nebulizer of 2% lidocaine then her posterior oropharynx was sprayed down with her cane she was given 2 mg of Versed and 25 mg fentanyl and then using a T size bronchoscope her tracheobronchial tree was explored there were no abnormalities of the vocal cords trachea there is no splaying of the [place] the left mainstem bronchus left upper lobe left lower lobe and lingula all appear to be within normal limits .there were no abnormalities of the right mainstem bronchus the right upper lobe and right bronchus intermedius there was distinct irregular narrowing of the right middle lobe bronchus as well as the bronchus leading to the subsegments of the right lower lobe. multiple transbronchial biopsies were obtained from the right lower lobe and some needle biopsy biopsies were taken from the narrowed area of the orifice to the right middle lobe .patient tolerated procedure well her postprocedure SaO2 was 90% postprocedure chest x-ray did not demonstrate any pneumothorax.Lavage fluid and tissue sent to the lab for appropriate cultures and studies PREOPERATIVE DIAGNOSIS: R lung mass POSTOPERATIVE DIAGNOSIS: same OPERATION: Fiberoptic bronchoscopy with bronchoalveolar lavage transbronchial biopsies and Alex needle biopsies SURGEON: MONIQUE PALMA ANESTHESIA: Moderate Sedation TISSUE REMOVED OR ALTERED: R lower lobe lavage ;transbronchial biopsy and Alex needle biopsy COMPLICATIONS: none ESTIMATED BLOOD LOSS: 3 cc INTRAOPERATIVE FINDINGS: narrowing R middle lobe:sub- mucosal abnormalities R lower lobe
[2017-11-11] MEDS: ATORVASTATIN CALCIUM 40 MG TABLET PO SCH (21:29)
[2017-11-12] MEDS: PREGABALIN 100 MG CAPSULE PO SCH ×3 (05:08→21:12)
[2017-11-12] MEDS: CEFUROXIME 500 MG TABLET PO SCH ×2 (05:08→17:03)
[2017-11-12] MEDS: LANSOPRAZOLE 30 MG TAB.RAP.DR PO SCH (05:08)
[2017-11-12 06:05] LABS: ABSOLUTE EOSINOPHILS # (AUTO) 0.2 10^3/uL (0.0-0.6); ABSOLUTE LYMPHOCYTES (AUTO) 1.4 10^3/uL (0.5-4.7); ABSOLUTE MONOCYTES (AUTO) 0.7 10^3/uL (0.1-1.4); BASOPHILS % (AUTO) 0.3 % (0-2); EOSINOPHILS % (AUTO) 2.1 % (0-6); HEMATOCRIT 30.7 % (36.0-47.0); HEMOGLOBIN 10.2 g/dL (12.0-15.5); LYMPHOCYTES % (AUTO) 17.1 % (13-45); MEAN CORPUSCULAR HEMOGLOBIN 27.8 pg (27.0-33.4); MEAN CORPUSCULAR HGB CONC 33.2 g/dL (32.0-36.0); MEAN CORPUSCULAR VOLUME 84 fl (80-97); MONOCYTES % (AUTO) 8.2 % (3-13); PLATELET COUNT 252 10^3/uL (150-450); RED BLOOD COUNT 3.66 10^6/uL (3.72-5.28); RED CELL DISTRIBUTION WIDTH 15.9 % (11.5-14.0); SEGMENTED NEUTROPHILS % (AUTO) 72.3 % (42-78); TOTAL CELLS COUNTED % (AUTO) 100 %; WHITE BLOOD COUNT 8.3 10^3/uL (4.0-10.5)
[2017-11-12 06:27] LABS: ANION GAP 11 (5-19); BLOOD UREA NITROGEN 14 mg/dL (7-20); CARBON DIOXIDE 30 mmol/L (22-30); CHLORIDE 100 mmol/L (98-107); GLUCOSE 102 mg/dL (75-110); POTASSIUM 4.5 mmol/L (3.6-5.0); SODIUM 140.7 mmol/L (137-145)
[2017-11-12] MEDS: LEVALBUTEROL HCL NEB 1.25 MG/3 ML AMPUL NEB PRN (09:18)
[2017-11-12] MEDS: DOCUSATE SODIUM 100 MG CAPSULE PO SCH (09:36)
[2017-11-12] MEDS: TIOTROPIUM BROMIDE DPI 5 CAP/KIT (18 MCG/CAP) IH SCH (09:36)
[2017-11-12] MEDS: VALSARTAN 160 MG TABLET PO SCH (09:36)
[2017-11-12] MEDS: OMEGA-3 ACID ETHYL ESTERS 1 GM CAPSULE PO SCH (09:37)
[2017-11-12] MEDS: CYANOCOBALAMIN (VITAMIN B-12) 1,000 MCG TABLET PO SCH (09:37)
[2017-11-12] MEDS: CHOLECALCIFEROL (D3) 1,000 UNIT TABLET PO SCH (09:37)
[2017-11-12] MEDS: HYDRALAZINE HCL 25 MG TABLET PO SCH ×2 (09:37→21:12)
[2017-11-12] MEDS: FAMOTIDINE 20 MG TABLET PO SCH ×2 (09:38→17:03)
[2017-11-12] MEDS: METOPROLOL TARTRATE 50 MG TABLET PO SCH ×2 (09:38→21:11)
[2017-11-12] MEDS: SOTALOL HCL 120 MG PO SCH ×2 (09:38→21:15)
[2017-11-12] MEDS: AMLODIPINE BESYLATE 10 MG TABLET PO SCH (09:38)
--- NOTE | 2017-11-12 15:35 | PDOC PROGRESS REPORT ---
Subjective Subjective:: Patient was admitted with nausea vomiting diarrhea as well as nonproductive cough and she was found to have pneumonia as well as COPD exacerbation and sepsis. Chest x-ray revealed a right middle lobe and right lower lobe pneumonia and a CT scan of the chest revealed a right hilar mass and small right pleural effusion. She is currently scheduled for a biopsy today. She also had thoracentesis done on November 07 with aspiration of bloody fluid. She has been on IV antibiotics since admission is chronically anticoagulated which is currently being held due to the dimensions. Reason For Visit: CHF COPD AND EXACERBATION, PNEUMONIA Physical Exam Vital Signs: Temp Pulse Resp BP Pulse Ox 98.2 F 65 18 153/47 H 94 11/12/17 11:13 11/12/17 14:00 11/12/17 11:13 11/12/17 11:13 11/12/17 11:13 Pulse Oximeter Continuous Start: 11/12/17 10: 37 Freq: RTQ4 Status: Active Document 11/12/17 11:07 TPO (Rec: 11/12/17 11:07 TPO [email or web address]) Pulse Oximetry Assessment Oxygen Saturation (92-100) 95 Oxygen Flow Rate (L/min) 4 Oxygen Delivery Method Nasal Cannula Fraction of Inspired Oxygen (FIO2) 36 Equipment Usage Initial Set Up Continuous Pulse Oximeter 24 Hour Charge Charge Now Continuous SpO2 Machine # [id number] Intake & Output 11/11/17 11/12/17 11/13/17 06:59 06:59 06:59 Intake Total 1296 2755 829 Balance 1296 2755 829 General appearance: PRESENT: no acute distress Head exam: PRESENT: atraumatic Eye exam: PRESENT: conjunctiva pink, EOMI, PERRLA. ABSENT: scleral icterus Ear exam: PRESENT: normal external ear exam Neck exam: ABSENT: carotid bruit, JVD, lymphadenopathy, thyromegaly Respiratory exam: PRESENT: clear to auscultation [place]. ABSENT: rales, rhonchi, wheezes Cardiovascular exam: PRESENT: RRR. ABSENT: diastolic murmur, rubs, systolic murmur Pulses: PRESENT: normal dorsalis pedis pul GI/Abdominal exam: PRESENT: normal bowel sounds, soft. ABSENT: distended, guarding, mass, organolmegaly, rebound, tenderness Extremities exam: PRESENT: full ROM. ABSENT: calf tenderness, clubbing, pedal edema Neurological exam: PRESENT: alert, awake, oriented to person, oriented to place , oriented to time, oriented to situation, CN II-XII grossly intact. ABSENT: motor sensory deficit Results Laboratory Results: 11/12/17 05:20 11/12/17 05:20 11/11/17 11/12/17 11/12/17 11:20 05:20 05:20 WBC 8.3 RBC 3.66 L Hgb 10.2 L Hct 30.7 L MCV 84 MCH 27.8 MCHC 33.2 RDW 15.9 H Plt Count 252 Seg Neutrophils % 72.3 Lymphocytes % 17.1 Monocytes % 8.2 Eosinophils % 2.1 Basophils % 0.3 Absolute Neutrophils 6.0 Absolute Lymphocytes 1.4 Absolute Monocytes 0.7 Absolute Eosinophils 0.2 Absolute Basophils 0.0 Sodium 140.7 Potassium 4.5 Chloride 100 Carbon Dioxide 30 Anion Gap 11 BUN 14 Creatinine 0.64 Est GFR ( Amer) > 60 Est GFR (Non-Af Amer) > 60 Glucose 102 Calcium 9.0 Fluid Type BRONCHIAL WASH Fluid Source Fluid Color RED Fluid Appearance TURBID Fluid Viscosity LIQUID Fluid WBC 2433 Fluid RBC [id number] 11/04/17 11/04/17 11/05/17 14:36 20:35 02:44 Troponin I 0.016 0.012 < 0.012 Impressions: Thoracentesis Ultrasound 11/07/17 08:58 IMPRESSION: SUCCESSFUL THORACENTESIS USING ULTRASOUND GUIDANCE. Chest CT 11/10/17 00:00 IMPRESSION: Overall improved appearance of the right lung. Residual trace bilateral pleural effusions and bilateral hilar adenopathy. Fluoroscopy 11/11/17 00:00 IMPRESSION: IMAGE(S) OBTAINED DURING PROCEDURE. Chest X-Ray 11/11/17 11:31 IMPRESSION: Clearing of the right-sided airspace disease compared to 11/03/2017. Stable cardiomegaly Assessment & Plan - Time Time Spent with patient: 15-24 minutes Medications reviewed and adjusted accordingly: Yes Anticipated discharge: Home with Homehealth - Plan Summary Plan Summary: 1.Right lower lobe pneumonia community-acquired currently on intravenous antibiotics. Post bronchoscopy revealed no mass and biopsy so is revealing no significant findings. Cytology also reveals insufficient specimen for analysis 2. Right lung mass with negative findings on bronchoscopy 3. Acute COPD exacerbation currently on bronchodilators 4. Right pleural effusion status post thoracentesis resolved 5. Hypertensive urgency. Blood pressure improved 6. Chronic anticoagulation with Coumadin restarted 7. History of CHF currently compensated patient is euvolemic.
--- NOTE | 2017-11-12 16:12 | PDOC PROGRESS REPORT ---
Subjective Progress Note for:: 11/12/17 Subjective:: Patient without complaints Reason For Visit: CHF COPD AND EXACERBATION, PNEUMONIA Physical Exam Vital Signs: Temp Pulse Resp BP Pulse Ox 98.5 F 61 22 H 149/49 H 99 11/12/17 07:50 11/12/17 09:18 11/12/17 09:18 11/12/17 07:50 11/12/17 09:18 Intake & Output 11/11/17 11/12/17 11/13/17 06:59 06:59 06:59 Intake Total 1296 2755 Balance 1296 2755 General appearance: PRESENT: no acute distress, cooperative, disheveled, obese Head exam: PRESENT: atraumatic, normocephalic Eye exam: PRESENT: conjunctiva pale, EOMI. ABSENT: nystagmus, periorbital swelling, scleral icterus Mouth exam: PRESENT: moist, neck supple, tongue midline Neck exam: ABSENT: carotid bruit, JVD, lymphadenopathy, thyromegaly, tracheal deviation, tracheostomy Respiratory exam: PRESENT: decreased breath sounds, prolonged expiratory phas, rales, rhonchi, unlabored. ABSENT: retraction, stridor Cardiovascular exam: PRESENT: RRR, +S1, +S2 Pulses: PRESENT: normal radial pulses GI/Abdominal exam: PRESENT: diminished bowel sounds, soft Extremities exam: ABSENT: calf tenderness, clubbing, joint swelling, pedal edema Musculoskeletal exam: ABSENT: deformity, dislocation Neurological exam: PRESENT: awake Skin exam: PRESENT: dry, warm Results Laboratory Results: 11/12/17 05:20 11/12/17 05:20 11/11/17 11/12/17 11/12/17 11:20 05:20 05:20 WBC 8.3 RBC 3.66 L Hgb 10.2 L Hct 30.7 L MCV 84 MCH 27.8 MCHC 33.2 RDW 15.9 H Plt Count 252 Seg Neutrophils % 72.3 Lymphocytes % 17.1 Monocytes % 8.2 Eosinophils % 2.1 Basophils % 0.3 Absolute Neutrophils 6.0 Absolute Lymphocytes 1.4 Absolute Monocytes 0.7 Absolute Eosinophils 0.2 Absolute Basophils 0.0 Sodium 140.7 Potassium 4.5 Chloride 100 Carbon Dioxide 30 Anion Gap 11 BUN 14 Creatinine 0.64 Est GFR ( Amer) > 60 Est GFR (Non-Af Amer) > 60 Glucose 102 Calcium 9.0 Fluid Type BRONCHIAL WASH Fluid Source Fluid Color RED Fluid Appearance TURBID Fluid Viscosity LIQUID Fluid WBC 2433 Fluid RBC 452104 11/07/17 11:12 Pleural Fluid Gram Stain - Final 11/07/17 11:12 Pleural Fluid Body Fluid Culture - Final NO AEROBIC OR ANAEROBIC ORGANISMS RECOVERED 11/04/17 11/04/17 11/05/17 14:36 20:35 02:44 Troponin I 0.016 0.012 < 0.012 Impressions: Thoracentesis Ultrasound 11/07/17 08:58 IMPRESSION: SUCCESSFUL THORACENTESIS USING ULTRASOUND GUIDANCE. Chest CT 11/10/17 00:00 IMPRESSION: Overall improved appearance of the right lung. Residual trace bilateral pleural effusions and bilateral hilar adenopathy. Fluoroscopy 11/11/17 00:00 IMPRESSION: IMAGE(S) OBTAINED DURING PROCEDURE. Chest X-Ray 11/11/17 11:31 IMPRESSION: Clearing of the right-sided airspace disease compared to 11/03/2017. Stable cardiomegaly Assessment & Plan - Diagnosis (1) Chronic anticoagulation Is this a current diagnosis for this admission?: Yes Plan: Hold anticoagulant anticoagulation reversed for thoracentesis (2) Mass of right lung Is this a current diagnosis for this admission?: Yes Plan: Path reports from bronchoscopy nondiagnostic for any malignancy (3) Pleural effusion, right Is this a current diagnosis for this admission?: Yes Plan: Thoracentesis (4) Respiratory distress Is this a current diagnosis for this admission?: Yes
[2017-11-12] MEDS: ATORVASTATIN CALCIUM 40 MG TABLET PO SCH (21:11)
[2017-11-13] MEDS: CEFUROXIME 500 MG TABLET PO SCH ×2 (05:07→17:14)
[2017-11-13] MEDS: PREGABALIN 100 MG CAPSULE PO SCH ×3 (05:08→21:09)
[2017-11-13] MEDS: LANSOPRAZOLE 30 MG TAB.RAP.DR PO SCH (05:08)
[2017-11-13] MEDS: CYANOCOBALAMIN (VITAMIN B-12) 1,000 MCG TABLET PO SCH (09:11)
[2017-11-13] MEDS: CHOLECALCIFEROL (D3) 1,000 UNIT TABLET PO SCH (09:11)
[2017-11-13] MEDS: HYDRALAZINE HCL 25 MG TABLET PO SCH ×2 (09:11→21:09)
[2017-11-13] MEDS: OMEGA-3 ACID ETHYL ESTERS 1 GM CAPSULE PO SCH (09:11)
[2017-11-13] MEDS: AMLODIPINE BESYLATE 10 MG TABLET PO SCH (09:12)
[2017-11-13] MEDS: METOPROLOL TARTRATE 50 MG TABLET PO SCH ×2 (09:12→21:08)
[2017-11-13] MEDS: FAMOTIDINE 20 MG TABLET PO SCH ×2 (09:12→17:14)
[2017-11-13] MEDS: TIOTROPIUM BROMIDE DPI 5 CAP/KIT (18 MCG/CAP) IH SCH (09:12)
[2017-11-13] MEDS: SOTALOL HCL 120 MG PO SCH ×2 (09:12→21:04)
[2017-11-13] MEDS: VALSARTAN 160 MG TABLET PO SCH (09:15)
[2017-11-13] MEDS: DOCUSATE SODIUM 100 MG CAPSULE PO SCH (09:24)
--- NOTE | 2017-11-13 11:18 | PDOC PROGRESS REPORT ---
Subjective Progress Note for:: 11/13/17 Subjective:: Patient feeling better Reason For Visit: CHF COPD AND EXACERBATION, PNEUMONIA Physical Exam Vital Signs: Temp Pulse Resp BP Pulse Ox 98.6 F 68 18 136/43 H 98 11/13/17 04:26 11/13/17 08:37 11/13/17 08:37 11/13/17 04:26 11/13/17 08:37 Pulse Oximeter Continuous Start: 11/12/17 10: 37 Freq: RTQ4 Status: Active Document 11/13/17 08:37 TPO (Rec: 11/13/17 08:40 TPO [email or web address]) Pulse Oximetry Assessment Oxygen Saturation (92-100) 98 Oxygen Flow Rate (L/min) 2 Oxygen Delivery Method Nasal Cannula Fraction of Inspired Oxygen (FIO2) 28 Equipment Usage Equipment in Use Continuous SpO2 Machine # 7 Intake & Output 11/12/17 11/13/17 11/14/17 06:59 06:59 06:59 Intake Total 2755 1154 Balance 2755 1154 General appearance: PRESENT: no acute distress, cooperative, disheveled, obese Head exam: PRESENT: atraumatic, normocephalic Eye exam: PRESENT: conjunctiva pale, EOMI. ABSENT: nystagmus, periorbital swelling, scleral icterus Mouth exam: PRESENT: moist, neck supple, tongue midline Neck exam: ABSENT: carotid bruit, JVD, lymphadenopathy, thyromegaly, tracheal deviation, tracheostomy Respiratory exam: PRESENT: decreased breath sounds, prolonged expiratory phas, rales, rhonchi, unlabored. ABSENT: retraction, stridor, tachypnea Cardiovascular exam: PRESENT: RRR, +S1, +S2 Pulses: PRESENT: normal radial pulses GI/Abdominal exam: PRESENT: diminished bowel sounds, soft Extremities exam: ABSENT: calf tenderness, clubbing, joint swelling Musculoskeletal exam: ABSENT: deformity, dislocation Neurological exam: PRESENT: alert, awake Psychiatric exam: PRESENT: normal mood Skin exam: PRESENT: dry, warm Results Laboratory Results: 11/12/17 05:20 11/12/17 05:20 11/04/17 11/04/17 11/05/17 14:36 20:35 02:44 Troponin I 0.016 0.012 < 0.012 Impressions: Thoracentesis Ultrasound 11/07/17 08:58 IMPRESSION: SUCCESSFUL THORACENTESIS USING ULTRASOUND GUIDANCE. Chest CT 11/10/17 00:00 IMPRESSION: Overall improved appearance of the right lung. Residual trace bilateral pleural effusions and bilateral hilar adenopathy. Fluoroscopy 11/11/17 00:00 IMPRESSION: IMAGE(S) OBTAINED DURING PROCEDURE. Chest X-Ray 11/11/17 11:31 IMPRESSION: Clearing of the right-sided airspace disease compared to 11/03/2017. Stable cardiomegaly Assessment & Plan - Diagnosis (1) Chronic anticoagulation Is this a current diagnosis for this admission?: Yes Plan: Hold anticoagulant anticoagulation reversed for thoracentesis (2) Mass of right lung Is this a current diagnosis for this admission?: Yes Plan: Path reports from bronchoscopy nondiagnostic for any malignancy (3) Pleural effusion, right Is this a current diagnosis for this admission?: Yes Plan: Thoracentesis (4) Respiratory distress Is this a current diagnosis for this admission?: Yes
--- NOTE | 2017-11-13 15:43 | PDOC PROGRESS REPORT ---
Subjective Progress Note for:: 11/13/17 Subjective:: Patient was admitted with nausea vomiting diarrhea as well as nonproductive cough and she was found to have pneumonia as well as COPD exacerbation and sepsis. Chest x-ray revealed a right middle lobe and right lower lobe pneumonia and a CT scan of the chest revealed a right hilar mass and small right pleural effusion. She is currently scheduled for a biopsy today. She also had thoracentesis done on November 07 with aspiration of bloody fluid. She has been on IV antibiotics since admission is chronically anticoagulated. Pathology report noted. Will discuss with Pulm re next options. Reason For Visit: CHF COPD AND EXACERBATION, PNEUMONIA Physical Exam Vital Signs: Temp Pulse Resp BP Pulse Ox 98.4 F 59 L 16 146/48 H 96 11/13/17 11:17 11/13/17 11:17 11/13/17 11:17 11/13/17 11:17 11/13/17 11:26 Pulse Oximeter Continuous Start: 11/12/17 10: 37 Freq: RTQ4 Status: Active Document 11/13/17 11:26 TPO (Rec: 11/13/17 11:26 TPO [email or web address]) Pulse Oximetry Assessment Oxygen Saturation (92-100) 96 Oxygen Flow Rate (L/min) 1 Oxygen Delivery Method Nasal Cannula Fraction of Inspired Oxygen (FIO2) 24 Equipment Usage Equipment in Use Continuous SpO2 Machine # 7 Intake & Output 11/12/17 11/13/17 11/14/17 06:59 06:59 06:59 Intake Total 2755 1154 300 Balance 2755 1154 300 General appearance: PRESENT: no acute distress Head exam: PRESENT: atraumatic Eye exam: PRESENT: conjunctiva pink Neck exam: ABSENT: carotid bruit, JVD, lymphadenopathy, thyromegaly Respiratory exam: PRESENT: crackles, decreased breath sounds, rales, rhonchi, unlabored. ABSENT: clear to auscultation [place], wheezes Cardiovascular exam: PRESENT: RRR. ABSENT: diastolic murmur, rubs, systolic murmur Rectal exam: PRESENT: deferred Musculoskeletal exam: PRESENT: ambulatory Neurological exam: PRESENT: alert, awake, oriented to person, oriented to place , oriented to time Results Laboratory Results: 11/12/17 05:20 11/12/17 05:20 11/11/17 11:20 Bronchial Washings Chlamydia pneumoniae (PCR) - Final 11/11/17 11:20 Bronchial Washings AFB Smear Concentration - Final 11/11/17 11:20 Bronchial Washings Acid Fast Bacilli Smear - Final 11/04/17 11/04/17 11/05/17 14:36 20:35 02:44 Troponin I 0.016 0.012 < 0.012 Impressions: Thoracentesis Ultrasound 11/07/17 08:58 IMPRESSION: SUCCESSFUL THORACENTESIS USING ULTRASOUND GUIDANCE. Chest CT 11/10/17 00:00 IMPRESSION: Overall improved appearance of the right lung. Residual trace bilateral pleural effusions and bilateral hilar adenopathy. Fluoroscopy 11/11/17 00:00 IMPRESSION: IMAGE(S) OBTAINED DURING PROCEDURE. Chest X-Ray 11/11/17 11:31 IMPRESSION: Clearing of the right-sided airspace disease compared to 11/03/2017. Stable cardiomegaly Assessment & Plan - Time Time Spent with patient: 15-24 minutes Medications reviewed and adjusted accordingly: Yes Anticipated discharge: Home Within: within 72 hours - Plan Summary Plan Summary: 1.Right lower lobe pneumonia community-acquired currently on intravenous antibiotics. Post bronchoscopy revealed no mass and biopsy so is revealing no significant findings. Cytology also reveals insufficient specimen for analysis 2. Right lung mass with negative findings on bronchoscopy 3. Acute COPD exacerbation currently on bronchodilators 4. Right pleural effusion status post thoracentesis resolved 5. Hypertensive urgency. Blood pressure improved 6. Chronic anticoagulation with Coumadin 7. History of CHF currently compensated She is euvolemic.
[2017-11-13] MEDS ORDERED: WARFARIN SODIUM 2 MG TABLET PO SCH (18:48)
[2017-11-13] MEDS: ATORVASTATIN CALCIUM 40 MG TABLET PO SCH (21:07)
[2017-11-14] MEDS: CEFUROXIME 500 MG TABLET PO SCH ×2 (05:21→18:02)
[2017-11-14] MEDS: PREGABALIN 100 MG CAPSULE PO SCH ×3 (05:21→21:05)
[2017-11-14] MEDS: LANSOPRAZOLE 30 MG TAB.RAP.DR PO SCH (05:21)
[2017-11-14 05:58] LABS: INTERNATIONAL RATION (INR) 0.97; PROTHROMBIN TIME 13.4 SEC (11.4-15.4)
[2017-11-14] MEDS: FAMOTIDINE 20 MG TABLET PO SCH ×2 (09:42→18:02)
[2017-11-14] MEDS: OMEGA-3 ACID ETHYL ESTERS 1 GM CAPSULE PO SCH (09:42)
[2017-11-14] MEDS: VALSARTAN 160 MG TABLET PO SCH (09:42)
[2017-11-14] MEDS: HYDRALAZINE HCL 25 MG TABLET PO SCH ×2 (09:43→21:05)
[2017-11-14] MEDS: CHOLECALCIFEROL (D3) 1,000 UNIT TABLET PO SCH (09:43)
[2017-11-14] MEDS: AMLODIPINE BESYLATE 10 MG TABLET PO SCH (09:43)
[2017-11-14] MEDS: METOPROLOL TARTRATE 50 MG TABLET PO SCH ×2 (09:43→21:04)
[2017-11-14] MEDS: DOCUSATE SODIUM 100 MG CAPSULE PO SCH (09:43)
[2017-11-14] MEDS: CYANOCOBALAMIN (VITAMIN B-12) 1,000 MCG TABLET PO SCH (09:43)
[2017-11-14] MEDS: SOTALOL HCL 120 MG PO SCH ×2 (09:44→21:06)
[2017-11-14] MEDS ORDERED: TOBRAMYCIN SULFATE INJ 80 MG/2 ML VIAL NEB SCH (11:00)
[2017-11-14] MEDS ORDERED: TOBRAMYCIN SULFATE NEB 40 MG/ML 30 ML NEB ONE (12:00)
[2017-11-14] MEDS: TIOTROPIUM BROMIDE DPI 5 CAP/KIT (18 MCG/CAP) IH SCH (13:09)
--- NOTE | 2017-11-14 13:23 | PDOC PROGRESS REPORT ---
Subjective Progress Note for:: 11/14/17 Subjective:: Patient was admitted with nausea vomiting diarrhea as well as nonproductive cough and she was found to have pneumonia as well as COPD exacerbation and sepsis. Chest x-ray revealed a right middle lobe and right lower lobe pneumonia and a CT scan of the chest revealed a right hilar mass and small right pleural effusion. She is currently scheduled for a biopsy today. She also had thoracentesis done on November 07 with aspiration of bloody fluid. She has been on IV antibiotics since admission is chronically anticoagulated. Pathology report noted. Plan is for her to follow up with PCP [address] Solo in 4 weeks. No plan to repeat BAL at this time Reason For Visit: CHF COPD AND EXACERBATION, PNEUMONIA Physical Exam Vital Signs: Temp Pulse Resp BP Pulse Ox 98.4 F 68 18 172/57 H 97 11/14/17 05:08 11/14/17 05:08 11/14/17 05:08 11/14/17 05:08 11/14/17 12:00 Pulse Oximeter Continuous Start: 11/12/17 10: 37 Freq: RTQ4 Status: Active Document 11/14/17 12:00 JDR (Rec: 11/14/17 12:15 JDR [email or web address]) Pulse Oximetry Assessment Oxygen Saturation (92-100) 97 Oxygen Delivery Method Room Air Fraction of Inspired Oxygen (FIO2) 21 Equipment Usage Equipment in Use Continuous SpO2 Machine # 7 Intake & Output 11/13/17 11/14/17 11/15/17 06:59 06:59 06:59 Intake Total 1154 865 Balance 1154 865 General appearance: PRESENT: no acute distress Head exam: PRESENT: atraumatic Mouth exam: PRESENT: moist, tongue midline Respiratory exam: PRESENT: crackles, decreased breath sounds, rhonchi, tachypnea , wheezes Cardiovascular exam: PRESENT: RRR. ABSENT: diastolic murmur, rubs, systolic murmur GI/Abdominal exam: PRESENT: normal bowel sounds, soft. ABSENT: distended, guarding, mass, organolmegaly, rebound, tenderness Rectal exam: PRESENT: deferred Musculoskeletal exam: PRESENT: ambulatory Psychiatric exam: PRESENT: appropriate affect, normal mood. ABSENT: homicidal ideation, suicidal ideation Results Laboratory Results: 11/12/17 05:20 11/12/17 05:20 11/11/17 11:20 Bronchial Washings Gram Stain - Final 11/11/17 11:20 Bronchial Washings Fungal Smear - Final 11/11/17 11:20 Bronchial Washings Fungal Smear - Final 11/11/17 11:20 Bronchial Washings Chlamydia pneumoniae (PCR) - Final 11/11/17 11:20 Bronchial Washings AFB Smear Concentration - Final 11/11/17 11:20 Bronchial Washings Acid Fast Bacilli Smear - Final 11/04/17 11/04/17 11/05/17 14:36 20:35 02:44 Troponin I 0.016 0.012 < 0.012 Impressions: Thoracentesis Ultrasound 11/07/17 08:58 IMPRESSION: SUCCESSFUL THORACENTESIS USING ULTRASOUND GUIDANCE. Chest CT 11/10/17 00:00 IMPRESSION: Overall improved appearance of the right lung. Residual trace bilateral pleural effusions and bilateral hilar adenopathy. Fluoroscopy 11/11/17 00:00 IMPRESSION: IMAGE(S) OBTAINED DURING PROCEDURE. Chest X-Ray 11/11/17 11:31 IMPRESSION: Clearing of the right-sided airspace disease compared to 11/03/2017. Stable cardiomegaly Assessment & Plan - Time Time Spent with patient: 15-24 minutes Medications reviewed and adjusted accordingly: Yes Anticipated discharge: Home Within: within 72 hours - Plan Summary Plan Summary: 1.Right lower lobe pneumonia community-acquired currently on Cefuroxime Day6 S/ p bronchoscopy - no mass and biopsy no significant findings. Cytology also reveals insufficient specimen for analysis No plans to repeat BAL 2. Right lung mass with negative findings on bronchoscopy 3. Acute COPD exacerbation currently on bronchodilators, no steroids 4. Right pleural effusion status post thoracentesis resolved 5. Hypertensive urgency. Blood pressure improved 6. Chronic anticoagulation with Coumadin, just restarted 11/13. Will give Lovenox bridg in interim. Anticipate DC in about 2 days 7. History of CHF currently compensated She is euvolemic.
[2017-11-14] MEDS ORDERED: WARFARIN SODIUM 3 MG TABLET PO SCH (18:00)
[2017-11-14] MEDS: TOBRAMYCIN SULFATE NEB 40 MG/ML 30 ML NEB SCH (20:30)
[2017-11-14] MEDS: ATORVASTATIN CALCIUM 40 MG TABLET PO SCH (21:05)
[2017-11-15] MEDS: LANSOPRAZOLE 30 MG TAB.RAP.DR PO SCH (05:02)
[2017-11-15] MEDS: CEFUROXIME 500 MG TABLET PO SCH ×2 (05:04→17:38)
[2017-11-15] MEDS: PREGABALIN 100 MG CAPSULE PO SCH ×3 (05:04→21:09)
[2017-11-15] MEDS: TOBRAMYCIN SULFATE NEB 40 MG/ML 30 ML NEB SCH ×2 (08:13→20:41)
[2017-11-15] MEDS: CYANOCOBALAMIN (VITAMIN B-12) 1,000 MCG TABLET PO SCH (09:33)
[2017-11-15] MEDS: CHOLECALCIFEROL (D3) 1,000 UNIT TABLET PO SCH (09:33)
[2017-11-15] MEDS: VALSARTAN 160 MG TABLET PO SCH (09:33)
[2017-11-15] MEDS: METOPROLOL TARTRATE 50 MG TABLET PO SCH ×2 (09:34→21:10)
[2017-11-15] MEDS: DOCUSATE SODIUM 100 MG CAPSULE PO SCH (09:34)
[2017-11-15] MEDS: HYDRALAZINE HCL 25 MG TABLET PO SCH ×2 (09:34→21:09)
[2017-11-15] MEDS: AMLODIPINE BESYLATE 10 MG TABLET PO SCH (09:34)
[2017-11-15] MEDS: FAMOTIDINE 20 MG TABLET PO SCH ×2 (09:35→17:38)
[2017-11-15] MEDS: OMEGA-3 ACID ETHYL ESTERS 1 GM CAPSULE PO SCH (09:35)
[2017-11-15] MEDS: TIOTROPIUM BROMIDE DPI 5 CAP/KIT (18 MCG/CAP) IH SCH (09:36)
[2017-11-15] MEDS: SOTALOL HCL 120 MG PO SCH ×2 (09:38→21:09)
--- NOTE | 2017-11-15 14:06 | PDOC PROGRESS REPORT ---
Subjective Progress Note for:: 11/15/17 Subjective:: Patient was admitted with nausea vomiting diarrhea as well as nonproductive cough and she was found to have pneumonia as well as COPD exacerbation and sepsis. Chest x-ray revealed a right middle lobe and right lower lobe pneumonia and a CT scan of the chest revealed a right hilar mass and small right pleural effusion. She is currently scheduled for a biopsy today. She also had thoracentesis done on November 07 with aspiration of bloody fluid. She has been on IV antibiotics since admission is chronically anticoagulated. Pathology report noted. Plan is for her to follow up with PCP [address] Solo in 4 weeks. No plan to repeat BAL at this time Reason For Visit: CHF COPD AND EXACERBATION, PNEUMONIA Physical Exam Vital Signs: Temp Pulse Resp BP Pulse Ox 98.2 F 60 16 136/52 H 98 11/15/17 11:00 11/15/17 11:00 11/15/17 11:00 11/15/17 11:00 11/15/17 11:00 Pulse Oximeter Continuous Start: 11/12/17 10: 37 Freq: RTQ4 Status: Active Document 11/15/17 08:15 JDR (Rec: 11/15/17 08:55 JDR [email or web address]) Pulse Oximetry Assessment Oxygen Saturation (92-100) 97 Oxygen Delivery Method Room Air Fraction of Inspired Oxygen (FIO2) 21 Equipment Usage Equipment in Use Continuous SpO2 Machine # 7 Intake & Output 11/14/17 11/15/17 11/16/17 06:59 06:59 06:59 Intake Total 865 1365 547 Balance 865 1365 547 General appearance: PRESENT: no acute distress Head exam: PRESENT: atraumatic Ear exam: PRESENT: normal external ear exam Neck exam: ABSENT: carotid bruit, JVD, lymphadenopathy, thyromegaly Respiratory exam: PRESENT: crackles, unlabored. ABSENT: accessory muscle use, chest wall tenderness, rales, tachypnea Cardiovascular exam: PRESENT: RRR. ABSENT: diastolic murmur, rubs, systolic murmur GI/Abdominal exam: PRESENT: normal bowel sounds, soft. ABSENT: distended, guarding, mass, organolmegaly, rebound, tenderness Rectal exam: PRESENT: deferred Extremities exam: PRESENT: full ROM. ABSENT: calf tenderness, clubbing, pedal edema Neurological exam: PRESENT: alert, awake, oriented to person, oriented to place , oriented to time Psychiatric exam: PRESENT: appropriate affect Results Laboratory Results: 11/12/17 05:20 11/12/17 05:20 11/11/17 11:20 Bronchial Washings Gram Stain - Final 11/11/17 11:20 Bronchial Washings Bronchial Washings Culture - Final C.albicans/C.dubliniensis Pseudomonas Aeruginosa Greatly Reduced Normal Verna 11/04/17 11/04/17 11/05/17 14:36 20:35 02:44 Troponin I 0.016 0.012 < 0.012 Impressions: Thoracentesis Ultrasound 11/07/17 08:58 IMPRESSION: SUCCESSFUL THORACENTESIS USING ULTRASOUND GUIDANCE. Chest CT 11/10/17 00:00 IMPRESSION: Overall improved appearance of the right lung. Residual trace bilateral pleural effusions and bilateral hilar adenopathy. Fluoroscopy 11/11/17 00:00 IMPRESSION: IMAGE(S) OBTAINED DURING PROCEDURE. Chest X-Ray 11/11/17 11:31 IMPRESSION: Clearing of the right-sided airspace disease compared to 11/03/2017. Stable cardiomegaly Assessment & Plan - Time Time Spent with patient: 15-24 minutes Medications reviewed and adjusted accordingly: Yes Anticipated discharge: Home Within: within 72 hours - Inpatient Certification Based on my medical assessment, after consideration of the patient's comorbidities, presenting symptoms, or acuity I expect that the services needed warrant INPATIENT care.: Yes Medical Necessity: Significant Comorbidiites Make Outpatient Treatment Too Risky , Risk of Complication if Not Cared For in Hospital - Plan Summary Plan Summary: 1.Right lower lobe pneumonia community-acquired currently on Cefuroxime Day6 S/ p bronchoscopy - no mass and biopsy no significant findings. Cytology also reveals insufficient specimen for analysis No plans to repeat BAL 2. Right lung mass with negative findings on bronchoscopy 3. Acute COPD exacerbation currently on bronchodilators, no steroids 4. Right pleural effusion status post thoracentesis resolved 5. Hypertensive urgency. Blood pressure improved 6. Chronic anticoagulation with Coumadin, just restarted 11/13. Will give Lovenox bridge in interim. Not completely sure why she is on Coumadin but appears to be Atrial Fibrillation Anticipate DC in about 2 days 7. History of CHF currently compensated 8. Encourage ambulation
[2017-11-15] MEDS ORDERED: ZOLPIDEM TARTRATE 5 MG TABLET PO PRN (16:01)
[2017-11-15] MEDS: WARFARIN SODIUM 3 MG TABLET PO SCH (17:37)
[2017-11-15] MEDS: ATORVASTATIN CALCIUM 40 MG TABLET PO SCH (21:10)
[2017-11-16 05:22] LABS: ABSOLUTE EOSINOPHILS # (AUTO) 0.1 10^3/uL (0.0-0.6); ABSOLUTE LYMPHOCYTES (AUTO) 1.8 10^3/uL (0.5-4.7); ABSOLUTE MONOCYTES (AUTO) 0.8 10^3/uL (0.1-1.4); BASOPHILS % (AUTO) 0.6 % (0-2); EOSINOPHILS % (AUTO) 1.9 % (0-6); HEMATOCRIT 29.6 % (36.0-47.0); HEMOGLOBIN 9.9 g/dL (12.0-15.5); LYMPHOCYTES % (AUTO) 26.3 % (13-45); MEAN CORPUSCULAR HGB CONC 33.4 g/dL (32.0-36.0); MEAN CORPUSCULAR VOLUME 84 fl (80-97); MONOCYTES % (AUTO) 11.8 % (3-13); PLATELET COUNT 236 10^3/uL (150-450); RED BLOOD COUNT 3.54 10^6/uL (3.72-5.28); SEGMENTED NEUTROPHILS % (AUTO) 59.4 % (42-78); TOTAL CELLS COUNTED % (AUTO) 100 %; WHITE BLOOD COUNT 6.8 10^3/uL (4.0-10.5)
[2017-11-16 05:44] LABS: ANION GAP 8 (5-19); BLOOD UREA NITROGEN 20 mg/dL (7-20); CALCIUM 9.2 mg/dL (8.4-10.2); CARBON DIOXIDE 29 mmol/L (22-30); CHLORIDE 101 mmol/L (98-107); GLUCOSE 102 mg/dL (75-110); SODIUM 137.8 mmol/L (137-145)
[2017-11-16 05:52] LABS: PROTHROMBIN TIME 13.7 SEC (11.4-15.4)
[2017-11-16] MEDS: PREGABALIN 100 MG CAPSULE PO SCH ×3 (06:25→21:04)
[2017-11-16] MEDS: LANSOPRAZOLE 30 MG TAB.RAP.DR PO SCH (06:25)
[2017-11-16] MEDS: CEFUROXIME 500 MG TABLET PO SCH (06:25)
[2017-11-16] MEDS: TOBRAMYCIN SULFATE NEB 40 MG/ML 30 ML NEB SCH ×2 (07:44→20:33)
[2017-11-16] MEDS: SOTALOL HCL 120 MG PO SCH ×2 (10:16→21:02)
[2017-11-16] MEDS: TIOTROPIUM BROMIDE DPI 5 CAP/KIT (18 MCG/CAP) IH SCH (10:16)
[2017-11-16] MEDS: ENOXAPARIN SODIUM INJ 80 MG/0.8 ML DISP.SYRIN SUBCUT SCH (10:17)
[2017-11-16] MEDS: VALSARTAN 160 MG TABLET PO SCH (10:18)
[2017-11-16] MEDS: FAMOTIDINE 20 MG TABLET PO SCH ×2 (10:18→17:31)
[2017-11-16] MEDS: CHOLECALCIFEROL (D3) 1,000 UNIT TABLET PO SCH (10:18)
[2017-11-16] MEDS: OMEGA-3 ACID ETHYL ESTERS 1 GM CAPSULE PO SCH (10:18)
[2017-11-16] MEDS: HYDRALAZINE HCL 25 MG TABLET PO SCH ×2 (10:19→21:03)
[2017-11-16] MEDS: CYANOCOBALAMIN (VITAMIN B-12) 1,000 MCG TABLET PO SCH (10:19)
[2017-11-16] MEDS: DOCUSATE SODIUM 100 MG CAPSULE PO SCH (10:19)
[2017-11-16] MEDS: AMLODIPINE BESYLATE 10 MG TABLET PO SCH (10:19)
[2017-11-16] MEDS: METOPROLOL TARTRATE 50 MG TABLET PO SCH ×2 (10:19→21:03)
--- NOTE | 2017-11-16 15:39 | PDOC PROGRESS REPORT ---
Subjective Progress Note for:: 11/16/17 Subjective:: Patient was admitted with nausea vomiting diarrhea as well as nonproductive cough and she was found to have pneumonia as well as COPD exacerbation and sepsis. Chest x-ray revealed a right middle lobe and right lower lobe pneumonia and a CT scan of the chest revealed a right hilar mass and small right pleural effusion. She is currently scheduled for a biopsy today. She also had thoracentesis done on November 07 with aspiration of bloody fluid. She has been on IV antibiotics since admission is chronically anticoagulated. Pathology report noted. Plan is for her to follow up with PCP [address] Solo in 4 weeks. No plan to repeat BAL at this time Reason For Visit: CHF COPD AND EXACERBATION, PNEUMONIA Physical Exam Vital Signs: Temp Pulse Resp BP Pulse Ox 97.8 F 66 17 137/57 H 99 11/16/17 12:00 11/16/17 14:00 11/16/17 12:00 11/16/17 12:00 11/16/17 12:00 Pulse Oximeter Continuous Start: 11/12/17 10: 37 Freq: RTQ4 Status: Active Document 11/16/17 08:00 J (Rec: 11/16/17 08:54 J [email or web address]) Pulse Oximetry Assessment Oxygen Saturation (92-100) 97 Oxygen Delivery Method Room Air Fraction of Inspired Oxygen (FIO2) 21 Equipment Usage Equipment in Use Continuous Pulse Oximeter 24 Hour Charge Charge Now Continuous SpO2 Machine # 7 Intake & Output 11/15/17 11/16/17 11/17/17 06:59 06:59 06:59 Intake Total 1365 1463 237 Balance 1365 1463 237 General appearance: PRESENT: no acute distress Head exam: PRESENT: atraumatic Eye exam: PRESENT: conjunctiva pink, EOMI, PERRLA. ABSENT: scleral icterus Neck exam: PRESENT: carotid bruit Respiratory exam: PRESENT: decreased breath sounds, rhonchi, unlabored. ABSENT : tachypnea Cardiovascular exam: PRESENT: RRR. ABSENT: diastolic murmur, rubs, systolic murmur Musculoskeletal exam: PRESENT: ambulatory Neurological exam: PRESENT: alert, awake, oriented to time, oriented to situation Psychiatric exam: PRESENT: appropriate affect Results Laboratory Results: 11/16/17 04:48 11/16/17 04:48 11/16/17 11/16/17 04:48 04:48 WBC 6.8 RBC 3.54 L Hgb 9.9 L Hct 29.6 L MCV 84 MCH 28.0 MCHC 33.4 RDW 16.0 H Plt Count 236 Seg Neutrophils % 59.4 Lymphocytes % 26.3 Monocytes % 11.8 Eosinophils % 1.9 Basophils % 0.6 Absolute Neutrophils 4.0 Absolute Lymphocytes 1.8 Absolute Monocytes 0.8 Absolute Eosinophils 0.1 Absolute Basophils 0.0 Sodium 137.8 Potassium 4.0 Chloride 101 Carbon Dioxide 29 Anion Gap 8 BUN 20 Creatinine 0.76 Est GFR ( Amer) > 60 Est GFR (Non-Af Amer) > 60 Glucose 102 Calcium 9.2 11/04/17 11/04/17 11/05/17 14:36 20:35 02:44 Troponin I 0.016 0.012 < 0.012 Impressions: Thoracentesis Ultrasound 11/07/17 08:58 IMPRESSION: SUCCESSFUL THORACENTESIS USING ULTRASOUND GUIDANCE. Chest CT 11/10/17 00:00 IMPRESSION: Overall improved appearance of the right lung. Residual trace bilateral pleural effusions and bilateral hilar adenopathy. Fluoroscopy 11/11/17 00:00 IMPRESSION: IMAGE(S) OBTAINED DURING PROCEDURE. Chest X-Ray 11/11/17 11:31 IMPRESSION: Clearing of the right-sided airspace disease compared to 11/03/2017. Stable cardiomegaly Assessment & Plan - Time Time Spent with patient: 15-24 minutes Medications reviewed and adjusted accordingly: Yes Anticipated discharge: Home Within: within 48 hours - Inpatient Certification Based on my medical assessment, after consideration of the patient's comorbidities, presenting symptoms, or acuity I expect that the services needed warrant INPATIENT care.: Yes Medical Necessity: Significant Comorbidiites Make Outpatient Treatment Too Risky - Plan Summary Plan Summary: 1.Right lower lobe pneumonia community-Complete course of Cefuroxime 2. Right lung mass with negative findings on bronchoscopy 3. Acute COPD exacerbation currently on bronchodilators, no steroids 4. Right pleural effusion status post thoracentesis resolved 5. Hypertensive urgency. Blood pressure improved 6. Chronic anticoagulation with Coumadin, just restarted 11/13. Cont Lovenox bridge in interim. Not completely sure why she is on Coumadin but appears to be Atrial Fibrillation INR 1. Coumadin has been increased to 5mg Anticipate DC in about 2 days 7. History of CHF currently compensated 8. Encourage ambulation
[2017-11-16] MEDS: WARFARIN SODIUM 3 MG TABLET PO SCH (17:31)
[2017-11-16] MEDS: ATORVASTATIN CALCIUM 40 MG TABLET PO SCH (21:03)
[2017-11-17 05:45] LABS: HEMOGLOBIN 9.9 g/dL (12.0-15.5); MEAN CORPUSCULAR HEMOGLOBIN 27.8 pg (27.0-33.4); MEAN CORPUSCULAR HGB CONC 32.9 g/dL (32.0-36.0); MEAN CORPUSCULAR VOLUME 84 fl (80-97); PLATELET COUNT 233 10^3/uL (150-450); RED BLOOD COUNT 3.55 10^6/uL (3.72-5.28); RED CELL DISTRIBUTION WIDTH 16.1 % (11.5-14.0); WHITE BLOOD COUNT 5.4 10^3/uL (4.0-10.5)
[2017-11-17 05:49] LABS: INTERNATIONAL RATION (INR) 1.15; PROTHROMBIN TIME 15.3 SEC (11.4-15.4)
[2017-11-17] MEDS: PREGABALIN 100 MG CAPSULE PO SCH ×3 (06:08→21:19)
[2017-11-17] MEDS: LANSOPRAZOLE 30 MG TAB.RAP.DR PO SCH (06:08)
[2017-11-17 06:34] LABS: APPEARANCE,URINE CLEAR; BILIRUBIN,URINE NEGATIVE (NEGATIVE); COLOR,URINE YELLOW; GLUCOSE, URINE NEGATIVE (NEGATIVE); KETONES,URINE NEGATIVE (NEGATIVE); LEUKOCYTE ESTERASE,URINE NEGATIVE (NEGATIVE); NITRITE,URINE NEGATIVE (NEGATIVE); PROTEIN,URINE NEGATIVE (NEGATIVE); URINE SPECIFIC GRAVITY 1.008; UROBILINOGEN,URINE NEGATIVE mg/dL (<2.0)
[2017-11-17] MEDS: TOBRAMYCIN SULFATE NEB 40 MG/ML 30 ML NEB SCH ×2 (08:42→19:57)
[2017-11-17] MEDS: DOCUSATE SODIUM 100 MG CAPSULE PO SCH (09:12)
[2017-11-17] MEDS: CHOLECALCIFEROL (D3) 1,000 UNIT TABLET PO SCH (09:12)
[2017-11-17] MEDS: FAMOTIDINE 20 MG TABLET PO SCH ×2 (09:12→18:29)
[2017-11-17] MEDS: OMEGA-3 ACID ETHYL ESTERS 1 GM CAPSULE PO SCH (09:12)
[2017-11-17] MEDS: ENOXAPARIN SODIUM INJ 80 MG/0.8 ML DISP.SYRIN SUBCUT SCH (09:12)
[2017-11-17] MEDS: AMLODIPINE BESYLATE 10 MG TABLET PO SCH (09:13)
[2017-11-17] MEDS: VALSARTAN 160 MG TABLET PO SCH (09:13)
[2017-11-17] MEDS: METOPROLOL TARTRATE 50 MG TABLET PO SCH ×2 (09:13→21:20)
[2017-11-17] MEDS: HYDRALAZINE HCL 25 MG TABLET PO SCH ×2 (09:13→21:19)
[2017-11-17] MEDS: SOTALOL HCL 120 MG PO SCH ×2 (09:16→21:20)
[2017-11-17] MEDS: TIOTROPIUM BROMIDE DPI 5 CAP/KIT (18 MCG/CAP) IH SCH (09:17)
[2017-11-17] MEDS: CYANOCOBALAMIN (VITAMIN B-12) 1,000 MCG TABLET PO SCH (09:18)
--- NOTE | 2017-11-17 10:56 | PDOC PROGRESS REPORT ---
Subjective Progress Note for:: 11/17/17 Subjective:: Patient was admitted with nausea vomiting diarrhea as well as nonproductive cough and she was found to have pneumonia as well as COPD exacerbation and sepsis. Chest x-ray revealed a right middle lobe and right lower lobe pneumonia and a CT scan of the chest revealed a right hilar mass and small right pleural effusion. She is currently scheduled for a biopsy today. She also had thoracentesis done on November 07 with aspiration of bloody fluid. She has been treated and completed IV antibiotics. She is chronically anticoagulated possibly for A fib and her INR remains low. She is on Lovenox bridge and Coumadin. If INR continues to rise patient can be dc home in 1 to 2 days Pathology report noted. Plan is for her to follow up with PCP [address] Solo in 4 weeks. No plan to repeat BAL at this time Reason For Visit: CHF COPD AND EXACERBATION, PNEUMONIA Physical Exam Vital Signs: Temp Pulse Resp BP Pulse Ox 98.0 F 68 17 137/56 H 97 11/17/17 08:28 11/17/17 08:42 11/17/17 08:42 11/17/17 08:28 11/17/17 08:42 Pulse Oximeter Continuous Start: 11/12/17 10: 37 Freq: RTQ4 Status: Active Document 11/17/17 08:42 [facility] (Rec: 11/17/17 10:51 [facility] [email or web address]) Pulse Oximetry Assessment Oxygen Saturation (92-100) 97 Oxygen Delivery Method Room Air Equipment Usage Equipment in Use Continuous Pulse Oximeter 24 Hour Charge Charge Now Continuous SpO2 Machine # 7 Intake & Output 11/16/17 11/17/17 11/18/17 06:59 06:59 06:59 Intake Total 1463 1157 Balance 1463 1157 General appearance: PRESENT: no acute distress, well-developed, well-nourished Head exam: PRESENT: atraumatic, normocephalic Eye exam: PRESENT: conjunctiva pink, EOMI, PERRLA. ABSENT: scleral icterus Ear exam: PRESENT: normal external ear exam Mouth exam: PRESENT: moist, tongue midline Neck exam: ABSENT: carotid bruit, JVD, lymphadenopathy, thyromegaly Respiratory exam: PRESENT: crackles, rhonchi. ABSENT: rales, tachypnea, wheezes Cardiovascular exam: PRESENT: RRR. ABSENT: diastolic murmur, rubs, systolic murmur Pulses: PRESENT: normal dorsalis pedis pul Vascular exam: PRESENT: normal capillary refill GI/Abdominal exam: PRESENT: normal bowel sounds, soft. ABSENT: distended, guarding, mass, organolmegaly, rebound, tenderness Rectal exam: PRESENT: deferred Extremities exam: PRESENT: full ROM. ABSENT: calf tenderness, clubbing, pedal edema Neurological exam: PRESENT: alert, awake, oriented to person, oriented to place , oriented to time, oriented to situation, CN II-XII grossly intact. ABSENT: motor sensory deficit Psychiatric exam: PRESENT: appropriate affect, normal mood. ABSENT: homicidal ideation, suicidal ideation Skin exam: PRESENT: dry, intact, warm. ABSENT: cyanosis, rash Results Laboratory Results: 11/17/17 05:11 11/16/17 04:48 11/17/17 11/17/17 05:11 06:16 WBC 5.4 RBC 3.55 L Hgb 9.9 L Hct 30.0 L MCV 84 MCH 27.8 MCHC 32.9 RDW 16.1 H Plt Count 233 Urine Color YELLOW Urine Appearance CLEAR Urine pH 7.0 Ur Specific [place] 1.008 Urine Protein NEGATIVE Urine Glucose (UA) NEGATIVE Urine Ketones NEGATIVE Urine Blood NEGATIVE Urine Nitrite NEGATIVE Ur Leukocyte Esterase NEGATIVE Urine WBC (Auto) 1 Urine RBC (Auto) 0 11/11/17 11:20 Bronchial Washings Fungal Smear - Final 11/11/17 11:20 Bronchial Washings Fungal Smear - Final 11/07/17 11:12 Pleural Fluid Viral Culture - Final 11/04/17 11/04/17 11/05/17 14:36 20:35 02:44 Troponin I 0.016 0.012 < 0.012 Impressions: Thoracentesis Ultrasound 11/07/17 08:58 IMPRESSION: SUCCESSFUL THORACENTESIS USING ULTRASOUND GUIDANCE. Chest CT 11/10/17 00:00 IMPRESSION: Overall improved appearance of the right lung. Residual trace bilateral pleural effusions and bilateral hilar adenopathy. Fluoroscopy 11/11/17 00:00 IMPRESSION: IMAGE(S) OBTAINED DURING PROCEDURE. Chest X-Ray 11/11/17 11:31 IMPRESSION: Clearing of the right-sided airspace disease compared to 11/03/2017. Stable cardiomegaly Assessment & Plan - Time Time Spent with patient: 15-24 minutes Medications reviewed and adjusted accordingly: Yes Anticipated discharge: Home Within: within 48 hours - Inpatient Certification Based on my medical assessment, after consideration of the patient's comorbidities, presenting symptoms, or acuity I expect that the services needed warrant INPATIENT care.: Yes Medical Necessity: Need for Nebulizer Therapy and Monitoring of Response, Risk of Complication if Not Cared For in Hospital - Plan Summary Plan Summary: 1.Right lower lobe pneumonia community-Completed course of Cefuroxime 2. Right lung mass with negative findings on bronchoscopy 3. Acute COPD exacerbation currently on bronchodilators, no steroids 4. Right pleural effusion status post thoracentesis resolved 5. Hypertensive urgency. Blood pressure improved 6. Chronic anticoagulation with Coumadin, just restarted 11/13. Cont Lovenox bridge in interim. Not completely sure why she is on Coumadin but appears to be Atrial Fibrillation INR 1.15, slowly creeping up. Coumadin dose has been increased to 5mg Anticipate DC in about 1-2 days 7. History of CHF currently compensated 8. Encourage ambulation
--- NOTE | 2017-11-17 11:44 | PDOC PROGRESS REPORT ---
Subjective Progress Note for:: 11/17/17 Subjective:: continues to improve Reason For Visit: CHF COPD AND EXACERBATION, PNEUMONIA Physical Exam Vital Signs: Temp Pulse Resp BP Pulse Ox 98.0 F 68 17 137/56 H 97 11/17/17 08:28 11/17/17 08:42 11/17/17 08:42 11/17/17 08:28 11/17/17 08:42 Pulse Oximeter Continuous Start: 11/12/17 10: 37 Freq: RTQ4 Status: Active Document 11/17/17 08:42 [facility] (Rec: 11/17/17 10:51 [facility] [email or web address]) Pulse Oximetry Assessment Oxygen Saturation (92-100) 97 Oxygen Delivery Method Room Air Equipment Usage Equipment in Use Continuous Pulse Oximeter 24 Hour Charge Charge Now Continuous SpO2 Machine # 7 Intake & Output 11/16/17 11/17/17 11/18/17 06:59 06:59 06:59 Intake Total 1463 1157 Balance 1463 1157 General appearance: PRESENT: no acute distress, cooperative, disheveled, obese Head exam: PRESENT: atraumatic, normocephalic Eye exam: PRESENT: conjunctiva pale, EOMI. ABSENT: nystagmus, periorbital swelling, scleral icterus Mouth exam: PRESENT: moist, neck supple, tongue midline Neck exam: ABSENT: carotid bruit, JVD, lymphadenopathy, thyromegaly, tracheal deviation, tracheostomy Respiratory exam: PRESENT: decreased breath sounds, prolonged expiratory phas, rhonchi, unlabored. ABSENT: retraction, stridor, symmetrical, tachypnea Cardiovascular exam: PRESENT: RRR, +S1, +S2 Pulses: PRESENT: normal radial pulses GI/Abdominal exam: PRESENT: diminished bowel sounds, soft Extremities exam: ABSENT: calf tenderness, clubbing Musculoskeletal exam: ABSENT: deformity, dislocation Neurological exam: PRESENT: alert, awake Psychiatric exam: PRESENT: normal mood Skin exam: PRESENT: dry, warm Results Laboratory Results: 11/17/17 05:11 11/16/17 04:48 11/17/17 11/17/17 05:11 06:16 WBC 5.4 RBC 3.55 L Hgb 9.9 L Hct 30.0 L MCV 84 MCH 27.8 MCHC 32.9 RDW 16.1 H Plt Count 233 Urine Color YELLOW Urine Appearance CLEAR Urine pH 7.0 Ur Specific [place] 1.008 Urine Protein NEGATIVE Urine Glucose (UA) NEGATIVE Urine Ketones NEGATIVE Urine Blood NEGATIVE Urine Nitrite NEGATIVE Ur Leukocyte Esterase NEGATIVE Urine WBC (Auto) 1 Urine RBC (Auto) 0 11/11/17 11:20 Bronchial Washings Fungal Smear - Final 11/11/17 11:20 Bronchial Washings Fungal Smear - Final 11/07/17 11:12 Pleural Fluid Viral Culture - Final 11/04/17 11/04/17 11/05/17 14:36 20:35 02:44 Troponin I 0.016 0.012 < 0.012 Impressions: Thoracentesis Ultrasound 11/07/17 08:58 IMPRESSION: SUCCESSFUL THORACENTESIS USING ULTRASOUND GUIDANCE. Chest CT 11/10/17 00:00 IMPRESSION: Overall improved appearance of the right lung. Residual trace bilateral pleural effusions and bilateral hilar adenopathy. Fluoroscopy 11/11/17 00:00 IMPRESSION: IMAGE(S) OBTAINED DURING PROCEDURE. Chest X-Ray 11/11/17 11:31 IMPRESSION: Clearing of the right-sided airspace disease compared to 11/03/2017. Stable cardiomegaly Assessment & Plan - Diagnosis (1) Chronic anticoagulation Is this a current diagnosis for this admission?: Yes Plan: resuming anticoag (2) Mass of right lung Is this a current diagnosis for this admission?: Yes Plan: Path reports from bronchoscopy nondiagnostic for any malignancy (3) Pleural effusion, right Is this a current diagnosis for this admission?: No (4) Respiratory distress Is this a current diagnosis for this admission?: No
[2017-11-17] MEDS: WARFARIN SODIUM 3 MG TABLET PO SCH (18:29)
[2017-11-17] MEDS: LEVALBUTEROL HCL NEB 1.25 MG/3 ML AMPUL NEB PRN (19:57)
[2017-11-17 20:43] LABS: APPEARANCE,URINE CLEAR; BILIRUBIN,URINE NEGATIVE (NEGATIVE); COLOR,URINE YELLOW; GLUCOSE, URINE NEGATIVE (NEGATIVE); KETONES,URINE NEGATIVE (NEGATIVE); LEUKOCYTE ESTERASE,URINE NEGATIVE (NEGATIVE); NITRITE,URINE NEGATIVE (NEGATIVE); PROTEIN,URINE NEGATIVE (NEGATIVE); URINE SPECIFIC GRAVITY 1.008; UROBILINOGEN,URINE NEGATIVE mg/dL (<2.0)
[2017-11-17] MEDS: ATORVASTATIN CALCIUM 40 MG TABLET PO SCH (21:19)
[2017-11-18] MEDS: PREGABALIN 100 MG CAPSULE PO SCH (05:06)
[2017-11-18] MEDS: LANSOPRAZOLE 30 MG TAB.RAP.DR PO SCH (05:06)
[2017-11-18 05:52] LABS: INTERNATIONAL RATION (INR) 1.27; PROTHROMBIN TIME 16.5 SEC (11.4-15.4)
[2017-11-18] MEDS: TOBRAMYCIN SULFATE NEB 40 MG/ML 30 ML NEB SCH (08:01)
[2017-11-18] MEDS: VALSARTAN 160 MG TABLET PO SCH (09:49)
[2017-11-18] MEDS: ENOXAPARIN SODIUM INJ 80 MG/0.8 ML DISP.SYRIN SUBCUT SCH (09:49)
[2017-11-18] MEDS: FAMOTIDINE 20 MG TABLET PO SCH (09:49)
[2017-11-18] MEDS: DOCUSATE SODIUM 100 MG CAPSULE PO SCH (09:49)
[2017-11-18] MEDS: AMLODIPINE BESYLATE 10 MG TABLET PO SCH (09:49)
[2017-11-18] MEDS: CHOLECALCIFEROL (D3) 1,000 UNIT TABLET PO SCH (09:49)
[2017-11-18] MEDS: OMEGA-3 ACID ETHYL ESTERS 1 GM CAPSULE PO SCH (09:49)
[2017-11-18] MEDS: METOPROLOL TARTRATE 50 MG TABLET PO SCH (09:49)
[2017-11-18] MEDS: CYANOCOBALAMIN (VITAMIN B-12) 1,000 MCG TABLET PO SCH (09:49)
[2017-11-18] MEDS: TIOTROPIUM BROMIDE DPI 5 CAP/KIT (18 MCG/CAP) IH SCH (09:50)
[2017-11-18] MEDS: HYDRALAZINE HCL 25 MG TABLET PO SCH (09:50)
[2017-11-18] MEDS: SOTALOL HCL 120 MG PO SCH (09:50)
[2017-11-18 11:14] VITALS: BP 133/65
--- NOTE | 2017-11-18 16:00 | PDOC PROGRESS REPORT ---
Subjective Progress Note for:: 11/18/17 Subjective:: continues to improve Reason For Visit: CHF COPD AND EXACERBATION, PNEUMONIA Physical Exam Vital Signs: Temp Pulse Resp BP Pulse Ox 98.1 F 64 16 133/65 H 94 11/18/17 11:12 11/18/17 11:12 11/18/17 11:12 11/18/17 11:12 11/18/17 11:12 Pulse Oximeter Continuous Start: 11/12/17 10: 37 Freq: RTQ4 Status: Discharge Document 11/18/17 08:01 [facility] (Rec: 11/18/17 09:58 [facility] [email or web address]) Pulse Oximetry Assessment Equipment Usage Equipment Standby Continuous SpO2 Machine # 7 Intake & Output 11/17/17 11/18/17 11/19/17 06:59 06:59 06:59 Intake Total 1157 1865 Output Total 1400 600 Balance 1157 465 -600 General appearance: PRESENT: no acute distress, cooperative, obese. ABSENT: disheveled Head exam: PRESENT: atraumatic, normocephalic Eye exam: PRESENT: conjunctiva pale, EOMI. ABSENT: nystagmus, periorbital swelling, scleral icterus Mouth exam: PRESENT: moist, neck supple, tongue midline Neck exam: ABSENT: carotid bruit, JVD, lymphadenopathy, thyromegaly, tracheal deviation, tracheostomy Respiratory exam: PRESENT: decreased breath sounds, prolonged expiratory phas, rhonchi, unlabored. ABSENT: rales, retraction, stridor, tachypnea Cardiovascular exam: PRESENT: RRR, +S1, +S2 Pulses: PRESENT: normal radial pulses GI/Abdominal exam: PRESENT: normal bowel sounds, soft Extremities exam: ABSENT: calf tenderness, clubbing, joint swelling Musculoskeletal exam: PRESENT: ambulatory. ABSENT: deformity, dislocation Neurological exam: PRESENT: alert, awake Skin exam: PRESENT: dry, warm Results Laboratory Results: 11/17/17 05:11 11/16/17 04:48 11/17/17 11/18/17 19:00 06:00 Urine Color YELLOW Urine Appearance CLEAR Urine pH 6.0 Ur Specific [place] 1.008 Urine Protein NEGATIVE Urine Glucose (UA) NEGATIVE Urine Ketones NEGATIVE Urine Blood NEGATIVE Urine Nitrite NEGATIVE Ur Leukocyte Esterase NEGATIVE Urine WBC (Auto) 1 Stool Occult Blood NEGATIVE 11/04/17 11/04/17 11/05/17 14:36 20:35 02:44 Troponin I 0.016 0.012 < 0.012 Impressions: Thoracentesis Ultrasound 11/07/17 08:58 IMPRESSION: SUCCESSFUL THORACENTESIS USING ULTRASOUND GUIDANCE. Chest CT 11/10/17 00:00 IMPRESSION: Overall improved appearance of the right lung. Residual trace bilateral pleural effusions and bilateral hilar adenopathy. Fluoroscopy 11/11/17 00:00 IMPRESSION: IMAGE(S) OBTAINED DURING PROCEDURE. Chest X-Ray 11/11/17 11:31 IMPRESSION: Clearing of the right-sided airspace disease compared to 11/03/2017. Stable cardiomegaly Assessment & Plan - Diagnosis (1) Chronic anticoagulation Is this a current diagnosis for this admission?: Yes (2) Mass of right lung Is this a current diagnosis for this admission?: Yes Plan: Path reports from bronchoscopy nondiagnostic for any malignancy (3) Pleural effusion, right Is this a current diagnosis for this admission?: No Plan: resolved (4) Respiratory distress Is this a current diagnosis for this admission?: No
--- NOTE | 2017-11-18 18:59 | PDOC DISCHARGE SUMMARY ---
General - Admit/Disc Date/PCP Admission Date/Primary Care Provider: 11/03/17 23:50 Discharge Date: 11/18/17 - Discharge Diagnosis (1) Right lower lobe pneumonia Is this a current diagnosis for this admission?: Yes (2) Sepsis Is this a current diagnosis for this admission?: Yes (3) Hypertensive urgency Is this a current diagnosis for this admission?: Yes (4) COPD exacerbation Is this a current diagnosis for this admission?: Yes (5) Chronic anticoagulation Is this a current diagnosis for this admission?: Yes (6) History of CHF (congestive heart failure) Is this a current diagnosis for this admission?: Yes (7) Mass of right lung Is this a current diagnosis for this admission?: Yes (8) Pleural effusion, right Is this a current diagnosis for this admission?: Yes (9) Acute respiratory failure Is this a current diagnosis for this admission?: Yes - Additional Information Resuscitation Status: Full Code Discharge Diet: Cardiac Discharge Activity: Activity As Tolerated, Balance Activity w/Rest, Weigh Daily Prescriptions: Apixaban [Eliquis 5 mg Tablet] 5 mg PO BID #60 tablet Levofloxacin [Levaquin 750 mg Tablet] 750 mg PO DAILY #10 tab Home Medications: Albuterol Sulfate [Ventolin HFA MDI 18 GM] 1 puff IH DAILY 11/04/17 Amlodipine Besylate [Norvasc 10 mg Tablet] 10 mg PO DAILY 11/04/17 Aspirin [Ecotrin 81 mg EC Tablet] 81 mg PO DAILY 11/04/17 Atorvastatin Calcium [Lipitor 40 mg Tablet] 40 mg PO QHS 11/04/17 Docusate Sodium [Colace 100 mg Capsule] 100 mg PO DAILY 11/04/17 Lisinopril [Prinivil 40 mg Tablet] 40 mg PO DAILY 11/04/17 Metoprolol Tartrate [Lopressor 100 mg Tablet] 100 mg PO Q12 11/04/17 [place]-3 Fatty Acids/Fish Oil [Fish Oil 1,000 mg Capsule] 1,000 mg PO DAILY 11/04 Omeprazole 40 mg PO DAILY 11/04/17 Sotalol HCl [Sotalol AF] 120 mg PO Q12 11/04/17 Tiotropium [place] [Spiriva Handihaler 5 Cap/Kit (18 Mcg/Cap)] 1 puff IH DAILY 11/04/17 Valsartan [Diovan] 320 mg PO DAILY 11/04/17 Vit C/Vit E AC/Lut/Copper/Zinc [Preservision Lutein Softgel] 1 cap PO TID Benzonatate [Tessalon Perles 100 mg Capsule] 100 mg PO Q8HP PRN 11/05/17 Cholecalciferol (Vitamin D3) [Vitamin D3 1000 Unit Tablet] 1,000 unit PO DAILY 11/05/17 Cyanocobalamin (Vitamin B-12) [Vitamin B-12] 2,500 mcg SL DAILY 11/05/17 Hydralazine HCl [Apresoline 25 mg Tablet] 25 g PO TID 11/05/17 Pregabalin [Lyrica 100 mg Capsule] 100 mg PO Q8 11/05/17 Raloxifene HCl [Evista 60 mg Tablet] 60 mg PO DAILY 11/05/17 Apixaban [Eliquis 5 mg Tablet] 5 mg PO BID #60 tablet 11/18/17 Levofloxacin [Levaquin 750 mg Tablet] 750 mg PO DAILY #10 tab 11/18/17 History of Present Illness History of Present Illness: SULLY ESCALANTE is a 82 year old female with a past medical history of COPD, chronic bronchitis, coronary artery disease status post permanent pacemaker, congestive heart failure. Patient presented with 7 days of nausea, vomiting, diarrhea, and nonproductive cough. Family called EMS for exceptional shortness of breath for one day but patient declined EMS services. Patient progressive symptoms with lethargy and oxygen saturations in the 70s promted to [facility] EMS again and was borugh to the emergency room where she received continuous albuterol and Atrovent treatments, ketamine and BiPAP. Workup revealed leukocytosis, BNP of 6000 and chest x-ray with right middle lobe infiltrate. She was started on empiric antibiotics and hospitalist service for consulted for admission. Patient required BiPAP and history gathering was thru family members. Hospital Course Hospital Course: Patient was found to have pneumonia as well as COPD exacerbation and sepsis. Chest x-ray revealed a right middle lobe and right lower lobe pneumonia. CT scan of the chest revealed a right hilar mass and small right pleural effusion. She underwent thoracentesis on November 07 only obtaining around 80 mls of bloody pleural fluid. She underwent biopsy of lung mass which was non diagnostic for malignancy. At the present time there is no plan to repeat BAL. she has been treated and completed IV antibiotics. She is chronically anticoagulated for A fib and her INR remained low. We opted to place her on Eliquis since she remained stable and was wishing to go home after a prolonged hospitalization. Has an appointment with Dr. Davis on November 27. Patient was advised that import export agent will have the final say whether she continues on Eliquis or not. Patient is also to follow with Dr. Solo within 4 weeks following discharge. At the time of discharge patient was saturating 96% room air. Since patient had achieved maximum benefit of hospitalization stay prompted to discharge. Physical Exam Vital Signs: Temp Pulse Resp BP Pulse Ox 98.1 F 64 16 157/56 H 94 11/18/17 09:46 11/18/17 09:46 11/18/17 09:46 11/18/17 09:46 11/18/17 09:46 Pulse Oximeter Continuous Start: 11/12/17 10: 37 Freq: RTQ4 Status: Active Document 11/18/17 08:01 [facility] (Rec: 11/18/17 09:58 [facility] [email or web address]) Pulse Oximetry Assessment Equipment Usage Equipment Standby Continuous SpO2 Machine # 7 Intake & Output 11/17/17 11/18/17 11/19/17 06:59 06:59 06:59 Intake Total 1157 1865 Output Total 1400 600 Balance 1157 465 -600 General appearance: PRESENT: cooperative, obese Head exam: PRESENT: atraumatic, normocephalic Eye exam: PRESENT: conjunctiva pink, EOMI, PERRLA Ear exam: PRESENT: normal external ear exam Mouth exam: PRESENT: moist Neck exam: PRESENT: full ROM. ABSENT: JVD, lymphadenopathy, tenderness Respiratory exam: PRESENT: clear to auscultation [place] Cardiovascular exam: PRESENT: RRR. ABSENT: diastolic murmur, systolic murmur Vascular exam: PRESENT: normal capillary refill GI/Abdominal exam: PRESENT: normal bowel sounds, soft, tenderness Extremities exam: PRESENT: full ROM. ABSENT: pedal edema, tenderness Musculoskeletal exam: PRESENT: ambulatory Neurological exam: PRESENT: alert, awake, oriented to person, oriented to place , oriented to time, oriented to situation, CN II-XII grossly intact Psychiatric exam: PRESENT: appropriate affect, normal mood Skin exam: PRESENT: intact, normal color Results Laboratory Results: 11/17/17 05:11 11/16/17 04:48 11/17/17 11/18/17 19:00 06:00 Urine Color YELLOW Urine Appearance CLEAR Urine pH 6.0 Ur Specific [place] 1.008 Urine Protein NEGATIVE Urine Glucose (UA) NEGATIVE Urine Ketones NEGATIVE Urine Blood NEGATIVE Urine Nitrite NEGATIVE Ur Leukocyte Esterase NEGATIVE Urine WBC (Auto) 1 Stool Occult Blood NEGATIVE 11/11/17 11:20 Bronchial Washings Fungal Smear - Final 11/11/17 11:20 Bronchial Washings Fungal Smear - Final 11/07/17 11:12 Pleural Fluid Viral Culture - Final 11/04/17 11/04/17 11/05/17 14:36 20:35 02:44 Troponin I 0.016 0.012 < 0.012 Impressions: Thoracentesis Ultrasound 11/07/17 08:58 IMPRESSION: SUCCESSFUL THORACENTESIS USING ULTRASOUND GUIDANCE. Chest CT 11/10/17 00:00 IMPRESSION: Overall improved appearance of the right lung. Residual trace bilateral pleural effusions and bilateral hilar adenopathy. Fluoroscopy 11/11/17 00:00 IMPRESSION: IMAGE(S) OBTAINED DURING PROCEDURE. Chest X-Ray 11/11/17 11:31 IMPRESSION: Clearing of the right-sided airspace disease compared to 11/03/2017. Stable cardiomegaly Qualifiers - * PATIENT BEING DISCHARGED WITH ANY OF THE FOLLOWING DIAGNOSIS: No Plan Discharge Plan: Discharge home. Follow-up with Dr. Davis on November 27 as scheduled Time Spent: Greater than 30 Minutes
== END 2017-11-18 11:53 | disposition home or self-care (01) | DRG 853 ==
LOC: ER 21:07 → EH 23:50 → 3S 11-04 01:00
PROVIDERS: ADMIT Internal Medicine; ATTEND Internal Medicine
PROC: 0W993ZX Drainage of Right Pleural Cavity, Percutaneous Approach, Diagnostic (ICD-10-PCS; 2017-11-03)
PROC: 0B9F8ZX Drainage of Right Lower Lung Lobe, Via Natural or Artificial Opening Endoscopic, Diagnostic (ICD-10-PCS; principal; 2017-11-11 10:00)
PROC: 0BD58ZX Extraction of Right Middle Lobe Bronchus, Via Natural or Artificial Opening Endoscopic, Diagnostic (ICD-10-PCS; 2017-11-11 10:00)
DX: A41.9 Sepsis, unspecified organism (principal); J18.1 Lobar pneumonia, unspecified organism; J96.01 Acute respiratory failure with hypoxia; J44.0 Chronic obstructive pulmonary disease with (acute) lower respiratory infection; J44.1 Chronic obstructive pulmonary disease with (acute) exacerbation; I50.32 Chronic diastolic (congestive) heart failure; J91.8 Pleural effusion in other conditions classified elsewhere; I16.0 Hypertensive urgency; I11.0 Hypertensive heart disease with heart failure; I25.10 Atherosclerotic heart disease of native coronary artery without angina pectoris; E78.5 Hyperlipidemia, unspecified; K21.9 Gastro-esophageal reflux disease without esophagitis; I48.91 Unspecified atrial fibrillation; M19.90 Unspecified osteoarthritis, unspecified site; R91.8 Other nonspecific abnormal finding of lung field; Z87.891 Personal history of nicotine dependence; Z88.0 Allergy status to penicillin; Z88.8 Allergy status to other drugs, medicaments and biological substances; Z95.0 Presence of cardiac pacemaker; Z79.899 Other long term (current) drug therapy; Z79.82 Long term (current) use of aspirin; Z79.02 Long term (current) use of antithrombotics/antiplatelets; Z80.42 Family history of malignant neoplasm of prostate; Z80.7 Family history of other malignant neoplasms of lymphoid, hematopoietic and related tissues
CPT/HCPCS: 31624; 31628; 31629; 32555; 36415; 71045; 71250; 76000; 80048; 80053; 81001; 82150; 82272; 82803; 82945; 82962; 83615; 83690; 83880; 84155; 84157; 84484; 85025; 85027; 85610; 87015; 87040; 87045; 87070; 87075; 87077; 87101; 87116; 87186; 87205; 87206; 87252; 87486; 88305; 89050; 89055; 93005; 93010; 93306; 94640; 94660; 94762; 94799; 96361; 96365; 96375; 99291; J0171; J0696; J1644; J1650; J1940; J1956; J2250; J2270; J2310; J2405; J2550; J3010; J3430; J3475; J3490; J7030; J7685

== ENCOUNTER 2017-11-21 11:30 | Emergency (ER) | payer MEDICARE, MEDICAID ==
[2017-11-21] MEDS ORDERED: NORMAL SALINE 500 ML IV ONE (11:42)
[2017-11-21 12:04] LABS: ABSOLUTE EOSINOPHILS # (AUTO) 0.1 10^3/uL (0.0-0.6); ABSOLUTE LYMPHOCYTES (AUTO) 1.5 10^3/uL (0.5-4.7); ABSOLUTE MONOCYTES (AUTO) 0.5 10^3/uL (0.1-1.4); ABSOLUTE NEUT (AUTO) 2.6 10^3/uL (1.7-8.2); ABSOLUTE RETICS # 0.099 10^6/uL (0.028-0.122); BASOPHILS % (AUTO) 0.7 % (0-2); HEMATOCRIT 32.3 % (36.0-47.0); HEMOGLOBIN 10.6 g/dL (12.0-15.5); MEAN CORPUSCULAR HGB CONC 32.9 g/dL (32.0-36.0); MEAN CORPUSCULAR VOLUME 85 fl (80-97); MONOCYTES % (AUTO) 10.9 % (3-13); PLATELET COUNT 236 10^3/uL (150-450); RED CELL DISTRIBUTION WIDTH 16.7 % (11.5-14.0); RETICULOCYTE COUNT (AUTO) 2.62 % (0.66-2.85); SEGMENTED NEUTROPHILS % (AUTO) 54.4 % (42-78); TOTAL CELLS COUNTED % (AUTO) 100 %; WHITE BLOOD COUNT 4.8 10^3/uL (4.0-10.5)
[2017-11-21 12:08] LABS: INTERNATIONAL RATION (INR) 1.44; PROTHROMBIN TIME 18.3 SEC (11.4-15.4)
[2017-11-21 12:19] LABS: ALANINE AMINOTRANSFERASE 157 U/L (9-52); ALBUMIN 3.7 g/dL (3.5-5.0); ALKALINE PHOSPHATASE 68 U/L (38-126); ANION GAP 10 (5-19); ASPARTATE AMINO TRANSFERASE 134 U/L (14-36); BILIRUBIN,DIRECT 0.2 mg/dL (0.0-0.4); BILIRUBIN,TOTAL 0.2 mg/dL (0.2-1.3); BLOOD UREA NITROGEN 20 mg/dL (7-20); CALCIUM 9.6 mg/dL (8.4-10.2); CARBON DIOXIDE 27 mmol/L (22-30); CHLORIDE 101 mmol/L (98-107); GLUCOSE 104 mg/dL (75-110); IRON(TIBC) 59.5 ug/dL (37-170); SODIUM 138.2 mmol/L (137-145); TOTAL PROTEIN 6.5 g/dL (6.3-8.2)
[2017-11-21 12:34] LABS: VENOUS BLOOD BASE EXCESS 1.3 mmol/L; VENOUS BLOOD HCO3 26.2 mmol/L (20-32); VENOUS BLOOD PCO2 42.5 mmHg (35-63); VENOUS BLOOD PH 7.41 (7.30-7.42)
--- NOTE | 2017-11-21 12:58 | RADIOLOGY REPORT (SQ) ---
EXAM DESCRIPTION: CHEST 2 VIEWS COMPLETED DATE/TIME: 11/21/2017 12:38 pm REASON FOR STUDY: recent pneumonia sepsis COMPARISON: 01/12/2016 EXAM PARAMETERS: NUMBER OF VIEWS: two views TECHNIQUE: Digital Frontal and Lateral radiographic views of the chest acquired. RADIATION DOSE: NA LIMITATIONS: none FINDINGS: LUNGS AND PLEURA: No opacities, masses or pneumothorax. No pleural effusion. MEDIASTINUM AND HILAR STRUCTURES: No masses or contour abnormalities. HEART AND VASCULAR STRUCTURES: Heart size is borderline. There is no evidence of failure. BONES: No acute findings. HARDWARE: Pacemaker. OTHER: No other significant finding. IMPRESSION: Borderline cardiomegaly with no evidence of failure. TECHNICAL DOCUMENTATION: JOB ID: [id number] [employer]- All Rights Reserved Reading location - IP/workstation name: [email or web address]
[2017-11-21 14:11] LABS: APPEARANCE,URINE CLEAR; BILIRUBIN,URINE NEGATIVE (NEGATIVE); COLOR,URINE YELLOW; GLUCOSE, URINE NEGATIVE (NEGATIVE); KETONES,URINE NEGATIVE (NEGATIVE); LEUKOCYTE ESTERASE,URINE NEGATIVE (NEGATIVE); NITRITE,URINE NEGATIVE (NEGATIVE); PROTEIN,URINE NEGATIVE (NEGATIVE); URINE SPECIFIC GRAVITY 1.012; UROBILINOGEN,URINE NEGATIVE mg/dL (<2.0)
--- NOTE | 2017-11-21 14:36 | ER Document Report ---
ED General - General Chief Complaint: Blood Pressure Problem Stated Complaint: DIZZY Time Seen by Provider: 11/21/17 11:37 Mode of Arrival: Ambulatory Information source: Patient Notes: 82-year-old female presents with complaints of sudden hypotension. Patient notes she was admitted in the hospital her symptoms had all improved significantly and she has no complaints, today she was noted to feel lightheaded dizzy , they noted a home blood pressure 50s over 30s, but by the time EMS arrived blood pressures were 130s over 60s and patient was asymptomatic she denies any chest pain shortness of breath difficult to breathing or any other concerns at this time TRAVEL OUTSIDE OF THE [place] IN LAST 30 DAYS: No - HPI Onset: Just prior to arrival Onset/Duration: Sudden Severity: Mild Pain Level: Denies Associated symptoms: Weakness Relieved by: Standing Similar symptoms previously: No Recently seen / treated by doctor: Yes - Related Data Allergies/Adverse Reactions: Penicillins Allergy (Mild, Verified 11/03/17 21:59) Hives celecoxib Allergy (Verified 11/03/17 21:59) Past Medical History - Social History Smoking Status: Never Smoker Cigarette use (# per day): No Chew tobacco use (# tins/day): No Smoking Education Provided: No Frequency of alcohol use: None Drug Abuse: None Family History: Other - Unobtainable Patient has suicidal ideation: No Patient has homicidal ideation: No - Past Medical History Cardiac Medical History: Reports: Hx Coronary Artery Disease, Hx Hypercholesterolemia, Hx Hypertension Denies: Hx Heart Attack Pulmonary Medical History: Reports: Hx Asthma, Hx COPD Denies: Hx Bronchitis, Hx Pneumonia Neurological Medical History: Denies: Hx Cerebrovascular Accident, Hx Seizures Renal/ Medical History: Denies: Hx Peritoneal Dialysis GI Medical History: Reports: Hx Gastroesophageal Reflux Disease Musculoskeltal Medical History: Reports Hx Arthritis Past Surgical History: Reports: Hx Cardiac Surgery - paced, Hx Orthopedic Surgery - cervical fusion, Hx Pacemaker. Denies: Hx Hysterectomy - Immunizations Hx Diphtheria, Pertussis, Tetanus Vaccination: No Hx Pneumococcal Vaccination: 07/21/07 Review of Systems - Review of Systems Notes: REVIEW OF SYSTEMS: CONSTITUTIONAL : Denies fever, chills, or sweats. Denies recent illness. EENT: Denies eye, ear, throat, or mouth pain or symptoms. Denies nasal or sinus congestion or discharge. Denies throat, tongue, or mouth swelling or difficulty swallowing. CARDIOVASCULAR: Denies chest pain RESPIRATORY: Denies cough, cold, or chest congestion. Denies shortness of breath, difficulty breathing, or wheezing. GASTROINTESTINAL: Denies abdominal pain or distention. Denies nausea, vomiting , or diarrhea. Denies blood in vomitus, stools, or per rectum. Denies black, tarry stools. Denies constipation. GENITOURINARY: Denies difficulty urinating, painful urination, burning, frequency, blood in urine, or discharge. FEMALE GENITOURINARY: Denies vaginal bleeding, heavy or abnormal periods, irregular periods. Denies vaginal discharge or odor. MUSCULOSKELETAL: Denies back or neck pain or stiffness. Denies joint pain or swelling. SKIN: Denies rash, lesions or sores. HEMATOLOGIC : Denies easy bruising or bleeding. LYMPHATIC: Denies swollen, enlarged glands. NEUROLOGICAL: Admits to dizziness PSYCHIATRIC: Denies anxiety or stress. Denies depression, suicidal ideation, or homicidal ideation. ALL OTHER SYSTEMS REVIEWED AND NEGATIVE. PHYSICAL EXAMINATION: GENERAL: Well-appearing, well-nourished and in no acute distress. HEAD: Atraumatic, normocephalic. EYES: Pupils equal round and reactive to light, extraocular movements intact, conjunctiva are normal. ENT: Nares patent, oropharynx clear without exudates. Moist mucous membranes. NECK: Normal range of motion, supple without lymphadenopathy LUNGS: Breath sounds clear to auscultation bilaterally and equal. No wheezes rales or rhonchi. HEART: Regular rate and rhythm without murmurs ABDOMEN: Soft, nontender, nondistended abdomen. No guarding, no rebound. No masses appreciated. Female : deferred Musculoskeletal: Normal range of motion, no pitting or edema. No cyanosis. NEUROLOGICAL: Cranial nerves grossly intact. Normal speech, normal gait. Normal sensory, motor exams PSYCH: Normal mood, normal affect. SKIN: Warm, Dry, normal turgor, no rashes or lesions noted. Dictation was performed using [employer] voice recognition software Physical Exam - Vital signs Vitals: Resp 19 11/21/17 11:43 Course - Re-evaluation Re-evalutation: Patient was evaluated and was watched in the emergency department lab work noted no acute abnormalities, her examination was quite benign, her symptoms had resolved and her blood pressure had stabilized. I am unsure of the specific cause at this time, I explained to them that I do not believe is infectious in nature and she is afebrile and otherwise completely benign, she has no symptoms, this may been a vagal response which also may have caused some orthostatic hypotension, small fluid bolus was given otherwise patient remained stable and was watched in the emergency department for multiple hours, given that she felt well and family felt that she was appropriate for discharge I will discharge her with understand that she must return immediately if there are any other concerns they all understand and agree with this plan After performing a Medical Screening Examination, I estimate there is LOW risk for RUPTURED ESOPHAGUS, PNEUMOTHORAX, PULMONARY EMBOLISM, ACUTE CORONARY SYNDROME, OR THORACIC AORTIC DISSECTION, thus I consider the discharge disposition reasonable. I have reevaluated this patient multiple times and no significant life threatening changes are noted. The patient and I have discussed the diagnosis and risks, and we agree with discharging home with close follow-up. We also discussed returning to the Emergency Department immediately if new or worsening symptoms occur. We have discussed the symptoms which are most concerning (e.g., bloody sputum, worsening pain or shortness of breath) that necessitate immediate return. 11/22/17 11:59 - Vital Signs Vital signs: Temp Pulse Resp BP Pulse Ox 97.8 F 63 18 132/60 H 96 11/21/17 14:00 11/21/17 14:54 11/21/17 14:54 11/21/17 14:54 11/21/17 14:54 - Laboratory Result Diagrams: 11/21/17 11:45 11/21/17 11:45 Laboratory results interpreted by me: 11/21/17 11/21/17 11/21/17 11:45 11:45 11:45 Hgb 10.6 L Hct 32.3 L RDW 16.7 H PT 18.3 H AST 134 H ALT 157 H Vitamin B12 > 1000.0 H Urine Ascorbic Acid 11/21/17 13:55 Hgb Hct RDW PT AST ALT Vitamin B12 Urine Ascorbic Acid 40 H - Diagnostic Test Radiology reviewed: Image reviewed - 2 view chest x-ray notes no acute abnormality, Reports reviewed - EKG Interpretation by Me EKG shows normal: Sinus rhythm, Deloit, Intervals, QRS Complexes Discharge - Discharge Clinical Impression: Hypotension Qualifiers: Hypotension type: unspecified hypotension type Qualified Code(s): I95.9 - Hypotension, unspecified Condition: Stable Disposition: HOME, SELF-CARE Instructions: Hypotension ([facility]), Orthostatic Hypotension ([facility]) Referrals: CHANTELL HUNTER MD [Primary Care Provider] - Follow up tomorrow
[2017-11-21 14:55] VITALS: BP 132/60
--- NOTE | 2017-11-21 21:38 | EKG REPORT ---
SEVERITY:- ABNORMAL ECG - ATRIAL-PACED RHYTHM : Confirmed by: Carter Rodriguez 21-Nov-2017 21:38:13
== END 2017-11-21 14:55 | disposition home or self-care (01) ==
LOC: ER 11:30
DX: I95.9 Hypotension, unspecified (principal); I25.10 Atherosclerotic heart disease of native coronary artery without angina pectoris; I10 Essential (primary) hypertension; J44.9 Chronic obstructive pulmonary disease, unspecified; Z95.0 Presence of cardiac pacemaker; Z88.0 Allergy status to penicillin; Z88.8 Allergy status to other drugs, medicaments and biological substances; R42 Dizziness and giddiness; R53.1 Weakness
CPT/HCPCS: 93005; 99284; 96360; 36415; 87040; 87086; 82962; 82607; 82728; 82746; 83540; 83550; 85025; 85610; 87088; 85045; 80053; 81001; 87186; 84466; 82803; 83605; 71046; 93010; J7040

== ENCOUNTER → 2017-12-08 | Outpatient (CLI) | payer MEDICARE, MEDICAID ==
[2017-12-08 15:44] LABS: INTERNATIONAL RATION (INR) 0.98; PROTHROMBIN TIME 13.5 SEC (11.4-15.4)
[2017-12-08 15:45] LABS: PARTIAL THROMBOPLASTIN TIME 31.2 SEC (23.5-35.8)
== END ==
LOC: OD 14:40
PROVIDERS: ATTEND Physician Assistant
DX: Z79.01 Long term (current) use of anticoagulants (principal); Z79.02 Long term (current) use of antithrombotics/antiplatelets
CPT/HCPCS: 36415; 85610; 85730

== ENCOUNTER → 2017-12-16 | Outpatient (CLI) | payer MEDICARE, MEDICAID ==
--- NOTE | 2017-12-16 08:47 | RADIOLOGY REPORT (SQ) ---
EXAM DESCRIPTION: CT CHEST WITHOUT COMPLETED DATE/TIME: 12/16/2017 8:16 am REASON FOR STUDY: DYSPNEA R06.00 DYSPNEA, UNSPECIFIED COMPARISON: None. TECHNIQUE: CT scan performed of the chest without intravenous contrast. Images reviewed with lung, soft tissue and bone windows. Reconstructed coronal and sagittal MPR images reviewed. All images st ored on PACS. All CT scanners at this facility use dose modulation, iterative reconstruction, and/or weight based d osing when appropriate to reduce radiation dose to as low as reasonably achievable (ALARA). [facility]: Dose Right [facility]: CareDose [facility]: Dose Right [facility]: Teradose 4D [facility]: [employer] RADIATION DOSE: CT Rad equipment meets quality standard of care and radiation dose reduction techniq ues were employed. CTDIvol: 5.7 - 6.3 mGy. DLP: 263 mGy-cm. mGy. LIMITATIONS: No technical limitations. FINDINGS: LUNGS AND PLEURA: Stable scarring in the lung apices, middle lobe and lingula. No effusio ns. HILAR AND MEDIASTINAL STRUCTURES: No identified masses or abnormal nodes. No obvious aneurysm. HEART AND VASCULAR STRUCTURES: No aneurysm. Cardiomegaly. Mitral annular calcifications. No perica rdial effusion. UPPER ABDOMEN: No significant findings. Limited exam. THYROID AND OTHER SOFT TISSUES: No masses. No adenopathy. BONES: No significant finding. HARDWARE: Pacemaker. OTHER: No other significant findings. IMPRESSION: Stable, chronic changes. TECHNICAL DOCUMENTATION: JOB ID: [id number] Quality ID # [id number]: Final reports with documentation of one or more dose reduction techniques (e.g., Au tomated exposure control, adjustment of the mA and/or kV according to patient size, use of iterative reconstruction technique) 2010 [employer]- All Rights Reserved Reading location - IP/workstation name: [email or web address]
== END ==
LOC: RAD 07:59
PROVIDERS: ATTEND Internal Medicine Pulmonary Disease
DX: R06.00 Dyspnea, unspecified (principal)
CPT/HCPCS: 71250

== ENCOUNTER → 2018-01-14 | Outpatient (CLI) | payer MEDICARE, MEDICAID ==
[2018-01-14 13:59] LABS: ALANINE AMINOTRANSFERASE 26 U/L (9-52); ALKALINE PHOSPHATASE 67 U/L (38-126); ANION GAP 9 (5-19); ASPARTATE AMINO TRANSFERASE 21 U/L (14-36); BILIRUBIN,DIRECT 0.3 mg/dL (0.0-0.4); BILIRUBIN,TOTAL 0.4 mg/dL (0.2-1.3); BLOOD UREA NITROGEN 26 mg/dL (7-20); CALCIUM 9.5 mg/dL (8.4-10.2); CARBON DIOXIDE 30 mmol/L (22-30); CHLORIDE 99 mmol/L (98-107); GLUCOSE 92 mg/dL (75-110); SODIUM 138.3 mmol/L (137-145); TOTAL PROTEIN 6.9 g/dL (6.3-8.2)
== END ==
LOC: OD 12:30
PROVIDERS: ATTEND Family Medicine
DX: E55.9 Vitamin D deficiency, unspecified (principal); R74.0 Nonspecific elevation of levels of transaminase and lactic acid dehydrogenase [LDH]; E53.8 Deficiency of other specified B group vitamins; R73.01 Impaired fasting glucose; Z79.899 Other long term (current) drug therapy
CPT/HCPCS: 36415; 80048; 80076; 82306; 82607; 83036

== ENCOUNTER → 2018-03-03 | Outpatient (CLI) | payer MEDICARE, MEDICAID ==
[2018-03-03 16:35] LABS: INTERNATIONAL RATION (INR) 0.94; PARTIAL THROMBOPLASTIN TIME 29.8 SEC (23.5-35.8)
== END ==
LOC: OD 14:59
PROVIDERS: ATTEND Physician Assistant
DX: Z79.01 Long term (current) use of anticoagulants (principal); G89.4 Chronic pain syndrome; M51.26 Other intervertebral disc displacement, lumbar region; M54.16 Radiculopathy, lumbar region; M51.37 Other intervertebral disc degeneration, lumbosacral region; M15.9 Polyosteoarthritis, unspecified
CPT/HCPCS: 36415; 85610; 85730

== ENCOUNTER → 2018-03-25 | Outpatient (CLI) | payer MEDICARE, MEDICAID ==
[2018-03-25 09:39] LABS: ALANINE AMINOTRANSFERASE 28 U/L (9-52); ALBUMIN 3.6 g/dL (3.5-5.0); ALKALINE PHOSPHATASE 103 U/L (38-126); ASPARTATE AMINO TRANSFERASE 19 U/L (14-36); BILIRUBIN,DIRECT 0.3 mg/dL (0.0-0.4); BILIRUBIN,TOTAL 0.6 mg/dL (0.2-1.3); CHOLESTEROL 137.61 mg/dL (0-200); TOTAL PROTEIN 6.6 g/dL (6.3-8.2); TRIGLYCERIDES 117 mg/dL (<150)
[2018-03-25 09:50] LABS: DIRECT LDL 53 mg/dL (<100)
== END ==
LOC: OD 08:05
PROVIDERS: ATTEND Specialist
DX: E78.5 Hyperlipidemia, unspecified (principal); Z79.899 Other long term (current) drug therapy
CPT/HCPCS: 36415; 80061; 80076

== ENCOUNTER → 2018-07-07 | Outpatient (CLI) | payer MEDICARE, MEDICAID ==
[2018-07-07 10:06] LABS: ABSOLUTE EOSINOPHILS # (AUTO) 0.1 10^3/uL (0.0-0.6); ABSOLUTE LYMPHOCYTES (AUTO) 1.8 10^3/uL (0.5-4.7); ABSOLUTE MONOCYTES (AUTO) 0.6 10^3/uL (0.1-1.4); ABSOLUTE NEUT (AUTO) 3.6 10^3/uL (1.7-8.2); BASOPHILS % (AUTO) 0.6 % (0-2); EOSINOPHILS % (AUTO) 1.5 % (0-6); HEMATOCRIT 35.5 % (36.0-47.0); LYMPHOCYTES % (AUTO) 29.8 % (13-45); MEAN CORPUSCULAR HEMOGLOBIN 28.1 pg (27.0-33.4); MEAN CORPUSCULAR HGB CONC 33.7 g/dL (32.0-36.0); MEAN CORPUSCULAR VOLUME 83 fl (80-97); MONOCYTES % (AUTO) 9.1 % (3-13); PLATELET COUNT 210 10^3/uL (150-450); RED BLOOD COUNT 4.26 10^6/uL (3.72-5.28); RED CELL DISTRIBUTION WIDTH 15.8 % (11.5-14.0); TOTAL CELLS COUNTED % (AUTO) 100 %; WHITE BLOOD COUNT 6.2 10^3/uL (4.0-10.5)
[2018-07-07 10:33] LABS: ALANINE AMINOTRANSFERASE 24 U/L (9-52); ALBUMIN 3.7 g/dL (3.5-5.0); ALKALINE PHOSPHATASE 74 U/L (38-126); ANION GAP 6 (5-19); ASPARTATE AMINO TRANSFERASE 20 U/L (14-36); BILIRUBIN,DIRECT 0.2 mg/dL (0.0-0.4); BILIRUBIN,TOTAL 0.5 mg/dL (0.2-1.3); BLOOD UREA NITROGEN 24 mg/dL (7-20); CALCIUM 9.3 mg/dL (8.4-10.2); CARBON DIOXIDE 31 mmol/L (22-30); CHLORIDE 102 mmol/L (98-107); CHOLESTEROL 150.31 mg/dL (0-200); GLUCOSE 97 mg/dL (75-110); POTASSIUM 4.8 mmol/L (3.6-5.0); SODIUM 138.7 mmol/L (137-145); TOTAL PROTEIN 6.5 g/dL (6.3-8.2); TRIGLYCERIDES 128 mg/dL (<150)
[2018-07-07 10:44] LABS: DIRECT LDL 81 mg/dL (<100)
== END ==
LOC: OD 09:16
PROVIDERS: ATTEND Family Medicine
DX: E78.5 Hyperlipidemia, unspecified (principal); R73.01 Impaired fasting glucose; Z79.01 Long term (current) use of anticoagulants; Z79.899 Other long term (current) drug therapy
CPT/HCPCS: 36415; 80053; 80061; 83036; 84443; 85025

== ENCOUNTER → 2018-07-10 | Outpatient (CLI) | payer MEDICARE, MEDICAID ==
--- NOTE | 2018-07-10 13:40 | WOMENS IMAGING REPORT ---
EXAM DESCRIPTION: BILAT SCREENING MAMMO W/CAD COMPLETED DATE/TIME: 07/10/2018 11:03 am REASON FOR STUDY: ROUTINE BILATERAL SCREENING;Z12.31 Z12.31 ENCNTR SCREEN MAMMOGRAM FOR MALIGNANT N EOPLASM OF AKIKO M81.0 AGE-RELATED OSTEOPOROSIS W/O CURRENT PATHOLOGICAL FRAC COMPARISON: Multiple since 2009 TECHNIQUE: Standard craniocaudal and mediolateral oblique views of each breast recorded using digita l acquisition. LIMITATIONS: None. FINDINGS: Findings present which are benign by mammographic criteria. No suspicious masses, calcifi cations or architectural distortion. Pertinent benign findings: Stable benign bilateral breast parenchymal and vascular calcifications. Read with the assistance of CAD. .[facility] - R2 Cenova Version 1.3 .[facility] Imaging - R2 Cenova Version 1.3 .[facility] - R2 Cenova Version 2.4 .[facility] [place] - R2 Cenova Version 2.4 .[facility] - R2 [employer] Version 9.2 Benign mammographic findings may include one or more of the following: Smooth masses, popcorn/rim/co arse calcifications, asymmetries, post-procedure changes, and lesions with long-standing stability. IMPRESSION: BENIGN MAMMOGRAPHIC FINDINGS. BIRADS 2 BREAST DENSITY: c. The breasts are heterogeneously dense, which may obscure small masses. BIRAD: 2 BENIGN FINDING(S) RECOMMENDATION: ROUTINE SCREENING Please continue yearly bilateral screening mammography/tomosynthesis in June 2019 COMMENT: The patient has been notified of the results by letter per [place] requirements. Additional no tification policies are in place for contacting patient with suspicious or incomplete findings. Quality ID #[id number]: The [employer] recommends an annual screening mammogram for women aged 40 years or over. This facility utilizes a reminder system to ensure that all patients receive reminder letters, and/or direct phone calls for appointments. This includes reminders for routine scr eening mammograms, diagnostic mammograms, or other Breast Imaging Interventions when appropriate. Th is patient will be placed in the appropriate reminder system. The [employer] (ACR) has developed recommendations for screening MRI of the breast s in certain patient populations, to be used in conjunction with mammography. Breast MRI surveillanc e may be appropriate for women with more than 20% lifetime risk of developing breast cancer as deter mined by genetic testing, significant family history of the disease, or history of mantle radiation f or Hodgkins Disease. ACR Practice Guidelines 2008. TECHNICAL DOCUMENTATION: FINDING NUMBER: (1) ASSESSMENT: (1) JOB ID: [id number] [employer]- All Rights Reserved Reading location - IP/workstation name: [email or web address]
--- NOTE | 2018-07-10 14:17 | WOMENS IMAGING REPORT ---
EXAM DESCRIPTION: BONE DENSITY HIP/SPINE COMPLETED DATE/TIME: 07/10/2018 1:36 pm REASON FOR STUDY: M81.0 Z12.31 ENCNTR SCREEN MAMMOGRAM FOR MALIGNANT NEOPLASM OF AKIKO M81.0 AGE-REL ATED OSTEOPOROSIS W/O CURRENT PATHOLOGICAL FRAC COMPARISON: 07/08/2016 TECHNIQUE: Dual-Energy X-ray Absorptiometry (DEXA) of the AP Spine and Hip. LIMITATIONS: None. FINDINGS: LUMBAR SPINE: The bone mineral density (BMD) measured from L1-L4 in the AP projection correlates with a T-score of -2.3, which is osteopenia as defined by the World Health Organization. HIP: The bone mineral density (BMD) measured in the left hip correlates with a T-score of -2.5 in the femo ral neck, which is osteoporosis as defined by the World Health Organization. IMPRESSION: 1. LUMBAR SPINE: Osteopenia 2. HIP: Osteoporosis COMMENT: The World Health Organization defines low BMD as follows: T-score: Normal: Greater than -1.0 Osteopenia: Between -1.0 and -2.5 Osteoporosis: Less than -2.5 without fractures Established osteoporosis: Less than -2.5 with fractures In general, you may wish to consider: Diagnosis Treatment Follow-up DEXA Normal BMD Prevention 2-3 years Osteopenia Prevention/Therapy 1-2 years Osteoporosis Therapy Yearly TECHNICAL DOCUMENTATION: JOB ID: [id number]- All Rights Reserved Reading location - IP/workstation name: [email or web address]
== END ==
LOC: WI 09:17
PROVIDERS: ATTEND Family Medicine
DX: Z12.31 Encounter for screening mammogram for malignant neoplasm of breast (principal); M81.0 Age-related osteoporosis without current pathological fracture; M85.88 Other specified disorders of bone density and structure, other site
CPT/HCPCS: 77067; 77080

== ENCOUNTER 2018-08-11 10:57 | Emergency (ER) | payer MEDICARE, MEDICAID ==
[2018-08-11 11:25] VITALS: BP 140/56
--- NOTE | 2018-08-11 12:02 | ER Document Report ---
ED Medical Screen (RME) - General Chief Complaint: Fall Stated Complaint: FALL Time Seen by Provider: 08/11/18 11:54 Primary Care Provider: CHANTELL HUNTER MD [Primary Care Provider] - Follow up as needed Mode of Arrival: Ambulatory Information source: Patient Notes: This is an 83-year-old female with a history of heart disease (on Eliquis, pacemaker) who presents to the emergency room with some dizziness and persistent facial tenderness after falling and hitting her face 4 days ago. Patient was putting on her shoes and bending over at the time when she fell down. She denies any loss of consciousness. She has bruising to the face along with a nodule over the right eyebrow. TRAVEL OUTSIDE OF THE [place] IN LAST 30 DAYS: No - HPI Onset: Last week Onset/Duration: Gradual Quality of pain: Dull Severity: Mild Pain Level: 1 Associated Symptoms: denies: Chest pain, Diarrhea, Nausea, Shortness of breath Exacerbated by: Denies Relieved by: Denies Similar symptoms previously: No Recently seen / treated by doctor: No - Related Data Smoking: Non-smoker Frequency of alcohol use: None Drug Abuse: None Allergies/Adverse Reactions: Penicillins Allergy (Mild, Verified 08/11/18 10:58) Hives celecoxib Allergy (Verified 08/11/18 10:58) Past Medical History - General Information source: Patient, Relative - Social History Cigarette use (# per day): No Chew tobacco use (# tins/day): No Frequency of alcohol use: None Drug Abuse: None Lives with: Family Family history: None - Past Medical History Cardiac Medical History: Reports: Hx Coronary Artery Disease, Hx Hypercholesterolemia, Hx Hypertension Denies: Hx Heart Attack Pulmonary Medical History: Reports: Hx Asthma, Hx COPD Denies: Hx Bronchitis, Hx Pneumonia Neurological Medical History: Denies: Hx Cerebrovascular Accident, Hx Seizures Renal/ Medical History: Denies: Hx Peritoneal Dialysis GI Medical History: Reports: Hx Gastroesophageal Reflux Disease Musculoskeltal Medical History: Reports Hx Arthritis Past Surgical History: Reports: Hx Cardiac Surgery - paced, Hx Orthopedic Surgery - cervical fusion, Hx Pacemaker. Denies: Hx Hysterectomy - Immunizations Hx Diphtheria, Pertussis, Tetanus Vaccination: No Review of Systems - Review of Systems Constitutional: denies: Chills, Fever EENT: See HPI Cardiovascular: denies: Chest pain, Palpitations, Heart racing Respiratory: denies: Cough, Short of breath Gastrointestinal: denies: Abdomen distended, Abdominal pain, Diarrhea Genitourinary: No symptoms reported Female Genitourinary: No symptoms reported Musculoskeletal: See HPI Skin: See HPI Hematologic/Lymphatic: No symptoms reported Neurological/Psychological: Headaches, Other - Lightheadedness. denies: Confusion, Weakness Physical Exam - Vital signs Vitals: Temp Pulse Resp BP Pulse Ox 98.3 F 63 16 140/56 H 99 08/11/18 11:24 08/11/18 11:24 08/11/18 11:24 08/11/18 11:24 08/11/18 11:24 Notes: Physical exam: GENERAL: 83-year-old female, alert and oriented x3, no acute distress, conversant, joking, appears to be in good spirits. HEAD: She does have bruising under both eyes and a little over the bridge of the nose. She does have a mildly tender nodule over the right eye brow without any erythema or discoloration. EYES: Pupils equal round and reactive to light, extraocular movements intact, sclera anicteric, conjunctiva are normal. ENT: TMs normal, nares patent, oropharynx clear without exudates. Moist mucous membranes. NECK: Normal range of motion, supple without obvious mass or JVD. LUNGS: Breath sounds clear to auscultation bilaterally and equal. No wheezes rales or rhonchi. HEART: Patient's heart rate is regular. She does have a 3/6 systolic murmur at the left lateral sternal border. ABDOMEN: Soft, normoactive bowel sounds. No tenderness to palpation. No guarding, no rebound. No masses appreciated. EXTREMITIES: Normal range of motion, no pitting or edema. No clubbing or cyanosis. NEUROLOGICAL: Cranial nerves II through XII grossly intact. Normal speech, moving all extremities. PSYCH: Normal mood, normal affect. SKIN: Warm, Dry, normal turgor, no rashes or lesions noted. Course - Vital Signs Vital signs: Temp Pulse Resp BP Pulse Ox 98.3 F 63 16 140/56 H 99 08/11/18 11:24 08/11/18 11:24 08/11/18 11:24 08/11/18 11:24 08/11/18 11:24 - Diagnostic Test Radiology reviewed: Image reviewed, Reports reviewed - CT of the head shows no acute bleed or bony injury Doctor's Discharge - Discharge Clinical Impression: Concussion mild, Status post fall Contusion of face Qualifiers: Encounter type: initial encounter Qualified Code(s): S00.83XA - Contusion of other part of head, initial encounter Condition: Stable Disposition: HOME, SELF-CARE Additional Instructions: As we discussed, the CT of the head showed no bleeding. The bones around the face were intact. Due to the blood thinners, the bruising will take longer to heal. Return to the ER for worsening headaches, worsening pain or worsening bruising or any concerns or getting worse. Referrals: CHANTELL HUNTER MD [Primary Care Provider] - Follow up as needed
--- NOTE | 2018-08-11 12:35 | RADIOLOGY REPORT (SQ) ---
EXAM DESCRIPTION: CT HEAD WITHOUT COMPLETED DATE/TIME: 08/11/2018 12:18 pm REASON FOR STUDY: fall, hit head- on Eliquis COMPARISON: CT brain 02/17/2007, 05/27/2010, 12/22/2013 TECHNIQUE: Axial images acquired through the brain without intravenous contrast. Images reviewed wi th bone, brain and subdural windows. Additional sagittal and coronal reconstructions were generated. Images stored on PACS. All CT scanners at this facility use dose modulation, iterative reconstruction, and/or weight based d osing when appropriate to reduce radiation dose to as low as reasonably achievable (ALARA). [facility]: Dose Right [facility]: CareDose [facility]: Dose Right [facility]: Teradose 4D [facility]: [employer] RADIATION DOSE: CT Rad equipment meets quality standard of care and radiation dose reduction techniq ues were employed. CTDIvol: 53.2 mGy. DLP: 964 mGy-cm. mGy. LIMITATIONS: None. FINDINGS: VENTRICLES: Normal size and contour. CEREBRUM: No masses. No hemorrhage. No midline shift. No evidence for acute infarction. Normal gra y/white matter differentiation. No areas of low density in the white matter. CEREBELLUM: No masses. No hemorrhage. No alteration of density. No evidence for acute infarction. EXTRAAXIAL SPACES: No fluid collections. No masses. ORBITS AND GLOBE: No intra- or extraconal masses. Normal contour of globe without masses. CALVARIUM: No fracture. PARANASAL SINUSES: No fluid or mucosal thickening. SOFT TISSUES: No mass or hematoma. OTHER: No other significant finding. IMPRESSION: NORMAL BRAIN CT WITHOUT CONTRAST. EVIDENCE OF ACUTE STROKE: NO. COMMENT: Quality ID # [id number]: Final reports with documentation of one or more dose reduction techniques (e.g., Automated exposure control, adjustment of the mA and/or kV according to patient size, use of iterative reconstruction technique) TECHNICAL DOCUMENTATION: JOB ID: [id number] [employer]- All Rights Reserved Reading location - IP/workstation name: [email or web address]
== END 2018-08-11 13:16 | disposition home or self-care (01) ==
LOC: ER 10:57
DX: S06.0X9A Concussion with loss of consciousness of unspecified duration, initial encounter (principal); S00.83XA Contusion of other part of head, initial encounter; W19.XXXA Unspecified fall, initial encounter; I25.10 Atherosclerotic heart disease of native coronary artery without angina pectoris; E78.00 Pure hypercholesterolemia, unspecified; I10 Essential (primary) hypertension; J44.9 Chronic obstructive pulmonary disease, unspecified; Z79.02 Long term (current) use of antithrombotics/antiplatelets; Z95.1 Presence of aortocoronary bypass graft; Z88.0 Allergy status to penicillin; Z98.1 Arthrodesis status
CPT/HCPCS: 70450; 99283

== ENCOUNTER → 2018-09-07 | Outpatient (CLI) | payer MEDICARE, MEDICAID ==
[2018-09-07 16:50] LABS: INTERNATIONAL RATION (INR) 0.94; PROTHROMBIN TIME 13.1 SEC (11.4-15.4)
[2018-09-07 16:51] LABS: PARTIAL THROMBOPLASTIN TIME 31.2 SEC (23.5-35.8)
== END ==
LOC: OD 15:02
PROVIDERS: ATTEND Student in an Organized Health Care Education/Training Program
DX: D68.9 Coagulation defect, unspecified (principal)
CPT/HCPCS: 36415; 85610; 85730

== ENCOUNTER → 2018-10-05 | Outpatient (CLI) | payer MEDICARE, MEDICAID ==
[2018-10-05 10:31] LABS: ALANINE AMINOTRANSFERASE 20 U/L (9-52); ALBUMIN 3.9 g/dL (3.5-5.0); ALKALINE PHOSPHATASE 83 U/L (38-126); ASPARTATE AMINO TRANSFERASE 22 U/L (14-36); BILIRUBIN,DIRECT 0.2 mg/dL (0.0-0.4); BILIRUBIN,TOTAL 0.6 mg/dL (0.2-1.3); CHOLESTEROL 104.72 mg/dL (0-200); CREATINE KINASE 49 U/L (30-135); TOTAL PROTEIN 6.4 g/dL (6.3-8.2); TRIGLYCERIDES 101 mg/dL (<150)
[2018-10-05 10:41] LABS: DIRECT LDL 45 mg/dL (<100)
== END ==
LOC: OD 08:31
PROVIDERS: ATTEND Family Medicine
DX: E78.5 Hyperlipidemia, unspecified (principal)
CPT/HCPCS: 36415; 80061; 80076; 82550

== ENCOUNTER → 2019-01-11 | Outpatient (CLI) | payer MEDICARE, MEDICAID ==
[2019-01-11 09:08] LABS: ABSOLUTE EOSINOPHILS # (AUTO) 0.1 10^3/uL (0.0-0.6); ABSOLUTE LYMPHOCYTES (AUTO) 1.7 10^3/uL (0.5-4.7); ABSOLUTE MONOCYTES (AUTO) 0.6 10^3/uL (0.1-1.4); ABSOLUTE NEUT (AUTO) 3.6 10^3/uL (1.7-8.2); BASOPHILS % (AUTO) 0.6 % (0-2); EOSINOPHILS % (AUTO) 1.5 % (0-6); HEMATOCRIT 34.5 % (36.0-47.0); HEMOGLOBIN 11.4 g/dL (12.0-15.5); LYMPHOCYTES % (AUTO) 28.3 % (13-45); MEAN CORPUSCULAR HEMOGLOBIN 27.3 pg (27.0-33.4); MEAN CORPUSCULAR HGB CONC 33.1 g/dL (32.0-36.0); MEAN CORPUSCULAR VOLUME 83 fl (80-97); MONOCYTES % (AUTO) 9.8 % (3-13); PLATELET COUNT 220 10^3/uL (150-450); RED BLOOD COUNT 4.18 10^6/uL (3.72-5.28); RED CELL DISTRIBUTION WIDTH 16.3 % (11.5-14.0); SEGMENTED NEUTROPHILS % (AUTO) 59.8 % (42-78); TOTAL CELLS COUNTED % (AUTO) 100 %; WHITE BLOOD COUNT 6.1 10^3/uL (4.0-10.5)
[2019-01-11 09:27] LABS: ALANINE AMINOTRANSFERASE 25 U/L (9-52); ALBUMIN 3.8 g/dL (3.5-5.0); ALKALINE PHOSPHATASE 67 U/L (38-126); ANION GAP 7 (5-19); ASPARTATE AMINO TRANSFERASE 20 U/L (14-36); BILIRUBIN,DIRECT 0.3 mg/dL (0.0-0.4); BILIRUBIN,TOTAL 0.5 mg/dL (0.2-1.3); BLOOD UREA NITROGEN 21 mg/dL (7-20); CARBON DIOXIDE 30 mmol/L (22-30); CHLORIDE 101 mmol/L (98-107); CHOLESTEROL 130.32 mg/dL (0-200); CREATINE KINASE 60 U/L (30-135); GLUCOSE 102 mg/dL (75-110); POTASSIUM 4.4 mmol/L (3.6-5.0); SODIUM 138.3 mmol/L (137-145); TOTAL PROTEIN 6.6 g/dL (6.3-8.2); TRIGLYCERIDES 120 mg/dL (<150)
[2019-01-11 09:38] LABS: DIRECT LDL 62 mg/dL (<100)
== END ==
LOC: OD 08:09
PROVIDERS: ATTEND Family Medicine
DX: E55.9 Vitamin D deficiency, unspecified (principal); E78.5 Hyperlipidemia, unspecified; R73.01 Impaired fasting glucose; E53.8 Deficiency of other specified B group vitamins; Z79.01 Long term (current) use of anticoagulants
CPT/HCPCS: 36415; 80053; 80061; 82306; 82550; 82607; 83036; 85025

== ENCOUNTER 2019-03-21 12:53 | Emergency (ER) | payer MEDICARE, MEDICAID ==
--- NOTE | 2019-03-21 14:15 | ER Document Report ---
ED Medical Screen (RME) - General Chief Complaint: Fall Injury Stated Complaint: FALL/SIDE PAIN Time Seen by Provider: 03/21/19 14:07 Primary Care Provider: CHANTELL HUNTER MD [Primary Care Provider] - Follow up as needed Notes: Patient is an 83-year-old female with a history of hypertension, A. fib who is on Eliquis who presents to the emergency department with a chief complaint of right rib pain. Patient states last night around 10 PM and she was in the shower when she slipped and fell onto her right side. Patient states that when she fell the right side of her ribs struck a shower chair. Patient states she did not hit her head or lose consciousness. Patient states this was the only injury. Patient states she is having right rib pain that is worse with movement, cough and deep breathing. Patient does report bruising over the right posterior rib area. Patient states she has not taken anything for her pain or discomfort. TRAVEL OUTSIDE OF THE [place] IN LAST 30 DAYS: No - Related Data Allergies/Adverse Reactions: Penicillins Allergy (Mild, Verified 03/21/19 12:54) Hives celecoxib Allergy (Verified 03/21/19 12:54) Past Medical History - Social History Family history: None - Past Medical History Cardiac Medical History: Reports: Hx Coronary Artery Disease, Hx Hypercholesterolemia, Hx Hypertension Denies: Hx Heart Attack Pulmonary Medical History: Reports: Hx Asthma, Hx COPD Denies: Hx Bronchitis, Hx Pneumonia Neurological Medical History: Denies: Hx Cerebrovascular Accident, Hx Seizures Renal/ Medical History: Denies: Hx Peritoneal Dialysis GI Medical History: Reports: Hx Gastroesophageal Reflux Disease Musculoskeltal Medical History: Reports Hx Arthritis Past Surgical History: Reports: Hx Cardiac Surgery - paced, Hx Orthopedic Surgery - cervical fusion, Hx Pacemaker. Denies: Hx Hysterectomy - Immunizations Hx Diphtheria, Pertussis, Tetanus Vaccination: No Physical Exam - Vital signs Vitals: Temp Pulse Resp BP Pulse Ox 98.5 F 60 17 172/47 H 94 03/21/19 12:59 03/21/19 12:59 03/21/19 12:59 03/21/19 12:59 03/21/19 12:59 - Respiratory Respiratory status: No respiratory distress Chest status: Nontender Breath sounds: Normal Chest palpation: Normal - Back Notes: Ecchymosis noted over the right posterior lower ribs. There is significant tenderness over the right lateral and posterior ribs. No crepitus or subcutaneous emphysema noted. Course - Re-evaluation Re-evalutation: 03/21/19 14:15 I have greeted and performed a rapid initial assessment of this patient. A comprehensive ED assessment and evaluation of the patient, analysis of test results and completion of the medical decision making process will be conducted by additional ED providers. - Vital Signs Vital signs: Temp Pulse Resp BP Pulse Ox 98.5 F 60 17 172/47 H 94 03/21/19 12:59 03/21/19 12:59 03/21/19 12:59 03/21/19 12:59 03/21/19 12:59 Doctor's Discharge - Discharge Referrals: CHANTELL HUNTER MD [Primary Care Provider] - Follow up as needed
[2019-03-21] MEDS ORDERED: ACETAMINOPHEN 325 MG TABLET PO ONE (14:17)
--- NOTE | 2019-03-21 14:55 | RADIOLOGY REPORT (SQ) ---
EXAM DESCRIPTION: RIBS RIGHT W/PA CHEST COMPLETED DATE/TIME: 03/21/2019 2:36 pm REASON FOR STUDY: fall, right lateral and posterior right pain COMPARISON: None. TECHNIQUE: Frontal view of the chest and additional views of the right ribs acquired. NUMBER OF VIEWS: Four view. LIMITATIONS: None. FINDINGS: FRONTAL CXR: No pneumothorax. No pleural effusion. No atelectasis or infiltrates. RIBS: Fracture of the lateral 8th rib. No lytic or blastic bony lesions. OTHER: No other significant finding. IMPRESSION: FRACTURE OF THE LATERAL RIGHT 8TH RIB. COMMENT: SITE OF TRAUMA/COMPLAINT MARKED/STAMP COMPLETED: YES. TECHNICAL DOCUMENTATION: JOB ID: [id number] [employer]- All Rights Reserved Reading location - IP/workstation name: [email or web address]
[2019-03-21] MEDS ORDERED: HYDROCODONE/ACETAMINOPHEN 5-325 MG TABLET PO ONE (16:59)
--- NOTE | 2019-03-21 17:01 | ER Document Report ---
ED Fall - General Chief Complaint: Fall Injury Stated Complaint: FALL/SIDE PAIN Time Seen by Provider: 03/21/19 14:07 Primary Care Provider: CHANTELL HUNTER MD [Primary Care Provider] - Follow up in 3-5 days Notes: Patient is an 83-year-old female who presents emergency department after a fall. Her fall happened last night. She was in the shower and she slipped and hit her right side on a shower chair. She noticed some bruising to the right side. Patient states that whenever she takes a deep breath then she ends up having pain. She is currently on Eliquis. She also has a pacemaker. Denies hitting her head. Denies loss of consciousness. Patient's chest x-ray and rib x-ray ordered in triage shows that the patient has an 8th rib fracture. TRAVEL OUTSIDE OF THE [place] IN LAST 30 DAYS: No - Related data Allergies/Adverse Reactions: Penicillins Allergy (Mild, Verified 03/21/19 12:54) Hives celecoxib Allergy (Verified 03/21/19 12:54) Past Medical History - General Information source: Patient - Social History Smoking Status: Never Smoker Chew tobacco use (# tins/day): No Frequency of alcohol use: None Drug Abuse: None Family History: Other Patient has suicidal ideation: No Patient has homicidal ideation: No - Past Medical History Cardiac Medical History: Reports: Hx Coronary Artery Disease, Hx Hypercholesterolemia, Hx Hypertension Denies: Hx Heart Attack Pulmonary Medical History: Reports: Hx Asthma, Hx COPD Denies: Hx Bronchitis, Hx Pneumonia Neurological Medical History: Denies: Hx Cerebrovascular Accident, Hx Seizures Renal/ Medical History: Denies: Hx Peritoneal Dialysis GI Medical History: Reports: Hx Gastroesophageal Reflux Disease Musculoskeletal Medical History: Reports Hx Arthritis Past Surgical History: Reports: Hx Cardiac Surgery - paced, Hx Orthopedic Surgery - cervical fusion, Hx Pacemaker. Denies: Hx Hysterectomy - Immunizations Hx Diphtheria, Pertussis, Tetanus Vaccination: No Hx Pneumococcal Vaccination: 07/21/07 Review of Systems - Review of Systems Notes: REVIEW OF SYSTEMS: CONSTITUTIONAL : Denies recent illness. Denies recent unintentional weight loss. Denies fever, chills, or sweats. EENT: Denies eye, ear, throat, or mouth pain, discharge, or symptoms. Denies nasal or sinus congestion. CARDIOVASCULAR: Denies chest pain. RESPIRATORY: See HPI. GASTROINTESTINAL: Denies nausea, vomiting, and diarrhea. Denies abdominal pain. Denies constipation. GENITOURINARY: Denies difficulty urinating, burning, blood in urine, urgency or frequency. MUSCULOSKELETAL: See HPI. SKIN: Denies rash, itchiness, or lesions HEMATOLOGIC : Denies easy bruising or bleeding. LYMPHATIC: Denies swollen, painful, enlarged glands. NEUROLOGICAL: Denies no numbness or tingling denies weakness. Denies headache. Denies altered mental status. Denies alteration in speech. PSYCHIATRIC: Denies stress, anxiety, alteration in sleep patterns, or depression. All other systems reviewed and negative. Physical Exam - Vital signs Vitals: Temp Pulse Resp BP Pulse Ox 98.5 F 60 17 172/47 H 94 03/21/19 12:59 03/21/19 12:59 03/21/19 12:59 03/21/19 12:59 03/21/19 12:59 - Notes Notes: PHYSICAL EXAMINATION: GENERAL: Appears well, healthy, well-nourished, no acute distress. HEAD: Normocephalic, atraumatic. EYES: PERRL, conjunctiva normal, all extraocular movements intact, sclera nonicteric ENT: Moist mucous membranes. NECK: Supple, no noticeable swelling, redness, rash. Normal range of motion. LUNGS: Equal breath sounds bilaterally and clear to auscultation. No wheezes rales or rhonchi. CARDIOVASCULAR: S1-S2, regular rate, regular rhythm. Radial pulses 2+, normal. ABDOMEN: Normoactive bowel sounds. Soft, nontender, no guarding, no rebound tenderness, and no masses palpated. EXTREMITIES: Normal strength and range of motion, no pitting or edema. No cyanosis. NEUROLOGICAL: Moves all extremities upon command. Strength 5/5 in all extremities. PSYCH: Normal mood, normal affect. SKIN: Warm, dry. No rash, lesions, ulcerations noted. Normal skin turgor. CHEST WALL: Tenderness to right sided chest. Mild amount of bruising noted. Course - Re-evaluation Re-evalutation: 03/21/19 19:[address] of the chest shows fractures to the seventh, eighth, and ninth ribs. There is a small right pleural effusion. She also has some atelectasis. No pneumothorax or hemothorax noted. The patient will be sent home with an incentive spirometer to help with increasing her lung volumes to prevent p neumonia. Patient was taught how to splint her ribs for taking nice deep breaths. She will follow-up with her primary care provider. She also be sent home with pain medication to help with her fractures. Follow-up precautions were given. Verbal discharge instructions were given to the patient. They verbalized understanding. They are stable for discharge. - Vital Signs Vital signs: Temp Pulse Resp BP Pulse Ox 98.5 F 60 17 172/47 H 94 03/21/19 12:59 03/21/19 12:59 03/21/19 12:59 03/21/19 12:59 03/21/19 12:59 - Laboratory Result Diagrams: 03/21/19 17:30 Laboratory results interpreted by me: 03/21/19 17:30 Sodium 135.6 L Potassium 3.5 L Glucose 137 H Discharge - Discharge Clinical Impression: Rib fractures Qualifiers: Encounter type: initial encounter Rib fracture type: multiple ribs Fracture type: closed Laterality: right Qualified Code(s): S22.41XA - Multiple fractures of ribs, right side, initial encounter for closed fracture Condition: Stable Disposition: HOME, SELF-CARE Additional Instructions: You were seen today in the emergency department for rib fractures. There is no major bleeding. You have a small collection of fluid on the right side, but no intervention is needed at this time. You are being sent home with an incentive spirometer to help keep your lungs open. Please use this 10 times an hour while awake. Please follow-up with your primary care provider. You are also being sent home with pain medication. Please take this medication as needed. Prescriptions: Hydrocodone/Acetaminophen [[place] 5-325 mg Tablet] 1 tab PO Q4HP PRN #20 tablet PRN Reason: Referrals: CHANTELL HUNTER MD [Primary Care Provider] - Follow up in 3-5 days
[2019-03-21] MEDS ORDERED: MORPHINE SULFATE 10 MG/ML INJ IV ONE (17:07)
[2019-03-21 18:06] LABS: ANION GAP 8 (5-19); BLOOD UREA NITROGEN 20 mg/dL (7-20); CALCIUM 8.6 mg/dL (8.4-10.2); CARBON DIOXIDE 28 mmol/L (22-30); CHLORIDE 100 mmol/L (98-107); GLUCOSE 137 mg/dL (75-110); POTASSIUM 3.5 mmol/L (3.6-5.0)
--- NOTE | 2019-03-21 19:15 | RADIOLOGY REPORT (SQ) ---
EXAM DESCRIPTION: CT CHEST WITH COMPLETED DATE/TIME: 03/21/2019 6:58 pm REASON FOR STUDY: trauma; eval bleeding; COMPARISON: 12/16/2017 TECHNIQUE: CT scan of the chest performed using helical scanning technique with dynamic intravenous contrast injection. Images reviewed with lung, soft tissue and bone windows. Reconstructed coronal and sagittal MPR and MIP images reviewed. All images stored on PACS. All CT scanners at this facility use dose modulation, iterative reconstruction, and/or weight based d osing when appropriate to reduce radiation dose to as low as reasonably achievable (ALARA). [facility]: Dose Right [facility]: CareDose [facility]: Dose Right [facility]: Teradose 4D [facility]: Springr CONTRAST TYPE AND DOSE: contrast/concentration: Isovue 350.00 mg/ml; Total Contrast Delivered: 74.0 ml; Total Saline Delivered: 55.0 ml RENAL FUNCTION: GFR > 60. RADIATION DOSE: CT Rad equipment meets quality standard of care and radiation dose reduction techniq ues were employed. CTDIvol: 6.3 mGy. DLP: 200 mGy-cm. . LIMITATIONS: None. FINDINGS: LUNGS AND PLEURA: Small right pleural effusion. Small areas of right basilar subsegmental atelectasis. No pneumothorax. Chronic interstitial changes and apical subpleural scarring are pres ent. Right upper lobe, right middle lobe, and lingular bronchiectasis -parenchymal scarring. HILAR AND MEDIASTINAL STRUCTURES: No identified masses or abnormal nodes. HEART AND VASCULAR STRUCTURES: No aneurysm or dissection. No central pulmonary emboli. No pericardi al effusion. HARDWARE: Cardiac pacer. UPPER ABDOMEN: No significant findings. Limited exam. THYROID AND OTHER SOFT TISSUES: No masses. No adenopathy. BONES: Fractures of the right lateral 7th, 8th, and 9th ribs. OTHER: No other significant finding. IMPRESSION: Fractures of the right lateral 7th, 8th, and 9th ribs.Small right pleural effusion. Sma ll areas of right basilar subsegmental atelectasis. No pneumothorax. TECHNICAL DOCUMENTATION: JOB ID: [id number] Quality ID # [id number]: Final reports with documentation of one or more dose reduction techniques (e.g., Au tomated exposure control, adjustment of the mA and/or kV according to patient size, use of iterative reconstruction technique) 2010 [employer]- All Rights Reserved Reading location - IP/workstation name: [email or web address]
[2019-03-21 19:58] VITALS: BP 173/59
== END 2019-03-21 20:01 | disposition home or self-care (01) ==
LOC: ER 12:53
DX: S22.41XA Multiple fractures of ribs, right side, initial encounter for closed fracture (principal); W18.2XXA Fall in (into) shower or empty bathtub, initial encounter; Y93.89 Activity, other specified; J44.9 Chronic obstructive pulmonary disease, unspecified; J90 Pleural effusion, not elsewhere classified; J98.11 Atelectasis; I25.10 Atherosclerotic heart disease of native coronary artery without angina pectoris; I10 Essential (primary) hypertension; Z79.02 Long term (current) use of antithrombotics/antiplatelets; Z95.0 Presence of cardiac pacemaker; Z88.0 Allergy status to penicillin; Z88.8 Allergy status to other drugs, medicaments and biological substances
CPT/HCPCS: 99284; 96374; 36415; 80048; 71101; 71260; A9270; J2270

== ENCOUNTER → 2019-03-30 | Outpatient (CLI) | payer MEDICARE, MEDICAID ==
[2019-03-30 12:45] LABS: ABSOLUTE EOSINOPHILS # (AUTO) 0.2 10^3/uL (0.0-0.6); ABSOLUTE LYMPHOCYTES (AUTO) 1.5 10^3/uL (0.5-4.7); ABSOLUTE MONOCYTES (AUTO) 0.6 10^3/uL (0.1-1.4); ABSOLUTE NEUT (AUTO) 3.2 10^3/uL (1.7-8.2); BASOPHILS % (AUTO) 0.6 % (0-2); EOSINOPHILS % (AUTO) 3.3 % (0-6); HEMATOCRIT 32.7 % (36.0-47.0); HEMOGLOBIN 10.9 g/dL (12.0-15.5); LYMPHOCYTES % (AUTO) 26.9 % (13-45); MEAN CORPUSCULAR HGB CONC 33.3 g/dL (32.0-36.0); MEAN CORPUSCULAR VOLUME 84 fl (80-97); MONOCYTES % (AUTO) 10.9 % (3-13); PLATELET COUNT 235 10^3/uL (150-450); RED CELL DISTRIBUTION WIDTH 16.4 % (11.5-14.0); SEGMENTED NEUTROPHILS % (AUTO) 58.3 % (42-78); TOTAL CELLS COUNTED % (AUTO) 100 %; WHITE BLOOD COUNT 5.5 10^3/uL (4.0-10.5)
[2019-03-30 13:13] LABS: ALBUMIN 3.8 g/dL (3.5-5.0); ALKALINE PHOSPHATASE 75 U/L (38-126); ANION GAP 8 (5-19); ASPARTATE AMINO TRANSFERASE 25 U/L (14-36); BILIRUBIN,DIRECT 0.1 mg/dL (0.0-0.4); BILIRUBIN,TOTAL 0.4 mg/dL (0.2-1.3); BLOOD UREA NITROGEN 37 mg/dL (7-20); CALCIUM 9.5 mg/dL (8.4-10.2); CARBON DIOXIDE 30 mmol/L (22-30); CHLORIDE 96 mmol/L (98-107); GLUCOSE 89 mg/dL (75-110); POTASSIUM 4.8 mmol/L (3.6-5.0); TOTAL PROTEIN 6.4 g/dL (6.3-8.2)
== END ==
LOC: OD 12:04
PROVIDERS: ATTEND Family Medicine
DX: E53.8 Deficiency of other specified B group vitamins (principal); E87.6 Hypokalemia; E55.9 Vitamin D deficiency, unspecified; Z79.01 Long term (current) use of anticoagulants
CPT/HCPCS: 36415; 80053; 82306; 82607; 83735; 85025

== ENCOUNTER → 2019-04-27 | Outpatient (CLI) | payer MEDICARE, MEDICAID ==
--- NOTE | 2019-04-27 13:05 | RADIOLOGY REPORT (SQ) ---
EXAM DESCRIPTION: RIBS RIGHT W/PA CHEST COMPLETED DATE/TIME: 04/27/2019 10:23 am REASON FOR STUDY: MULTIPLE FX OF RIBS S22.41XA MULTIPLE FRACTURES OF RIBS, RIGHT SIDE, INIT FOR CL COMPARISON: 03/21/2019 TECHNIQUE: Frontal view of the chest and additional views of the right ribs acquired. NUMBER OF VIEWS: Five views LIMITATIONS: None. FINDINGS: FRONTAL CXR: No pneumothorax. No pleural effusion. No atelectasis or infiltrates. RIBS: There are fractures of the right 9th and 10th ribs laterally. OTHER: No other significant finding. IMPRESSION: There are fractures of the right 9th and 10th ribs. COMMENT: SITE OF TRAUMA/COMPLAINT MARKED/STAMP COMPLETED: Yes TECHNICAL DOCUMENTATION: JOB ID: [id number] [employer]- All Rights Reserved Reading location - IP/workstation name: [email or web address]
== END ==
LOC: OD 10:12
PROVIDERS: ATTEND Family Medicine
DX: S22.41XA Multiple fractures of ribs, right side, initial encounter for closed fracture (principal); X58.XXXA Exposure to other specified factors, initial encounter

== ENCOUNTER → 2019-06-28 | Outpatient (CLI) | payer MEDICARE, MEDICAID ==
[2019-06-28 13:14] LABS: ABSOLUTE EOSINOPHILS # (AUTO) 0.1 10^3/uL (0.0-0.6); ABSOLUTE LYMPHOCYTES (AUTO) 1.6 10^3/uL (0.5-4.7); ABSOLUTE MONOCYTES (AUTO) 0.5 10^3/uL (0.1-1.4); ABSOLUTE NEUT (AUTO) 3.2 10^3/uL (1.7-8.2); BASOPHILS % (AUTO) 0.5 % (0-2); EOSINOPHILS % (AUTO) 2.1 % (0-6); HEMATOCRIT 34.3 % (36.0-47.0); HEMOGLOBIN 11.3 g/dL (12.0-15.5); LYMPHOCYTES % (AUTO) 29.1 % (13-45); MEAN CORPUSCULAR HEMOGLOBIN 27.6 pg (27.0-33.4); MEAN CORPUSCULAR VOLUME 84 fl (80-97); MONOCYTES % (AUTO) 9.5 % (3-13); PLATELET COUNT 223 10^3/uL (150-450); RED BLOOD COUNT 4.09 10^6/uL (3.72-5.28); RED CELL DISTRIBUTION WIDTH 16.3 % (11.5-14.0); SEGMENTED NEUTROPHILS % (AUTO) 58.8 % (42-78); TOTAL CELLS COUNTED % (AUTO) 100 %; WHITE BLOOD COUNT 5.4 10^3/uL (4.0-10.5)
[2019-06-28 13:36] LABS: ALBUMIN 3.8 g/dL (3.5-5.0); ALKALINE PHOSPHATASE 69 U/L (38-126); ANION GAP 9 (5-19); ASPARTATE AMINO TRANSFERASE 24 U/L (14-36); BILIRUBIN,DIRECT 0.1 mg/dL (0.0-0.4); BILIRUBIN,TOTAL 0.6 mg/dL (0.2-1.3); BLOOD UREA NITROGEN 18 mg/dL (7-20); CARBON DIOXIDE 29 mmol/L (22-30); CHLORIDE 97 mmol/L (98-107); GLUCOSE 101 mg/dL (75-110); POTASSIUM 4.5 mmol/L (3.6-5.0); TOTAL PROTEIN 6.5 g/dL (6.3-8.2)
== END ==
LOC: OD 12:21
PROVIDERS: ATTEND Family Medicine
DX: R73.01 Impaired fasting glucose (principal); Z79.899 Other long term (current) drug therapy
CPT/HCPCS: 36415; 80048; 80076; 83036; 85025

== ENCOUNTER → 2019-07-13 | Outpatient (CLI) | payer MEDICARE, MEDICAID ==
--- NOTE | 2019-07-13 15:20 | WOMENS IMAGING REPORT ---
EXAM DESCRIPTION: 3D SCREENING MAMMO BILAT COMPLETED DATE/TIME: 07/13/2019 9:13 am REASON FOR STUDY: Z12.31 SCREENING MAMMO Z12.31 ENCNTR SCREEN MAMMOGRAM FOR MALIGNANT NEOPLASM OF B RE COMPARISON: Multiple since 2009 EXAM PARAMETERS: Standard craniocaudal and mediolateral oblique views of each breast recorded using digital acquisition and breast tomosynthesis. Read with the assistance of CAD. .[facility] - [employer] Version 9.2 LIMITATIONS: None. FINDINGS: Findings present which are benign by mammographic criteria. No suspicious masses, calcific ations or architectural distortion. Pertinent benign findings: Stable coarse dense benign bilateral breast parenchymal calcifications Benign mammographic findings may include one or more of the following: Smooth masses, popcorn/rim/coa rse calcifications, asymmetries, post-procedure changes, and lesions with long-standing stability. IMPRESSION: BENIGN MAMMOGRAPHIC FINDINGS. BIRADS 2 BREAST DENSITY: c. The breasts are heterogeneously dense, which may obscure small masses. BIRAD: ASSESSMENT: 2 BENIGN FINDING(S) RECOMMENDATION: ROUTINE SCREENING Please continue yearly bilateral screening mammography/tomosynthesis in June 2020. COMMENT: The patient has been notified of the results by letter per MQSA requirements. Additional no tification policies are in place for contacting patient with suspicious or incomplete findings. Quality ID #[id number]: The [employer] recommends an annual screening mammogram for women aged 40 years or over. This facility utilizes a reminder system to ensure that all patients receive reminder letters, and/or direct phone calls for appointments. This includes reminders for routine scr eening mammograms, diagnostic mammograms, or other Breast Imaging Interventions when appropriate. Th is patient will be placed in the appropriate reminder system. TECHNICAL DOCUMENTATION: FINDING NUMBER: (1) ASSESSMENT: (1) JOB ID: [id number] [employer])- All Rights Reserved Reading location - IP/workstation name: [email or web address]
== END ==
LOC: WI 08:45
PROVIDERS: ATTEND Family Medicine
DX: Z12.31 Encounter for screening mammogram for malignant neoplasm of breast (principal)
CPT/HCPCS: 77063; 77067

== ENCOUNTER 2019-08-31 16:48 | Emergency (ER) | payer MEDICARE, MEDICAID ==
[2019-08-31] MEDS ORDERED: NORMAL SALINE 1000 ML 1,000 ML IV ONE (17:26)
--- NOTE | 2019-08-31 17:26 | ER Document Report ---
ED Medical Screen (RME) - General Stated Complaint: GENREAL WEAKNESS Time Seen by Provider: 08/31/19 17:18 Primary Care Provider: CHANTELL HUNTER MD [Primary Care Provider] - Follow up as needed Mode of Arrival: Wheelchair Information source: Patient, Relative Notes: Patient presents emergency department for weakness low blood pressure [place] with a history of CHF and atrial fib. Reports vomiting. Patient reports she has been sick since August 21. Reports she got sick while she was on vacation in [place]. Denies cough. Patient has not received her flu vaccine. Patient reports she has been eating and drinking as normal. Per Dr. Hunter patient usually has a higher blood pressure. She is on multiple blood pressure medications. And she is also been treated for her shingles. I have greeted and performed a rapid initial assessment of this patient. A comprehensive ED assessment and evaluation of the patient, analysis of test results and completion of the medical decision making process will be conducted by additional ED providers. TRAVEL OUTSIDE OF THE [place] IN LAST 30 DAYS: No - Related Data Allergies/Adverse Reactions: Penicillins Allergy (Mild, Verified 03/21/19 12:54) Hives celecoxib Allergy (Verified 03/21/19 12:54) Past Medical History - Social History Family history: None - Past Medical History Cardiac Medical History: Reports: Hx Coronary Artery Disease, Hx Hypercholesterolemia, Hx Hypertension Denies: Hx Heart Attack Pulmonary Medical History: Reports: Hx Asthma, Hx COPD Denies: Hx Bronchitis, Hx Pneumonia Neurological Medical History: Denies: Hx Cerebrovascular Accident, Hx Seizures Renal/ Medical History: Denies: Hx Peritoneal Dialysis GI Medical History: Reports: Hx Gastroesophageal Reflux Disease Musculoskeltal Medical History: Reports Hx Arthritis Past Surgical History: Reports: Hx Cardiac Surgery - paced, Hx Orthopedic Surgery - cervical fusion, Hx Pacemaker. Denies: Hx Hysterectomy - Immunizations Hx Diphtheria, Pertussis, Tetanus Vaccination: No Physical Exam - Vital signs Vitals: Temp Pulse Resp BP Pulse Ox 97.4 F 62 14 72/33 L 97 08/31/19 17:12 08/31/19 17:12 08/31/19 17:12 08/31/19 17:12 08/31/19 17:12 Course - Vital Signs Vital signs: Temp Pulse Resp BP Pulse Ox 97.4 F 62 14 72/33 L 97 08/31/19 17:12 08/31/19 17:12 08/31/19 17:12 08/31/19 17:12 08/31/19 17:12 Doctor's Discharge - Discharge Referrals: CHANTELL HUNTER MD [Primary Care Provider] - Follow up as needed
[2019-08-31 18:28] LABS: A TYPE INFLUENZA AG NEGATIVE (NEGATIVE); B INFLUENZA AG NEGATIVE (NEGATIVE)
--- NOTE | 2019-08-31 18:34 | ER Document Report ---
ED General - General Chief Complaint: Low Blood Pressure Stated Complaint: GENREAL WEAKNESS Time Seen by Provider: 08/31/19 17:18 Primary Care Provider: CHANTELL HUNTER MD [Primary Care Provider] - Follow up as needed Mode of Arrival: Wheelchair TRAVEL OUTSIDE OF THE [place] IN LAST 30 DAYS: No - HPI Onset: Other - Rash started around Aug 21, low blood pressure and weakness started today Quality of pain: Burning Severity: Moderate Pain Level: 2 Associated symptoms: Other - rash on left chest and left back Exacerbated by: Other - exertion Relieved by: Remaining still Similar symptoms previously: No Recently seen / treated by doctor: Yes - Patient saw her PCP today Notes: 84 year old female with a history of CAD, Pacemaker, HTN, HLD, COPD, GERD, Arthritis sent to the ER from her PCPs office due to generalized weakness, dizziness, and low blood pressure. The patient has had a rash on her left chest, left torso, and left back since the Beginning of Februrary and she was told it is likely Shingles at her PCPs office today. The patient has not been treated for Shingles yet despite having lesions for about 10 days since today was the first time she saw a medical provider. The patient had been having some mild fevers but she has not had any recently. The patient denies chills, sweats, cough, congestion, urinary symptoms, decreased PO intake. - Related Data Allergies/Adverse Reactions: Penicillins Allergy (Mild, Verified 03/21/19 12:54) Hives celecoxib Allergy (Verified 03/21/19 12:54) Past Medical History - General Information source: Patient, Relative - Social History Smoking Status: Never Smoker Frequency of alcohol use: None Drug Abuse: None Lives with: Family Family History: Reviewed & Not Pertinent, Other Patient has suicidal ideation: No Patient has homicidal ideation: No - Past Medical History Cardiac Medical History: Reports: Hx Coronary Artery Disease, Hx Hyper cholesterolemia, Hx Hypertension Denies: Hx Heart Attack Pulmonary Medical History: Reports: Hx Asthma, Hx COPD Denies: Hx Bronchitis, Hx Pneumonia Neurological Medical History: Denies: Hx Cerebrovascular Accident, Hx Seizures Renal/ Medical History: Denies: Hx Peritoneal Dialysis GI Medical History: Reports: Hx Gastroesophageal Reflux Disease Musculoskeletal Medical History: Reports Hx Arthritis Past Surgical History: Reports: Hx Cardiac Surgery - paced, Hx Orthopedic Surgery - cervical fusion, Hx Pacemaker. Denies: Hx Hysterectomy - Immunizations Hx Diphtheria, Pertussis, Tetanus Vaccination: No Hx Pneumococcal Vaccination: 07/21/07 Review of Systems - Review of Systems Constitutional: No symptoms reported, Weakness EENT: No symptoms reported Cardiovascular: Dizziness, Other - low blood pressures Respiratory: No symptoms reported Gastrointestinal: No symptoms reported Genitourinary: No symptoms reported Female Genitourinary: No symptoms reported Musculoskeletal: No symptoms reported Skin: Rash - on left anterior chest, left lateral chest, and left posterior chest/thorax Hematologic/Lymphatic: No symptoms reported Neurological/Psychological: No symptoms reported -: Yes All other systems reviewed and negative Physical Exam - Vital signs Vitals: Temp Pulse Resp BP Pulse Ox 97.4 F 62 14 72/33 L 97 08/31/19 17:12 08/31/19 17:12 08/31/19 17:12 08/31/19 17:12 08/31/19 17:12 - Notes Notes: GENERAL: Well-appearing, well-nourished and in no acute distress. HEAD: Atraumatic, normocephalic. EYES: Pupils equal round and reactive to light, extraocular movements intact, sclera anicteric, conjunctiva are normal. ENT: TMs normal, nares patent, oropharynx clear without exudates. Moist mucous membranes. NECK: Normal range of motion, supple without lymphadenopathy or JVD. LUNGS: Breath sounds clear to auscultation bilaterally and equal. No wheezes rales or rhonchi. HEART: Regular rate and rhythm without murmurs, rubs or gallops. ABDOMEN: Soft, nontender, normoactive bowel sounds. No guarding, no rebound. No masses appreciated. EXTREMITIES: Normal range of motion, no pitting or edema. No clubbing or cyanosis. NEUROLOGICAL: Cranial nerves II through XII grossly intact. Normal speech, normal gait. PSYCH: Normal mood, normal affect. SKIN: Shingles rash on left anterior chest wall, left lateral chest wall, left posterior chest wall. Vesicles in various stages present with some scabbed over and some with clear fluid still present. Course - Re-evaluation Re-evalutation: 08/31/19 21:05 The patient was apparently hypotensive at her PCPs office in triage but after fluids she is not hypotensive. Patient clearly has Shingles. Will treat with Prednisone and Acyclovir. Patient told to orally hydrate at home as well. Patient's labs fairly unremarkable (she has a slightly low sodium and protein in her urine). Patient given 1L of NS and she felt comfortable being discharged since her BPs have been stable. No other infectious source identified on exam or in her work up in the ER. - Vital Signs Vital signs: Temp Pulse Resp BP Pulse Ox 97.4 F 60 16 180/65 H 91 L 08/31/19 17:12 08/31/19 20:22 08/31/19 21:01 08/31/19 21:01 08/31/19 21:01 - Laboratory Result Diagrams: 08/31/19 18:44 08/31/19 18:44 Laboratory results interpreted by me: 08/31/19 08/31/19 08/31/19 18:44 18:44 20:00 Hct 35.6 L RDW 16.5 H Sodium 129.2 L Chloride 93 L BUN 24 H Glucose 118 H Urine Protein 30 H Urine Ascorbic Acid 40 H - EKG Interpretation by Nm EKG shows normal: [place], Intervals, QRS Complexes Rate: Normal Rhythm: Other - Atrial Paced Additional EKG results interpreted by me: 08/31/19 19:04 T wave inversions in inferior leads. Discharge - Discharge Clinical Impression: Hypotension Qualifiers: Hypotension type: unspecified hypotension type Qualified Code(s): I95.9 - Hypotension, unspecified Shingles outbreak Qualifiers: Herpes zoster complications: without complications Qualified Code(s): B02.9 - Zoster without complications Condition: Stable Disposition: HOME, SELF-CARE Instructions: Hypotension ([facility]), Shingles ([facility]) Additional Instructions: Drink plenty of fluids in the days to come. Take Prednisone and Acyclovir as pr escribed. Follow up with your primary care doctor. Prescriptions: Prednisone [Deltasone 20 mg Tablet] 3 tab PO DAILY 4 Days #12 tablet Acyclovir [Zovirax 800 mg Tablet] 800 mg PO 5XD #25 tab Referrals: CHANTELL HUNTER MD [Primary Care Provider] - Follow up as needed
[2019-08-31] MEDS ORDERED: METHYLPREDNISOLONE INJ 125 MG/2 ML SDV IV ONE (18:53)
[2019-08-31] MEDS ORDERED: ACYCLOVIR 800 MG TABLET PO ONE (18:54)
[2019-08-31 19:10] LABS: ABSOLUTE BASOPHILS # (AUTO) 0.1 10^3/uL (0.0-0.2); ABSOLUTE EOSINOPHILS # (AUTO) 0.1 10^3/uL (0.0-0.6); ABSOLUTE LYMPHOCYTES (AUTO) 1.6 10^3/uL (0.5-4.7); ABSOLUTE MONOCYTES (AUTO) 0.8 10^3/uL (0.1-1.4); ABSOLUTE NEUT (AUTO) 4.4 10^3/uL (1.7-8.2); BASOPHILS % (AUTO) 0.9 % (0-2); EOSINOPHILS % (AUTO) 2.1 % (0-6); HEMATOCRIT 35.6 % (36.0-47.0); HEMOGLOBIN 12.2 g/dL (12.0-15.5); LYMPHOCYTES % (AUTO) 22.7 % (13-45); MEAN CORPUSCULAR HEMOGLOBIN 28.3 pg (27.0-33.4); MEAN CORPUSCULAR HGB CONC 34.3 g/dL (32.0-36.0); MEAN CORPUSCULAR VOLUME 83 fl (80-97); MONOCYTES % (AUTO) 11.8 % (3-13); PLATELET COUNT 310 10^3/uL (150-450); RED BLOOD COUNT 4.31 10^6/uL (3.72-5.28); RED CELL DISTRIBUTION WIDTH 16.5 % (11.5-14.0); SEGMENTED NEUTROPHILS % (AUTO) 62.5 % (42-78); TOTAL CELLS COUNTED % (AUTO) 100 %
[2019-08-31 19:27] LABS: ALBUMIN 3.8 g/dL (3.5-5.0); ALKALINE PHOSPHATASE 71 U/L (38-126); ANION GAP 9 (5-19); ASPARTATE AMINO TRANSFERASE 27 U/L (14-36); BILIRUBIN,TOTAL 0.5 mg/dL (0.2-1.3); BLOOD UREA NITROGEN 24 mg/dL (7-20); CALCIUM 9.4 mg/dL (8.4-10.2); CARBON DIOXIDE 27 mmol/L (22-30); CHLORIDE 93 mmol/L (98-107); GLUCOSE 118 mg/dL (75-110); POTASSIUM 4.8 mmol/L (3.6-5.0); TOTAL PROTEIN 6.7 g/dL (6.3-8.2)
[2019-08-31 20:35] LABS: APPEARANCE,URINE CLEAR; BILIRUBIN,URINE NEGATIVE (NEGATIVE); COLOR,URINE YELLOW; GLUCOSE, URINE NEGATIVE (NEGATIVE); KETONES,URINE NEGATIVE (NEGATIVE); LEUKOCYTE ESTERASE,URINE NEGATIVE (NEGATIVE); NITRITE,URINE NEGATIVE (NEGATIVE); PROTEIN,URINE 30 mg/dL (NEGATIVE); URINE SPECIFIC GRAVITY 1.008; UROBILINOGEN,URINE NEGATIVE mg/dL (<2.0)
[2019-08-31 21:09] VITALS: BP 180/65
--- NOTE | 2019-08-31 22:23 | EKG REPORT ---
SEVERITY:- ABNORMAL ECG - ATRIAL-PACED RHYTHM LVH WITH SECONDARY REPOLARIZATION ABNORMALITY BORDERLINE PROLONGED QT INTERVAL : Confirmed by: Ari Garcia MD 31-Aug-2019 22:22:37
== END 2019-08-31 21:29 | disposition home or self-care (01) ==
LOC: ER 16:48
DX: I95.9 Hypotension, unspecified (principal); B02.9 Zoster without complications; R53.1 Weakness; R42 Dizziness and giddiness; R80.9 Proteinuria, unspecified; I25.10 Atherosclerotic heart disease of native coronary artery without angina pectoris; J44.9 Chronic obstructive pulmonary disease, unspecified; I10 Essential (primary) hypertension; Z95.0 Presence of cardiac pacemaker; Z88.0 Allergy status to penicillin; Z88.8 Allergy status to other drugs, medicaments and biological substances
CPT/HCPCS: 36415; 80053; 81001; 83605; 85025; 87040; 87804; 93005; 93010; 96361; 96374; 99285; J2930; J3490; J7030

== ENCOUNTER 2019-09-15 11:18 | Emergency (ER) | payer MEDICARE, MEDICAID ==
[2019-09-15] MEDS ORDERED: NORMAL SALINE 1000 ML 1,000 ML IV ONE (12:00)
[2019-09-15 12:15] LABS: ABSOLUTE EOSINOPHILS # (AUTO) 0.2 10^3/uL (0.0-0.6); ABSOLUTE LYMPHOCYTES (AUTO) 1.3 10^3/uL (0.5-4.7); ABSOLUTE MONOCYTES (AUTO) 0.8 10^3/uL (0.1-1.4); ABSOLUTE NEUT (AUTO) 4.4 10^3/uL (1.7-8.2); BASOPHILS % (AUTO) 0.7 % (0-2); EOSINOPHILS % (AUTO) 3.2 % (0-6); HEMATOCRIT 30.9 % (36.0-47.0); HEMOGLOBIN 10.4 g/dL (12.0-15.5); LYMPHOCYTES % (AUTO) 19.2 % (13-45); MEAN CORPUSCULAR HEMOGLOBIN 28.7 pg (27.0-33.4); MEAN CORPUSCULAR HGB CONC 33.7 g/dL (32.0-36.0); MEAN CORPUSCULAR VOLUME 85 fl (80-97); MONOCYTES % (AUTO) 11.3 % (3-13); PLATELET COUNT 142 10^3/uL (150-450); RED BLOOD COUNT 3.63 10^6/uL (3.72-5.28); RED CELL DISTRIBUTION WIDTH 17.3 % (11.5-14.0); SEGMENTED NEUTROPHILS % (AUTO) 65.6 % (42-78); TOTAL CELLS COUNTED % (AUTO) 100 %; WHITE BLOOD COUNT 6.7 10^3/uL (4.0-10.5)
[2019-09-15 12:39] LABS: ALBUMIN 3.2 g/dL (3.5-5.0); ALKALINE PHOSPHATASE 54 U/L (38-126); ANION GAP 9 (5-19); ASPARTATE AMINO TRANSFERASE 25 U/L (14-36); BILIRUBIN,DIRECT 0.2 mg/dL (0.0-0.4); BILIRUBIN,TOTAL 0.5 mg/dL (0.2-1.3); BLOOD UREA NITROGEN 19 mg/dL (7-20); CALCIUM 8.5 mg/dL (8.4-10.2); CARBON DIOXIDE 27 mmol/L (22-30); CHLORIDE 98 mmol/L (98-107); CREATINE KINASE 25 U/L (30-135); GLUCOSE 105 mg/dL (75-110); TOTAL PROTEIN 6.2 g/dL (6.3-8.2)
[2019-09-15 12:48] LABS: CREATINE KINASE MB 0.76 ng/mL (<4.55)
[2019-09-15 12:51] LABS: TROPONIN I < 0.012 ng/mL
--- NOTE | 2019-09-15 14:16 | ER Document Report ---
ED Blood Pressure Problem - General Chief Complaint: Low Blood Pressure Stated Complaint: BLOOD PRESSURE ISSUES Time Seen by Provider: 09/15/19 13:49 Primary Care Provider: CHANTELL HUNTER MD [Primary Care Provider] - Follow up tomorrow (Call Dr. Hunter tomorrow to schedule an appointment this week.) Mode of Arrival: Medic Information source: Patient, Relative, Emergency Med Personnel, [facility] Records Notes: This 84-year-old female patient is brought to emergency room for low blood pressure. She was seen here on 08/31/2019 for the same complaint. She reports she felt fine when she got up this morning, had a couple coffee with a biscuit and then took her regular medications about 9 AM. At 11 AM she began to feel lightheaded and weak with some blurred vision. They called 911. EMS found the patient with a blood pressure of 86/54 and gave 500 mL's of LR. This brought her pressure up to 145/71. She also complained of a headache and some abdominal pain. She does have some left-sided discomfort from shingles which broke out on 08/21/2019. The patient does have a history of cardiomyopathy, congestive heart failure, hypertension, coronary artery disease. She does have a pacemaker. She is on several blood pressure medications. She takes amlodipine 10 mg daily, hydralazine 25 mg 3 times daily, lisinopril 40 mg twice daily, metoprolol 100 mg twice daily, and valsartan 320 mg daily. The valsartan was started on 08/12/2019. At this time the patient appears to be just finishing the full liter of the LR that EMS hung in route. The patient states that she does not drink much water. She states she drinks coffee and alex tea. She does admit that that is not a lot of volume. She does state that she gets up to urinate frequently during the night and it is a large volume, but she is not on any diuretics. She denies any recent change in bowel habit, denies dark-colored stool. She has not had URI symptoms recently. Her spouse reports that she has a pr oductive cough in the mornings usually, and this morning had some shortness of breath which resolved with her inhalers. She does have COPD. TRAVEL OUTSIDE OF THE [place] IN LAST 30 DAYS: No - Related Data Allergies/Adverse Reactions: Penicillins Allergy (Mild, Verified 03/21/19 12:54) Hives celecoxib Allergy (Verified 03/21/19 12:54) Past Medical History - General Information source: Patient, Relative, Emergency Med Personnel, [facility] Records - Social History Smoking Status: Never Smoker Cigarette use (# per day): No Chew tobacco use (# tins/day): No Smoking Education Provided: No Frequency of alcohol use: None Drug Abuse: None Lives with: Spouse/Significant other Family History: Reviewed & Not Pertinent, Other Patient has suicidal ideation: No Patient has homicidal ideation: No - Past Medical History Cardiac Medical History: Reports: Hx Congestive Heart Failure, Hx Coronary Artery Disease, Hx Hypercholesterolemia, Hx Hypertension Pulmonary Medical History: Reports: Hx Asthma, Hx COPD GI Medical History: Reports: Hx Gastroesophageal Reflux Disease Musculoskeletal Medical History: Reports Hx Arthritis Traumatic Medical History: Reports: Hx Fractures - Multiple rib fractures 04/10/2019 Past Surgical History: Reports: Hx Orthopedic Surgery - cervical fusion, Hx Pacemaker - Immunizations Hx Diphtheria, Pertussis, Tetanus Vaccination: No Hx Pneumococcal Vaccination: 07/21/07 Review of Systems - Review of Systems Constitutional: See HPI EENT: No symptoms reported Cardiovascular: No symptoms reported Respiratory: See HPI Gastrointestinal: No symptoms reported Genitourinary: No symptoms reported Female Genitourinary: Post menopausal Musculoskeletal: Back pain Skin: No symptoms reported Hematologic/Lymphatic: No symptoms reported Neurological/Psychological: No symptoms reported Physical Exam - Vital signs Vitals: Temp 97.6 F 09/15/19 12:02 Interpretation: Normal - General General appearance: Appears well, Alert In distress: None - HEENT Head: Normocephalic, Atraumatic Eyes: Normal Pupils: PERRL Neck: Normal - Respiratory Respiratory status: No respiratory distress Breath sounds: Normal - Cardiovascular Rhythm: Regular Heart sounds: Normal auscultation Murmur: Yes - Abdominal Inspection: Normal Distension: No distension Bowel sounds: Normal Tenderness: Nontender - Back Back: Tender - Extremities General upper extremity: Normal inspection General lower extremity: Normal inspection - Neurological Neuro grossly intact: Yes - Psychological Associated symptoms: Normal affect, Normal mood - Skin Skin Temperature: Warm Skin Moisture: Dry Skin Color: Normal Course - Re-evaluation Re-evalutation: 09/15/19 15:50 At this time the patient's blood pressure is 150 systolic. She is remained with a blood pressure in the 140 to 150 systolic range for the last 2 hours. She is encouraged to drink more fluids throughout the day, especially when she gets up in the morning before she takes her blood pressure medications. She is to call her primary care provider tomorrow to schedule an appointment this week to review her blood pressure medications and diet. - Vital Signs Vital signs: Temp Pulse Resp BP Pulse Ox 98.0 F 83 18 151/55 H 92 09/15/19 16:22 09/15/19 16:22 09/15/19 16:22 09/15/19 16:22 09/15/19 16:22 - Laboratory Result Diagrams: 09/15/19 11:52 09/15/19 11:52 Laboratory results interpreted by me: 09/15/19 09/15/19 09/15/19 11:52 11:52 15:14 RBC 3.63 L Hgb 10.4 L Hct 30.9 L RDW 17.3 H Plt Count 142 L Sodium 133.6 L Creatine Kinase 25 L Total Protein 6.2 L Albumin 3.2 L Urine Ascorbic Acid 40 H - EKG Interpretation by Sd EKG shows normal: [place], Intervals, QRS Complexes, ST-T Waves Rate: Normal - 63 Rhythm: Other - Atrial-paced rhythm Discharge - Discharge Clinical Impression: Hypotension Qualifiers: Hypotension type: unspecified hypotension type Qualified Code(s): I95.9 - Hypotension, unspecified Condition: Stable Disposition: HOME, SELF-CARE Additional Instructions: You have been brought to the emergency room twice in the last 2 weeks for low blood pressure after taking your blood pressure medication. Your blood pressure increased to a normal range after receiving IV fluids. This would suggest that you need to drink more fluids during the day. Try to remember to drink 1 to 2 glasses of water when you get up in the morning before you take your blood pressure medication. If you are feeling a little lightheaded, drink some more water and lay down. If your blood pressure continues to stay low then you will need to return to the emergency room. Call your primary care provider tomorrow to schedule an appointment this week to review your medications and your episodes of low blood pressure. RETURN TO THE EMERGENCY ROOM IF ANY NEW OR WORSENING SYMPTOMS. Referrals: CHANTELL HUNTER MD [Primary Care Provider] - Follow up tomorrow (Call Dr. Hunter tomorrow to schedule an appointment this week.)
[2019-09-15 15:45] LABS: APPEARANCE,URINE CLEAR; BILIRUBIN,URINE NEGATIVE (NEGATIVE); COLOR,URINE YELLOW; GLUCOSE, URINE NEGATIVE (NEGATIVE); KETONES,URINE NEGATIVE (NEGATIVE); LEUKOCYTE ESTERASE,URINE NEGATIVE (NEGATIVE); NITRITE,URINE NEGATIVE (NEGATIVE); PROTEIN,URINE NEGATIVE (NEGATIVE); UROBILINOGEN,URINE NEGATIVE mg/dL (<2.0)
[2019-09-15 16:23] VITALS: BP 151/55
--- NOTE | 2019-09-15 22:59 | EKG REPORT ---
SEVERITY:- ABNORMAL ECG - ATRIAL-PACED RHYTHM : Confirmed by: Mirella Davis MD 15-Sep-2019 22:57:24
== END 2019-09-15 16:22 | disposition home or self-care (01) ==
LOC: ER 11:18
DX: I95.9 Hypotension, unspecified (principal); R51 Headache; R10.9 Unspecified abdominal pain; Z95.0 Presence of cardiac pacemaker; Z79.899 Other long term (current) drug therapy; J44.9 Chronic obstructive pulmonary disease, unspecified; I42.9 Cardiomyopathy, unspecified; I50.9 Heart failure, unspecified; I11.0 Hypertensive heart disease with heart failure; I25.10 Atherosclerotic heart disease of native coronary artery without angina pectoris
CPT/HCPCS: 93005; 99285; 96360; 36415; 82553; 82550; 85025; 80053; 81001; 84484; 93010; J7030

== ENCOUNTER → 2019-09-20 | Outpatient (CLI) | payer MEDICARE, MEDICAID ==
[2019-09-20 10:28] LABS: ABSOLUTE EOSINOPHILS # (AUTO) 0.2 10^3/uL (0.0-0.6); ABSOLUTE LYMPHOCYTES (AUTO) 1.1 10^3/uL (0.5-4.7); ABSOLUTE MONOCYTES (AUTO) 0.4 10^3/uL (0.1-1.4); ABSOLUTE NEUT (AUTO) 2.2 10^3/uL (1.7-8.2); BASOPHILS % (AUTO) 0.8 % (0-2); HEMATOCRIT 32.7 % (36.0-47.0); HEMOGLOBIN 10.9 g/dL (12.0-15.5); LYMPHOCYTES % (AUTO) 27.8 % (13-45); MEAN CORPUSCULAR HEMOGLOBIN 28.6 pg (27.0-33.4); MEAN CORPUSCULAR HGB CONC 33.3 g/dL (32.0-36.0); MEAN CORPUSCULAR VOLUME 86 fl (80-97); PLATELET COUNT 181 10^3/uL (150-450); RED BLOOD COUNT 3.81 10^6/uL (3.72-5.28); RED CELL DISTRIBUTION WIDTH 18.1 % (11.5-14.0); SEGMENTED NEUTROPHILS % (AUTO) 55.4 % (42-78); TOTAL CELLS COUNTED % (AUTO) 100 %
--- NOTE | 2019-09-20 10:53 | RADIOLOGY REPORT (SQ) ---
EXAM DESCRIPTION: CHEST PA/LATERAL COMPLETED DATE/TIME: 09/20/2019 10:04 am REASON FOR STUDY: CHRONIC SYSTOLIC (CONGESTIVE) HEART FAILURE COMPARISON: PA and lateral views of the chest from 11/21/2017. EXAM PARAMETERS: NUMBER OF VIEWS: two views TECHNIQUE: PA and lateral views of the chest were obtained. RADIATION DOSE: NA LIMITATIONS: none FINDINGS: LUNGS AND PLEURA: Left basilar atelectasis. There is no acute consolidation, sizeable ple ural effusion or pneumothorax MEDIASTINUM AND HILAR STRUCTURES: Stable paramediastinal convex opacity in the medial aspect of the r ight hemithorax. HEART AND VASCULAR STRUCTURES: Unchanged borderline cardiomegaly. The pulmonary vasculature is withi n normal limits. BONES: Age indeterminate compression deformity of the superior endplate of the L1 vertebral body. HARDWARE: ACDF hardware and right subclavian vein approach dual lead transvenous pacemaker. OTHER: Vertebral augmentation cement within the L2 vertebral body. IMPRESSION: 1. No acute cardiopulmonary process. 2. Age-indeterminate compression deformity of the superior endplate of the L1 vertebral body that is new from 03/21/2019. If the patient is symptomatic then consider correlation with a MRI or bone scan t o further assess the acuity of the fracture. TECHNICAL DOCUMENTATION: JOB ID: [id number] 2010 [employer]- All Rights Reserved Reading location - IP/workstation name: [email or web address]
[2019-09-21 09:53] LABS: IMMUNOGLOBULIN D QUANT SERUM 1.89 mg/dL (<14.11)
== END ==
LOC: OD 09:25
PROVIDERS: ATTEND Family Medicine
DX: I50.22 Chronic systolic (congestive) heart failure (principal); K92.1 Melena; R77.9 Abnormality of plasma protein, unspecified
CPT/HCPCS: 36415; 71046; 82272; 82784; 82785; 85025; 86320

== ENCOUNTER 2019-11-01 12:35 | Emergency (ER) | payer MEDICARE, MEDICAID ==
[2019-11-01] MEDS ORDERED: NORMAL SALINE 500 ML IV ONE (14:23)
[2019-11-01 15:05] LABS: ABSOLUTE EOSINOPHILS # (AUTO) 0.1 10^3/uL (0.0-0.6); ABSOLUTE LYMPHOCYTES (AUTO) 0.9 10^3/uL (0.5-4.7); ABSOLUTE MONOCYTES (AUTO) 0.5 10^3/uL (0.1-1.4); ABSOLUTE NEUT (AUTO) 4.2 10^3/uL (1.7-8.2); BASOPHILS % (AUTO) 0.6 % (0-2); EOSINOPHILS % (AUTO) 1.9 % (0-6); HEMATOCRIT 34.9 % (36.0-47.0); LYMPHOCYTES % (AUTO) 15.9 % (13-45); MEAN CORPUSCULAR HEMOGLOBIN 29.7 pg (27.0-33.4); MEAN CORPUSCULAR HGB CONC 34.4 g/dL (32.0-36.0); MEAN CORPUSCULAR VOLUME 86 fl (80-97); MONOCYTES % (AUTO) 8.1 % (3-13); PLATELET COUNT 197 10^3/uL (150-450); RED BLOOD COUNT 4.05 10^6/uL (3.72-5.28); SEGMENTED NEUTROPHILS % (AUTO) 73.5 % (42-78); TOTAL CELLS COUNTED % (AUTO) 100 %; WHITE BLOOD COUNT 5.8 10^3/uL (4.0-10.5)
[2019-11-01 15:09] LABS: INTERNATIONAL RATION (INR) 1.58
[2019-11-01 15:10] LABS: PARTIAL THROMBOPLASTIN TIME 34.4 SEC (23.5-35.8)
[2019-11-01 15:29] LABS: ALBUMIN 3.4 g/dL (3.5-5.0); ALKALINE PHOSPHATASE 81 U/L (38-126); ANION GAP 7 (5-19); ASPARTATE AMINO TRANSFERASE 19 U/L (14-36); BILIRUBIN,TOTAL 0.6 mg/dL (0.2-1.3); BLOOD UREA NITROGEN 21 mg/dL (7-20); CALCIUM 8.7 mg/dL (8.4-10.2); CARBON DIOXIDE 30 mmol/L (22-30); CHLORIDE 93 mmol/L (98-107); GLUCOSE 129 mg/dL (75-110); POTASSIUM 3.3 mmol/L (3.6-5.0)
--- NOTE | 2019-11-01 15:31 | RADIOLOGY REPORT (SQ) ---
EXAM DESCRIPTION: CHEST SINGLE VIEW IMAGES COMPLETED DATE/TIME: 11/01/2019 1:40 pm REASON FOR STUDY: sobr COMPARISON: 09/20/2019 EXAM PARAMETERS: NUMBER OF VIEWS: One view. TECHNIQUE: Single frontal radiographic view of the chest acquired. RADIATION DOSE: NA LIMITATIONS: None. FINDINGS: LUNGS AND PLEURA: Lungs are hyperinflated. Linear atelectasis at the right mid lung and l eft lung base unchanged. No focal consolidation or pleural effusion. MEDIASTINUM AND HILAR STRUCTURES: Stable appearance of the mediastinum with convex opacity at the med ial aspect right hemithorax, unchanged from prior examinations. HEART AND VASCULAR STRUCTURES: Heart normal in size. Normal vasculature. BONES: No acute findings. HARDWARE: Right infraclavicular pacemaker with intact lead wires unchanged. Partial visualization ce rvical spine fixation. OTHER: No other significant finding. IMPRESSION: No significant interval change. Hyperinflated lungs consistent with obstructive lung di sease. No acute cardiopulmonary disease. TECHNICAL DOCUMENTATION: JOB ID: [id number] 2010 [employer]- All Rights Reserved Reading location - IP/workstation name: [email or web address]
[2019-11-01 15:39] LABS: NT PRO BNP 986 pg/mL (<450)
[2019-11-01 15:42] LABS: TROPONIN I < 0.012 ng/mL
[2019-11-01] MEDS ORDERED: POTASSI CL 20 MEQ/50 ML RIDER 20 MEQ/50 ML RTUPB IV ONE (15:49)
[2019-11-01 17:51] LABS: APPEARANCE,URINE CLEAR; BILIRUBIN,URINE NEGATIVE (NEGATIVE); COLOR,URINE YELLOW; GLUCOSE, URINE NEGATIVE (NEGATIVE); KETONES,URINE NEGATIVE (NEGATIVE); LEUKOCYTE ESTERASE,URINE TRACE (NEGATIVE); NITRITE,URINE NEGATIVE (NEGATIVE); PROTEIN,URINE NEGATIVE (NEGATIVE); URINE SPECIFIC GRAVITY 1.013
--- NOTE | 2019-11-01 18:39 | EKG REPORT ---
SEVERITY:- ABNORMAL ECG - ATRIAL-PACED COMPLEXES LVH WITH SECONDARY REPOLARIZATION ABNORMALITY BORDERLINE PROLONGED QT INTERVAL : Confirmed by: Ari Garcia MD 01-Nov-2019 18:39:08
[2019-11-01] MEDS ORDERED: POTASSIUM CHLORIDE 10 MEQ TABLET.ER PO ONE (18:55)
[2019-11-01] MEDS ORDERED: SODIUM CHLORIDE 1 GM TABLET PO ONE (18:59)
--- NOTE | 2019-11-01 19:00 | RADIOLOGY REPORT (SQ) ---
EXAM DESCRIPTION: CT HEAD WITHOUT IMAGES COMPLETED DATE/TIME: 11/01/2019 5:46 pm REASON FOR STUDY: headache, left sided COMPARISON: CT head, 08/11/2018. TECHNIQUE: Axial images acquired through the brain without intravenous contrast. Images reviewed wi th bone, brain and subdural windows. Additional sagittal and coronal reconstructions were generated. Images stored on PACS. All CT scanners at this facility use dose modulation, iterative reconstruction, and/or weight based d osing when appropriate to reduce radiation dose to as low as reasonably achievable (ALARA). [facility]: Dose Right [facility]: CareDose [facility]: Dose Right [facility]: Teradose 4D [facility]: [employer] RADIATION DOSE: CT Rad equipment meets quality standard of care and radiation dose reduction techniq ues were employed. CTDIvol: 53.2 mGy. DLP: 964 mGy-cm. mGy. LIMITATIONS: None. FINDINGS: VENTRICLES: Normal size and contour. CEREBRUM: No masses. No hemorrhage. No midline shift. No evidence for acute infarction. Normal gra y/white matter differentiation. No areas of low density in the white matter. CEREBELLUM: No masses. No hemorrhage. No alteration of density. No evidence for acute infarction. EXTRAAXIAL SPACES: No fluid collections. No masses. ORBITS AND GLOBE: No intra- or extraconal masses. Normal contour of globe without masses. CALVARIUM: No fracture. PARANASAL SINUSES: No fluid or mucosal thickening. SOFT TISSUES: No mass or hematoma. OTHER: No other significant finding. IMPRESSION: No acute intracranial hemorrhage, mass, or evidence of acute territorial infarct. EVIDENCE OF ACUTE STROKE: NO. COMMENT: Quality ID # 436: Final reports with documentation of one or more dose reduction techniques (e.g., Automated exposure control, adjustment of the mA and/or kV according to patient size, use of iterative reconstruction technique) TECHNICAL DOCUMENTATION: JOB ID: [id number] 2010 [employer]- All Rights Reserved Reading location - IP/workstation name: [email or web address]
--- NOTE | 2019-11-01 19:08 | RADIOLOGY REPORT (SQ) ---
EXAM DESCRIPTION: CT ABD/PELVIS WITH IV ORAL IMAGES COMPLETED DATE/TIME: 11/01/2019 5:47 pm REASON FOR STUDY: abd pain. Patient reports no pain. Previous hysterectomy. COMPARISON: None. TECHNIQUE: CT scan of the abdomen and pelvis performed using helical scanning technique with dynamic intravenous contrast injection. No oral contrast. Images reviewed with lung, soft tissue, and bone windows. Reconstructed coronal and sagittal MPR images reviewed. Delayed images for evaluation of the urinary system also acquired. All images stored on PACS. All CT scanners at this facility use dose modulation, iterative reconstruction, and/or weight based d osing when appropriate to reduce radiation dose to as low as reasonably achievable (ALARA). [facility]: Dose Right [facility]: CareDose [facility]: Dose Right [facility]: Teradose 4D [facility]: 3TIER CONTRAST TYPE AND DOSE: contrast/concentration: Isovue 350.00 mg/ml; Total Contrast Delivered: 80.0 ml; Total Saline Delivered: 57.0 ml RENAL FUNCTION: GFR > 60. RADIATION DOSE: CT Rad equipment meets quality standard of care and radiation dose reduction techniq ues were employed. CTDIvol: 9.6 - 20.4 mGy. DLP: 1627 mGy-cm.. LIMITATIONS: None. FINDINGS: LOWER CHEST: No focal consolidation or pleural effusion. Minimal atelectasis at the left lung base. Moderate cardiomegaly. No pericardial effusion. LIVER: Normal size. No masses. No dilated ducts. SPLEEN: Normal size. No focal lesions. PANCREAS: No masses. No significant calcifications. No adjacent inflammation or peripancreatic fluid collections. Pancreatic duct not dilated. GALLBLADDER: No identified stones by CT criteria. No inflammatory changes to suggest cholecystitis. ADRENAL GLANDS: No significant masses or asymmetry. RIGHT KIDNEY AND URETER: No solid masses. No significant calcifications. There is very mild right hydronephrosis and hydroureter to the level of the ureterovesical junction. No obstructing renal or ureteral calculus. No perinephric fluid or inflammatory change. LEFT KIDNEY AND URETER: No solid masses. No significant calcifications. No hydronephrosis or hydr oureter. AORTA AND VESSELS: No aneurysm. No dissection. Renal arteries, SMA, celiac without stenosis. RETROPERITONEUM: No retroperitoneal adenopathy, hemorrhage or masses. BOWEL AND PERITONEAL CAVITY: Moderate amount of stool throughout the colon and in the rectum. No bow el obstruction. No bowel wall thickening. No significant inflammatory change. No ascites or pneumo peritoneum. APPENDIX: Not visualized. PELVIS: Post hysterectomy. The urinary bladder is moderately distended. No bladder wall thickening, intraluminal bladder mass or debris. Calcified pelvic phleboliths are noted. ABDOMINAL WALL: No masses. No hernias. BONES: There is an age-indeterminate severe compression fracture at the T12 level with approximately 70% vertebral body height loss. Mild retropulsion of the superior endplate fracture fragments. Kyph oplasty at L1 unchanged from prior radiograph. Laminectomy and fusion L5-S1. No suspicious bone les ions. OTHER: No other significant finding. IMPRESSION: 1. Age-indeterminate severe compression fracture at the T12 vertebral body with retropulsed fracture fragments at this level. Mild acquired spinal canal stenosis secondary to retropulsed fracture fragm ents. Clinical correlation and correlation for patient's point tenderness recommended. 2. Moderately distended urinary bladder. This could be seen with bladder outlet obstruction or neuro genic bladder. Clinical correlation. 3. Report Mild right hydronephrosis and hydroureter which may represent vesicoureteral reflux seconda ry to the distended urinary bladder or possibly mild ureteral obstruction. 4. No renal or ureteral calculi. TECHNICAL DOCUMENTATION: JOB ID: [id number] Quality ID # [id number]: Final reports with documentation of one or more dose reduction techniques (e.g., Au tomated exposure control, adjustment of the mA and/or kV according to patient size, use of iterative reconstruction technique) 2010 [employer]- All Rights Reserved Reading location - IP/workstation name: [email or web address]
--- NOTE | 2019-11-01 19:31 | ER Document Report ---
Entered by SHELBY DAVALOS SCRIBE 11/01/19 1427 Acting as scribe for:KALLI MCCARTNEY MD ED General - General Chief Complaint: General Weakness Stated Complaint: POSSIBLE RASH Time Seen by Provider: 11/01/19 13:47 Primary Care Provider: CHANTELL HUNTER MD [Primary Care Provider] - Follow up as needed Information source: Patient Notes: This 84-year-old female presents to the emergency department with a chief complaint of general weakness that began this morning. Patient says "my legs just give up". Patient reports shaking, poor appetite, headache, constipation, bruising easily and rash. Patient explains that she has had shingles on her "back to front" for the past 4 months. Patient said that she has seen a physician for this complaint and they told her that the rash will "go away on it's own". Patient denies fever, chills and pain with the rash. TRAVEL OUTSIDE OF THE [place] IN LAST 30 DAYS: No - Related Data Allergies/Adverse Reactions: Penicillins Allergy (Mild, Verified 03/21/19 12:54) Hives celecoxib Allergy (Verified 03/21/19 12:54) Past Medical History - General Information source: Patient - Social History Smoking Status: Never Smoker Cigarette use (# per day): No Chew tobacco use (# tins/day): No Frequency of alcohol use: None Drug Abuse: None Family History: Reviewed & Not Pertinent, Other - Past Medical History Cardiac Medical History: Reports: Hx Congestive Heart Failure, Hx Coronary Artery Disease, Hx Hypercholesterolemia, Hx Hypertension Pulmonary Medical History: Reports: Hx Asthma, Hx COPD GI Medical History: Reports: Hx Gastroesophageal Reflux Disease Musculoskeletal Medical History: Reports Hx Arthritis Traumatic Medical History: Reports: Hx Fractures - Multiple rib fractures 2018 Past Surgical History: Reports: Hx Cardiac Surgery - paced, Hx Orthopedic Surgery - cervical fusion, Hx Pacemaker - Immunizations Hx Diphtheria, Pertussis, Tetanus Vaccination: No Hx Pneumococcal Vaccination: 07/21/07 Review of Systems - Review of Systems Constitutional: See HPI, Weakness, Weight loss. denies: Chills, Fever EENT: See HPI, Difficulty swallowing Cardiovascular: No symptoms reported Respiratory: No symptoms reported Gastrointestinal: See HPI, Constipation, Poor appetite. denies: Abdominal pain Genitourinary: No symptoms reported Female Genitourinary: No symptoms reported Musculoskeletal: No symptoms reported Skin: No symptoms reported Hematologic/Lymphatic: See HPI, Easy bruising Neurological/Psychological: See HPI, Headaches -: Yes All other systems reviewed and negative Physical Exam - Vital signs Vitals: Temp Pulse Resp BP Pulse Ox 97.9 F 62 14 138/74 H 94 11/01/19 12:42 11/01/19 12:42 11/01/19 12:42 11/01/19 12:42 11/01/19 12:42 - Notes Notes: Physical Exam: General: Alert, appears well. HEENT: Normocephalic. Atraumatic. PERRL. Extraocular movements intact. Oropharynx clear. Dry tounge. Neck: Supple. Non-tender. Respiratory: No respiratory distress. Clear and equal breath sounds bilaterally. Cardiovascular: Regular rate and rhythm. Grade 4/6 systolic murmur. Abdominal: Non-tender. Distended. Normal Bowel Sounds. Back: No gross abnormalities. Extremities: Moves all four extremities. Upper extremities: Normal inspection. Normal ROM. Lower extremities: Normal inspection. No edema. Normal ROM. Neurological: Normal cognition. AAOx4. Normal speech. Psychological: Normal affect. Normal Mood. Skin: Warm. Dry. Normal color. Rash is not active and dry. Course - Re-evaluation Re-evalutation: 11/01/19 18:55 Patient has been resting comfortably most of the day not showing any signs of distress with no new complaints. Patient reports that she feels generally weak and admits to not eating well and with loss of appetite in the past several days and also some abdominal pain with constipation. - Vital Signs Vital signs: Temp Pulse Resp BP Pulse Ox 97.9 F 62 14 138/74 H 94 11/01/19 12:42 11/01/19 12:42 11/01/19 12:42 11/01/19 12:42 11/01/19 12:42 - Laboratory Result Diagrams: 11/01/19 14:36 11/01/19 14:36 Laboratory results interpreted by me: 11/01/19 11/01/19 11/01/19 14:36 14:36 14:36 Hct 34.9 L RDW 17.0 H PT 19.0 H Sodium 129.7 L Potassium 3.3 L Chloride 93 L BUN 21 H Glucose 129 H NT-Pro-B Natriuret Pep Total Protein 6.0 L Albumin 3.4 L Urine Urobilinogen Ur Leukocyte Esterase Urine Ascorbic Acid 11/01/19 11/01/19 14:36 17:35 Hct RDW PT Sodium Potassium Chloride BUN Glucose NT-Pro-B Natriuret Pep 986 H Total Protein Albumin Urine Urobilinogen 2.0 H Ur Leukocyte Esterase TRACE H Urine Ascorbic Acid 40 H Laboratories show a sodium of 129 potassium of 3.3. Also noted an elevated BNP of 986. Patient is metabolic pattern consistent with decreased p.o. intake of food and fluids. Also patient has an elevated BNP consistent with congestive heart failure - Diagnostic Test Radiology reviewed: Image reviewed, Reports reviewed Radiology results interpreted by me: 11/01/19 18:54 Chest x-ray read by radiologist shows no acute process pacemaker noted in the right upper lobe chest area no acute process noted. 11/01/19 19:20 CT scan of head showed no acute stroke no acute process. CT scan of abdomen and pelvis pelvis with oral and IV contrast disclosed moderate stool in the colon. No obstruction distended urinary bladder with some mild hydronephrosis noted. And a T12 compression fracture with a retropulsed fragment into the spinal canal. Discussed the T12 compression fracture with patient who is long aware that she has had a compression fracture and pain in her back. - EKG Interpretation by Me Additional EKG results interpreted by me: 11/01/19 18:53 Twelve-lead EKG done 11/01/2019 at 1531 shows atrial paced complexes with a rate of 60 left ventricular hypertrophy with secondary repolarization abnormality. Borderline prolonged QT interval. Discharge - Discharge Clinical Impression: Generalized weakness, Hyponatremia, Hypokalemia, Constipation, Loss of appetite feeding disturbances of nonorganic origin Condition: Stable Disposition: HOME, SELF-CARE Additional Instructions: Hypokalemia You have an abnormally decreased level of serum potassium. Hypokalemia may cause weakness, fatigue, or heart rhythm abnormalities. Sometimes there are no symptoms at all. Usually, low serum potassium is due to taking diuretics (water pills). It can also be due to excessive vomiting or diarrhea. If no obvious cause is evident, further evaluation will be necessary. Treatment is usually oral potassium supplements. Take these exactly as prescribed. You may also want to select foods which are naturally high in potassium -- fruits (such as bananas, cantaloupe, grapes, oranges, prunes, tomatoes), fresh vegetables (potatoes, spinach, beans, peas), orange or tomato juice, tomato pasta sauce, milk, fish (halibut, tuna, salmon, tatiana) A follow-up blood test is usually performed to assure that the potassium is returning to normal. Call the physician if you suffer severe weakness, muscle twitching or cramping, palpitations (pounding or irregular heartbeat), or any other new or alarming symptoms.Hypokalemia Constipation Constipation is a common problem. It is especially likely as you get older. Constipation is a common cause of abdominal pain, but sometimes causes no symptoms at all. Causes of constipation include certain medications, dehydration, diets, inactivity, and low-fiber intake. Rarely, it can be a symptom of underlying disease. The physician has evaluated you for this. Avoid constipation by eating a diet high in fiber, fruits, and vegetables. Drink plenty of liquids. Get regular exercise. If possible, avoid constipating medicines like narcotic pain medication. Some vitamin tablets can cause constipation. Stool softeners may be needed for difficult cases. An excellent stool softener is Konsyl which is available at [employer], and [employer]. Just add a teaspoon to a glass of pineapple or orange juice daily or twice a day if needed. Laxatives are useful for occasional constipation. You should use them only when necessary. Too-frequent use can make your bowels dependent on them. Some over the counter laxatives available without prescription are: Milk of Magnesia, 1-2 tablespoons twice a day Dulcolax, 5 mg pill or 10 mg suppository. Citrate of Magnesia, 4-5 ounces a day for a day or two For acute constipation, Fleet's Enemas and Dulcolax suppositories are helpful. Chronic, plow holder use of laxatives or enemas is not a good idea. Your bowel may become dependant on them. You do not need to have a bowel movement every day. Many people do fine with a bowel movement every three or four days. You should call your doctor or return for re-evaluation if you pass blood in the stool, or if you develop fever or increasing abdominal pain.Hyponatremia You have an abnormally low level of serum sodium, called hyponatremia. Low serum sodium may cause weakness, fatigue, confusion, or even seizures. Usually, low sodium is due to taking diuretics (water pills), combined with drinking too much water. It can also be due to excessive vomiting or diarrhea. If no obvious cause is evident, further evaluation will be necessary. If the hyponatremia results from taking diuretics, it's treated by restricting the amount of water you can drink. If it's due to vomiting and diarrhea, it's treated by drinking liberal amounts of rehydration solution (for example Lytren or Pedialyte). A follow-up blood test is often done to see that the sodium is returning to normal. Call the physician if you have severe weakness, muscle twitching or cramping, palpitations (pounding or irregular heartbeat), confusion, headache, seizures, or any other new or alarming symptoms. Once you get home this evening please restart taking your usual medications that you take on a daily basis. Follow-up with your primary within the next 5 days. Prescriptions: Docusate Sodium [Colace 100 mg Capsule] 100 mg PO DAILY #30 capsule Potassium Chloride 20 meq PO BID 5 Days #10 tablet.er Referrals: CHANTELL HUNTER MD [Primary Care Provider] - Follow up as needed ED NIH Stroke Scale - NIH Stroke Scale *: 1. NIH scale should be completed with appropriate accompanying assessment tools. *: 2. The NIH should reflect what the patient is capable of doing and should not be coached by the clinician. 1a. Level of Consciousness: 0=Alert;keenly responsive -: 1=Drowsy -: 2=Obtunded -: 3=Coma/unresponsive or reflex to noxious stimuli. 1a. Responses: 0 1b. Orientation Questions: a. What month is it? -: b. How old are you? -: 0=Answers both questions correctly. -: 1=Answers one question correctly or patient is intubated or has orotracheal trauma. -: 2=Answers neither question correctly. 1b. Responses: 0 1c. Response to commands: a. Open and close eyes? -: b. Dough Mixer Operator and release hand? -: Credit is given despite weakness. Demonstration of task is permitted. Substitute command if hands cannot be used. -: 0=Performs both tasks correctly -: 1=Performs one task correctly -: 2=Performs neither task correctly 1c. Responses: 0 2. Gaze: Establish eye contact and instruct patient to "Follow my finger" -: 0=Normal -: 1=Partial gaze palsy. Gaze is abnormal in one or both eyes, but where forced deviation or total gaze paresis is not present. -: 2=Forced deviation or total gaze paresis. 2. Responses: 0 3. Visual Coyne: Sees fingers in all four quadrants. -: 0=No visual loss. -: 1=Partial hemianopsia. -: 2=Complete hemianopsia. -: 3=Bilateral hemianopsia (including Cortical blindness) 3. Responses: 0 4. Facial Movement: Instruct patient to: -: a. Show me your teeth -: b. Raise your eyebrows -: c. Close your eyes -: d. Smile -: 0=Normal symmetrical movement -: 1=Minor paralysis (flattened nasolabial fold, asymmetry on smiling). -: 2=Partial paralysis (total or near total paralysis of lower face). -: 3=Complete paralysis of upper and lower face 4. Responses: 0 5. Motor functions (left arm): Alternate sides and extend each arm with palms down (90 degrees if sitting or 45 degrees for supine). -: 0=No drift;limb holds for full 10 seconds. -: 1=Drift; limb holds but drifts down before full 10 seconds, but does not hit bed. -: 2=Some effort against gravity; limb cannot get to or maintain position. -: 3=No effort against gravity; limb falls. -: 4=No movement. -: UN=Amputation, joint fusion, explain in comments. 5. Responses (left arm): 0 5. Motor Functions (right arm): Alternate sides and extend each arm with palms down (90 degrees if sitting or 45 degrees for supine). -: 0=No drift;limb holds for full 10 seconds. -: 1=Drift; limb holds but drifts down before full 10 seconds, but does not hit bed. -: 2=Some effort against gravity; limb cannot get to or maintain position. -: 3=No effort against gravity; limb falls. -: 4=No movement. -: UN=Amputation, joint fusion, explain in comments. 5. Responses (right arm): 0 6. Motor Functions (left leg): With patient lying supine, alternate sides and extend each leg (30 degrees always while supine). -: 0=No drift, leg holds position for full 5 seconds -: 1=Drift; leg falls before full 5 seconds but does not hit bed. -: 2=Some effort against gravity, leg falls to bed but some effort against gravity. -: 3=No effort against gravity, leg falls to bed immediately. -: 4=No movement. -: UN=Amputation, joint fusion; explain in comments. 6. Responses (left leg): 0 6. Motor Functions (right leg): With patient lying supine, alternate sides and extend each leg (30 degrees always while supine). -: 0=No drift, leg holds position for full 5 seconds -: 1=Drift; leg falls before full 5 seconds but does not hit bed. -: 2=Some effort against gravity, leg falls to bed but some effort against gravity. -: 3=No effort against gravity, leg falls to bed immediately. -: 4=No movement. -: UN=Amputation, joint fusion; explain in comments. 6. Responses (right leg): 0 7. Limb Ataxia: With eyes open instruct patient to: -: a. "Touch your finger to your nose". -: b. "Touch your heel to your ann" -: 0=Absent -: 1=Present in one limb. -: 2=Present in two limbs. -: UN=Amputation or joint fusion; explain in comments. 7. Responses: 0 8. Sensory: Test sensation using pinprick or noxious stimuli. Test as many body parts as possible. -: 0=Normal;no sensory loss -: 1=Mile to moderate sensory loss (patient feels pin prick but is less sharp on affected side). -: 2=Severe or total sensory loss. 8. Responses: 0 9. Best Language: Instruct patient to: -: a. "Describe what you see in this picture." -: b. "Name the items in this picture." -: c. "Read these sentences." -: 0=No aphasia, normal -: 1=Mild to moderate aphasia. -: 2=Severe aphasia -: 3=Mute, global aphasia, no usable speech or auditory comprehension. 9. Responses: 0 10. Articulation, Dysarthia: Instruct patient to: -: "Read these words" or "Repeat these words" -: 0=Normal -: 1=Mild to moderate; patient may slur some words but can be understood without difficulty. -: 2=Severe; patients speech so slurred as to be unintelligible in the absence of dysphasia. -: UN=Intubated or other physical barrier, explain in comments. 10. Responses: 0 11. Extinction or inattention: 0=No abnormality -: 1= Visual, tactile, auditory, spatial, or personal inattention or extinction to bilateral simulation in one or the sensory modalities. -: 2=Profound jaron-inattention or jaron-inattention to more than one modality; does not recognize own hand. 11. Responses: 0 Total Score: 0 I personally performed the services described in the documentation, reviewed and edited the documentation which was dictated to the scribe in my presence, and it accurately records my words and actions.
[2019-11-01 20:24] VITALS: BP 172/82
== END 2019-11-01 20:21 | disposition home or self-care (01) ==
LOC: ER 12:35
DX: R53.1 Weakness (principal); E87.1 Hypo-osmolality and hyponatremia; E87.6 Hypokalemia; R63.0 Anorexia; R21 Rash and other nonspecific skin eruption; R51 Headache; K59.00 Constipation, unspecified; Z88.0 Allergy status to penicillin; Z88.8 Allergy status to other drugs, medicaments and biological substances; I50.9 Heart failure, unspecified; I25.10 Atherosclerotic heart disease of native coronary artery without angina pectoris; I11.0 Hypertensive heart disease with heart failure; J44.9 Chronic obstructive pulmonary disease, unspecified
CPT/HCPCS: 93005; 99285; 96361; 96365; 96366; 36415; 87040; 83605; 83690; 84443; 85025; 85610; 85730; 80053; 81001; 84484; 83880; 71045; 70450; 74177; 93010; A9270 ×2; J3480; J7040; J3490

== ENCOUNTER → 2020-01-31 | Outpatient (CLI) | payer MEDICARE, MEDICAID ==
[2020-01-31 09:01] LABS: ABSOLUTE EOSINOPHILS # (AUTO) 0.1 10^3/uL (0.0-0.6); ABSOLUTE LYMPHOCYTES (AUTO) 1.8 10^3/uL (0.5-4.7); ABSOLUTE MONOCYTES (AUTO) 0.5 10^3/uL (0.1-1.4); ABSOLUTE NEUT (AUTO) 2.7 10^3/uL (1.7-8.2); BASOPHILS % (AUTO) 0.7 % (0-2); EOSINOPHILS % (AUTO) 2.1 % (0-6); HEMATOCRIT 36.3 % (36.0-47.0); HEMOGLOBIN 12.3 g/dL (12.0-15.5); LYMPHOCYTES % (AUTO) 34.8 % (13-45); MEAN CORPUSCULAR HEMOGLOBIN 29.4 pg (27.0-33.4); MEAN CORPUSCULAR HGB CONC 33.9 g/dL (32.0-36.0); MEAN CORPUSCULAR VOLUME 87 fl (80-97); MONOCYTES % (AUTO) 9.7 % (3-13); PLATELET COUNT 215 10^3/uL (150-450); RED BLOOD COUNT 4.19 10^6/uL (3.72-5.28); RED CELL DISTRIBUTION WIDTH 15.1 % (11.5-14.0); SEGMENTED NEUTROPHILS % (AUTO) 52.7 % (42-78); TOTAL CELLS COUNTED % (AUTO) 100 %
[2020-01-31 09:13] LABS: ALBUMIN 3.9 g/dL (3.5-5.0); ALKALINE PHOSPHATASE 110 U/L (38-126); ANION GAP 5 (5-19); ASPARTATE AMINO TRANSFERASE 24 U/L (14-36); BILIRUBIN,TOTAL 0.6 mg/dL (0.2-1.3); BLOOD UREA NITROGEN 17 mg/dL (7-20); CALCIUM 9.5 mg/dL (8.4-10.2); CARBON DIOXIDE 31 mmol/L (22-30); CHLORIDE 100 mmol/L (98-107); CHOLESTEROL 121.88 mg/dL (0-200); GLUCOSE 114 mg/dL (75-110); POTASSIUM 4.6 mmol/L (3.6-5.0); TOTAL PROTEIN 6.9 g/dL (6.3-8.2); TRIGLYCERIDES 139 mg/dL (<150)
[2020-01-31 09:25] LABS: DIRECT LDL 56 mg/dL (<100)
== END ==
LOC: OD 07:57
PROVIDERS: ATTEND Family Medicine
DX: E78.5 Hyperlipidemia, unspecified (principal); E87.6 Hypokalemia; E53.8 Deficiency of other specified B group vitamins; E55.9 Vitamin D deficiency, unspecified; R73.01 Impaired fasting glucose; Z79.899 Other long term (current) drug therapy
CPT/HCPCS: 36415; 80053; 80061; 82306; 82607; 83036; 83735; 85025

== ENCOUNTER → 2020-07-17 | Outpatient (CLI) | payer MEDICARE, MEDICAID ==
--- NOTE | 2020-07-17 09:29 | WOMENS IMAGING REPORT ---
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 LIMITATIONS: None. FINDINGS: LUMBAR SPINE: The bone mineral density (BMD) measured from L1, L3 and L4 in the AP projection correlates with a T-s core of -1.3, which is osteopenia as defined by the World Health Organization. L2 with excluded from the calculation due to kyphoplasty cement. BMD Change vs Baseline: 15.9%. BMD change from previous 13.8% HIP: The bone mineral density (BMD) measured in the left hip correlates with a T-score of -2.2, which is o steopenia as defined by the World Health Organization. BMD Change vs Baseline: 1.9%. BMD change from previous 5.0%. 10 year Fracture Risk Assessment: Major Osteoporotic Fracture: 21% Hip Fracture: 7.3% IMPRESSION: 1. LUMBAR SPINE WHO CLASSIFICATION: OSTEOPENIA. 2. HIP WHO CLASSIFICATION: OSTEOPENIA. OVERALL ASSESSMENT: WHO CLASSIFICATION: OSTEOPENIA. COMMENT: The World Health Organization defines low BMD as follows: T-score: Normal: At or above -1.0 Osteopenia: Between -1.0 and -2.5 Osteoporosis: At or below -2.5 without fractures Established osteoporosis: At or below -2.5 with fractures In general, you may wish to consider: Diagnosis Treatment Follow-up DEXA Normal BMD Prevention 2-3 years Osteopenia Prevention/Therapy 1-2 years Osteoporosis Therapy Yearly TECHNICAL DOCUMENTATION: JOB ID: [id number] 2010 [employer]- All Rights Reserved Reading location - IP/workstation name: [email or web address]
--- NOTE | 2020-07-17 10:42 | WOMENS IMAGING REPORT ---
EXAM DESCRIPTION: 3D SCREENING MAMMO BILAT IMAGES COMPLETED DATE/TIME: 07/17/2020 8:48 am REASON FOR STUDY: ROUTINE BILATERAL SCREENING;Z12.31 Z12.31 ENCNTR SCREEN MAMMOGRAM FOR MALIGNANT N EOPLASM OF AKIKO M81.0 AGE-RELATED OSTEOPOROSIS W/O CURRENT PATHOLOGICAL FRAC COMPARISON: 2017 and subsequent. EXAM PARAMETERS: Standard craniocaudal and mediolateral oblique views of each breast recorded using digital acquisition and breast tomosynthesis. Read with the assistance of CAD. .FORMERLY [facility] - [employer] Version 9.2 LIMITATIONS: None. FINDINGS: Findings present which are benign by mammographic criteria. No suspicious masses, calcific ations or architectural distortion. Pertinent benign findings: Diffuse bilateral vascular and secretory benign calcifications, grossly st able. Benign mammographic findings may include one or more of the following: Smooth masses, popcorn/rim/coa rse calcifications, asymmetries, post-procedure changes, and lesions with long-standing stability. IMPRESSION: BENIGN MAMMOGRAPHIC FINDINGS. BIRADS 2 BREAST DENSITY: c. The breasts are heterogeneously dense, which may obscure small masses. BIRAD: ASSESSMENT: 2 BENIGN FINDING(S) RECOMMENDATION: ROUTINE SCREENING COMMENT: The patient has been notified of the results by letter per MQSA requirements. Additional no tification policies are in place for contacting patient with suspicious or incomplete findings. Quality ID #[id number]: The [employer] recommends an annual screening mammogram for women aged 40 years or over. This facility utilizes a reminder system to ensure that all patients receive reminder letters, and/or direct phone calls for appointments. This includes reminders for routine scr eening mammograms, diagnostic mammograms, or other Breast Imaging Interventions when appropriate. Th is patient will be placed in the appropriate reminder system. TECHNICAL DOCUMENTATION: FINDING NUMBER: (1) ASSESSMENT: (1) JOB ID: [id number] 2010 [employer]- All Rights Reserved Reading location - IP/workstation name: [email or web address]
== END ==
LOC: WI 08:30
PROVIDERS: ATTEND Family Medicine
DX: Z12.31 Encounter for screening mammogram for malignant neoplasm of breast (principal); M81.0 Age-related osteoporosis without current pathological fracture
CPT/HCPCS: 77063; 77067; 77080